=== PATIENT | male | born 1970 | race Two or more races ===

== ENCOUNTER 2022-10-16 09:09 | Outpatient (RCR) | payer OTHER, SELFPAY | END 2022-10-17 15:03 | disposition home or self-care (01) | LOC: PT 09:09 | PROVIDERS: PCP Family Medicine; Visit Provider Family Medicine | DX: M54.50 Low back pain, unspecified (principal) ==

== ENCOUNTER 2022-10-22 10:19 | Outpatient (OUT) | payer OTHER, SELFPAY ==
--- NOTE | 2022-10-22 10:45 | MR_ITS ---
The [address] [address] Patient Name: DOMENICO MCKEON MRN: [id number] date: 1970 Sex: M Assigned Patient Location: MRI Current Patient Location: MRI Accession/Order Number: [id number] Exam Date: 10/22/2022 10:45 Report Date: 10/22/2022 15:41 At the request of: BRANDON LOVE Procedure: MR thoracic spine wo con EXAMINATION: MR thoracic spine wo con HISTORY: Chronic bilateral thoracic back pain M54.6 ; chronic pain radiating into left shoulder COMPARISON: CT chest 07/03/2022 TECHNIQUE: Axial T2; Sagittal T1, T2, and Stir sequences. Images were performed without contrast. FINDINGS: CORD: Normal caliber, contour, and signal intensity. BONES: No fracture, pars defect, or osseous lesion. DISCS: No significant disc/facet abnormality, spinal stenosis, or foraminal stenosis. PARASPINAL AREA: No visible mass. OTHER: Negative. IMPRESSION: 1. No appreciable central canal or foraminal stenosis, or significant degenerative changes to account for patient's symptoms. Electronically authenticated by: MADDI BENTLEY Date: 10/22/2022 15:41
== END 2022-10-22 10:20 ==
PROVIDERS: PCP Family Medicine; Visit Provider Family Medicine
DX: M54.6 Pain in thoracic spine (principal); E11.65 Type 2 diabetes mellitus with hyperglycemia; I10 Essential (primary) hypertension
CPT/HCPCS: 72146

== ENCOUNTER 2023-04-20 11:33 | Outpatient (OUT) | payer OTHER, SELFPAY ==
[2023-04-20 12:11] LABS: Estimated Average Glucose 128 mg/dL; Glycohemoglobin A1C 6.1 % (4.5-6.2)
== END 2023-04-20 11:34 | disposition home or self-care (01) ==
LOC: LAB 11:34
PROVIDERS: PCP Family Medicine; Visit Provider Family Medicine
DX: E11.65 Type 2 diabetes mellitus with hyperglycemia (principal)
CPT/HCPCS: 36415; 83036

== ENCOUNTER 2023-11-13 16:01 | Outpatient (OUT) | payer OTHER, SELFPAY ==
--- OUTSIDE RECORDS SUMMARY | 2023-11-13 16:05 | XMS_ITS ---
Patient Summarization (C-CDA 2.1 CCD) Created on: November 13, 2023 DOMENICO MCKEON : 1970 Sex: Male Author Organization Sample organization Care Team Providers Care Software Developer Manager Name Role Phone PHYSICIAN, DEFAULT Unavailable Unavailable PHYSICIAN, DEFAULT Unavailable Unavailable PHYSICIAN, DEFAULT Unavailable Unavailable PHYSICIAN, DEFAULT Unavailable Unavailable NADERER, DR BLAYNE Dominguez Attending Unavailable NADERER, DR BLAYNE Dominguez Primary Care Unavailable NADERER, DR BLAYNE Dominguez Admitting Unavailable NADERER, DR BLAYNE Dominguez Attending Unavailable NADERER, DR BLAYNE Dominguez Primary Care Unavailable NADERER, DR BLAYNE Dominguez Admitting Unavailable REINECK, DR BARRERA Bautista Consulting Unavailabl e INEZEBLEONEL, DR MADDI Dao Consulting Unavailable NADERER, DR BLAYNE Dominguez Consulting Unavailable GRECHNY ., OCTAVIANO STONE Consulting Unavailabl e TROTTI, GIRJEROME Consulting Unavailable SISTER, MAC Consulting Unavailable DIAB ., PHYLLIS Consulting Unavailable NADERER, DR BLAYNE Dominguez Primary Care Unavailable WEST, DR MERT Rawls Consulting Unavailable HIGHLANDER, DARRELL Diego Attending Unavailable HIGHLANDER, DARRELL Diego Admitting Unavailable HIGHLANDER, DARRELL Diego Consulting Unavailable NADERER, DR BLAYNE Dominguez Consulting Unavailable NADERER, DR BLAYNE Dominguez Attending Unavailable NADERER, DR BLAYNE Dominguez Admitting Unavailable NADERER, DR BLAYNE Dominguez Primary Care Unavailable NADERER, DR BLAYNE Dominguez Attending Unavailable NADERER, DR BLAYNE Dominguez Admitting Unavailable NADERER, DR BLAYNE Dominguez Primary Care Unavailable WEST, DR MERT Rawls Consulting Unavailable NADERER, DR BLAYNE Dominguez Consulting Unavailable NADERER, DR BLAYNE Dominguez Consulting Unavailable NADERER, DR BLAYNE Dominguez Attending Unavailable NADERER, DR BLAYNE Dominguez Admitting Unavailable NADERER, DR BLAYNE Dominguez Primary Care Unavailable NADERER, DR BLAYNE Dominguez Attending Unavailable NADERER, DR BLAYNE Dominguez Admitting Unavailable NADERER, DR BLAYNE Dominguez Primary Care Unavailable NADERER, DR BLAYNE Dominguez Attending Unavailable ZIEBER, DR MADDI Dao Consulting Unavailable NADERER, DR BLAYNE Dominguez Primary Care Unavailable NADERER, DR BLAYNE Dominguez Admitting Unavailable NADERER, DR BLAYNE Dominguez Consulting Unavailable NADERER, DR BLAYNE Dominguez Consulting Unavailable NADERER, DR BLAYNE Dominguez Attending Unavailable NADERER, DR BLAYNE Dominguez Primary Care Unavailable NADERESylwia, DR BLAYNE Dominguez Admitting Unavailable ROSEMARY ENG Consulting Unavailable NADERESylwia, DR BLAYNE Dominguez Attending Unavailable NADERER, DR BLAYNE Dominguez Admitting Unavailable NADERER, DR BLAYNE Dominguez Primary Care Unavailable NADERER, DR BLAYNE Dominguez Primary Care Unavailable HAY ., DR SIMON Attending Unavailable HAY ., DR SIMON Admitting Unavailable HAY ., DR SIMON Consulting Unavailable NADERESylwia, DR BLAYNE Dominguez Primary Care Unavailable DAVE, YOBANI Diego Admitting Unavailable KATLOREN, YOBANI Diego Attending Unavailable GRECHNY ., OCTAVIANO STONE Consulting Unavailsonia BENTON, JOHN Consulting Unavailable Blayne Love MD Primary Care Provider [phone] IVAN, BLAYNE Attending Unavailable NADERESylwia, BLAYNE Attending Unavailable IVAN, BLAYNE Attending Unavailable Encounters Encounter Date Encounter Type Care Provider Facility Start: 11-09-2023 End: 11-09-2023 ambulatory BLAYNE LOVE Not Available Start: 08-10-2023 End: 08-10-2023 ambulatory BLAYNE LOVE Not Available Start: 06-30-2023 Refill Blayne Diego Work Phone: [facility] Comment on above: Chronic migraine wit hout aura, not intractable, without status migrainosus (CMS/HCC); Chronic migraine without aura (CMS/HCC) Start: 06-26-2023 Refill Blayne Diego Work Phone: [facility] Comment on above: Other specified abno rmal findings of blood chemistry Start: 06-23-2023 Refill Blayne Diego Work Phone: [facility] Comment on above: 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, bilateral Start: 04-20-2023 End: 04-20-2023 ambulatory BLAYNE LOVE Not Available Start: 08-01-[address] BLAYNE LOVE Facil ity:[facility] Start: 07-03-2022 End: 07-03-[address] BLAYNE LOVE Facility:[facility] Start: 06-24-2022 End: 06-25-[address] BLAYNE LOVE Facility:[facility] Start: 05-05-2022 End: 05-05-[address] BLAYNE LOVE Facility:[facility] Start: 04-30-2022 End: 04-30-[address] BLAYNE LOVE Facility:[facility] Start: 02-06-[address] BLAYNE LOVE [facility] ity:[facility] Start: 02-05-2022 End: 02-06-[address] BLAYNE LOVE Facility:[facility] Start: 01-29-2022 End: 01-30-[address] BLAYNE LOVE Facility:[facility] Start: 08-30-2021 End: 12-13-[address] BLAYNE LOVE Facility:[facility] Start: 08-29-2021 End: 08-30-[address] BLAYNE LOVE Facility:[facility] Start: 08-16-2021 End: 08-17-[address] BLAYNE LOVE Facility:[facility] Start: 08-08-2021 End: 08-09-[address] BLAYNE LOVE Facility:[facility] Start: 04-20-2017 End: 04-21-2017 Ambulatory DEFAULT PHYSICIAN Facility:[facility] Start: 04-15-2017 End: 04-16-2017 Ambulatory DEFAULT PHYSICIAN Facility:[facility] Medical Equipment Procedure Code Equipment Code Equipment Origin al Text Equipment Identifier Dates USE DIRECTED WITH LANCETS [id number] Start: 12-30-2022 USE 1 A DAY [id number] Start: 03-07-2023 TEST ONCE A DAY [id number] Start: 04-12-2023 Immunizations Immunization Date Immunization Notes Care Provider [facility] 07-02-2022 influenza virus vacc ine, unspecified formulation Blayne Love MD Work Phone: [facility] Medications Current Medications Medication Drug Class(es) Dates Sig (Normalized) Sig (Original) acetaminophen 325 mg / butalbital 50 mg / caffeine 40 mg oral tablet (4 sources) Barbiturate, Central Nervous System Stimulant, Methylxanthine Start: 06-30-2023 take 1 tablet by mouth every four hours as needed butalbital-acetam inophen-caffeine 50-325-40 MG tablet Indications: Chronic migraine without aura, not intractable, without status migrainosus (CMS/HCC) , Chronic migraine without aura (CMS/HCC) TAKE 1 TABLET BY MOUTH EVERY 4 HOURS NEEDED 60 tablet 4 06/30/2023 Active Start: 05-01-2023 End: 06-30-2023 take 1 tablet by mouth every four hours as needed ccagqkyjmw-imnpasqltvtvx-ftcknpyn 50-325 -40 MG tablet Indications: Chronic migraine without aura, not intractable, without status migrainosus (CMS/HCC) , Chronic migraine without aura (CMS/HCC) TAKE 1 TABLET BY MOUTH EVERY 4 HOURS NEEDED 60 tablet 4 05/01/2023 06/30/2023 Discontinued acetaminophen 325 mg / oxyCODONE hydrochloride 10 mg oral tablet (4 sources) Opioid Agonist Start: 05-22-2023 End: 06-23-2023 take 1 tablet by mouth four times daily as needed for pain oxyCODONE-acetaminophen (Percocet) 10-325 MG tablet Indications: Primary osteoarthritis of ankles, bilateral Take 1 tablet by mouth 4 (four) times a day as needed for severe pain 120 tablet 0 06/23/2023 Active amitriptyline hydrochloride 25 mg oral tablet (3 sources) Tricyclic Antidepressant take 1 tablet by mouth at bedtime amitriptyline (Elavil) 25 MG tablet Take 1 tablet by mouth at bedtime. 0 Active amLODIPine 5 mg oral tablet (3 sources) Dihydropyridine Calcium Channel Santiago take 1 tablet by mouth in the morning amLODIPine (Norvasc) 5 MG tablet Take 1 tablet by mouth in the morning. 0 Active atorvastatin 20 mg oral tablet (3 sources) HMG-CoA Reductase Inhibitor take 1 tablet by mouth in the morning atorvastatin (Lipitor) 20 MG tablet Take 1 tablet by mouth in the morning. 0 Active BD Disp Francisco 21G X 1-1/2 misc (3 sources) Start: 06-24-2022 BD Disp Francisco 21G X 1-1/2 misc USE DIRECTED TWICE A MONTH 0 06/24/2022 Active glipiZIDE 10 mg oral tablet (3 sources) Sulfonylurea Start: 06-01-2023 take 1 tablet by mouth twice daily glipiZIDE (Glucotrol) 10 MG tablet Indications: Type 2 diabetes mellitus with hyperglycemia (CMS/HCC) TAKE 1 TABLET BY MOUTH TWICE A DAY 180 tablet 3 06/01/2023 Active hydroCHLOROthiazide 25 mg / lisinopril 20 mg oral tablet (3 sources) Thiazide Diuretic, Angiotensin Converting Enzyme Inhibitor Start: 04-28-2023 take 2 tablets by mouth once daily lisinopril-hydroCHLOROthi azide 20-25 MG tablet Indications: Essential (primary) hypertension (CMS/HCC) , Benign essential hypertension (CMS/HCC) TAKE 2 TABLETS BY MOUTH EVERY DAY 180 tablet 3 04/28/2023 Active 24 hr metFORMIN hydrochloride 500 mg extended release oral tablet (6 sources) Biguanide Start: 06-23-2023 take 2 tablets by mouth twice daily metFORMIN XR (Glucophage-XR) 500 MG 24 hr tablet Indications: Type 2 diabetes mellitus with hyperglycemia, without long-term current use of insulin (CMS/HCC) TAKE 2 TABLETS BY MOUTH TWICE A DAY 360 tablet 3 06/23/2023 Active take 2 tablets by mouth in the m orning metFORMIN (Glucophage) 500 MG tablet Take 2 tablets by mouth in the morning and 2 tablets in the evening. Take with meals. 0 Active polyethylene glycol 3350 01354 mg powder for oral solution (3 sources) Osmotic Laxative take 1 dose by mouth in the morning polyethylene glycol, PEG, 3350 (Miralax) 17 g packet Take 1 packet by mouth in the morning. 0 Active tadalafil 5 mg oral tablet (3 sources) Phosphodiesterase 5 Inhibitor take 1 tablet by mouth in the morning tadalafil (Cialis) 5 MG tablet Take 1 tablet by mouth in the morning. 0 Active 1 ml testosterone cypionate 200 mg/ml injection (4 sources) Androgen Start: 024 testosterone cypionate (Depo-Testosterone) 200 MG/ML injection Indications: Other specified abnormal findings of blood chemistry INJECT 1 ML INTRAMUSCULLARLY EVERY 2 WEEKS 10 mL 0 06/29/2023 Active End: 06-29-2023 testosterone cypionate (Depo -Testosterone) 200 MG/ML injection Inject 1 mL into the shoulder, thigh, or buttocks every 14 (fourteen) days. 0 06/29/2023 Discontinued Tirzepatide (Mounjaro) 5 MG/0.5ML solution pen-injector (3 sources) Start: 04-28-2023 inject 0.5 mL by subcutaneous injection every week Tirzepatide (Mounjaro) 5 MG/0.5ML solution pen-injector Indications: Type 2 diabetes mellitus with hyperglycemia, without long-term current use of insulin (CMS/HCC) Inject 0.5 mL under the skin 1 (one) time per week 2 mL 5 04/28/2023 Active tiZANidine 4 mg oral tablet (3 sources) Central alpha-2 Adrenergic Agonist take 1 tablet by mouth every eight hours as needed tiZANidine (Zanaflex) 4 MG tablet Take 1 tablet by mouth every 8 (eight) hours if needed for muscle spasms. 0 Active topiramate 50 mg oral tablet (3 sources) Start: 06-23-2023 take 1 tablet by mouth twice daily topiramate 50 MG tablet Indications: Chronic migraine without aura with status migrainosus, not intractable (CMS/HCC) TAKE 1 TABLET BY MOUTH TWICE A DAY 180 tablet 3 06/23/2023 Active traZODone hydrochloride 100 mg oral tablet (3 sources) Serotonin Reuptake Inhibitor Start: 06-23-2023 take 1 tablet by mouth once daily at bedtime traZODone (Desyrel) 100 MG tablet Indications: Primary insomnia TAKE 1 TABLET BY MOUTH EVERYDAY AT BEDTIME 90 tablet 3 06/23/2023 Active Payers Date Payer Category Payer Unknown 1970 Unknown [id number] 2.16.84 [id number] 1970 Unknown [id number] 2.16.84 [id number] 1970 Unknown [id number] 2.16.84 [id number] 1970 Unknown [id number] 2.16.84 [id number] 1970 Unknown [id number] 2.16.84 [id number] 1970 Unknown [id number] 2.16.84 [id number] 1970 Unknown [id number] 2.16.84 [id number] 1970 Unknown [id number] 2.16.84 [id number] 1970 Unknown [id number] 2.16.84 [id number] 1970 Unknown [id number] 2.16.84 [id number] 1970 Unknown [id number] 2.16.84 [id number] 1970 Unknown [id number] 2.16.84 [id number] 1970 Unknown [id number] 2.16.84 [id number] 1970 Unknown [id number] 2.16.84 [id number] 1970 Unknown [id number] 2.16.840 .[id number] 1958 Unknown [id number] 1958 Unknown [id number] 1958 Unknown [id number] Plan of Treatment Date Care Activity Detail Author Start: 08-10-2023 End: 08-10-2023 Patient encounter procedure 08/10/2023 11:45 AM EDT Office Visit [facility] [address] [place] [address] Blayne Love MD [address] [place] [phone] [facility] Start: 06-24-2023 Urine screening for protein Diabetes: Urine Protein Screening [facility] Start: 01-16-2023 Influenza vaccination Influenza Vacc ine (#1) [facility] Start: 1981 Glaucoma screening Diabetes: R etinopathy Screening [facility] Start: 1970 Hemoglobin A1c measurement Diabetes: Hemoglobin A1C [facility] Start: 1970 Screening for malign ant neoplasm of colon [facility] Problems Active Problems Problem Classification Problem Date Documented Da te Episodic/Chronic Acute and unspecified renal failure (1 source) Acute kidney failure, unspecified; Translations: [ACUTE KIDNEY FAILURE UNSPECIFIED] Onset: 07-07-2022 Episodic Diabetes mellitus with complications (7 sources) Type 2 diabetes mellitus with hyperglycemia; Translations: [Type 2 diabetes mellitus] Onset: 07-03-2022 Chronic Diabetes mellitus without complication (1 source) Type 2 diabetes mellitus without complications; Translations: [TYPE 2 DM WITHOUT COMPLICATIONS] Onset: 05-07-2022 Chronic Disorders of lipid metabolism (4 sources) Hyperlipidemia, unspecified; Translations: [Dyslipidemia] Onset: 07-07-2022 04-20-2023 Chronic Essential hypertension (8 sources) Essential (primary) hypertension; Translations: [Benign hypertension] Onset: 05-05-2022 Chronic Fluid and electrolyte disorders (1 source) Dehydration; Translations: [DEHYDRATION] Onset: 07-07-2022 Episodic Headache; including migraine (5 sources) Migraine without aura, not refractory ; Translations: [Chronic migraine without aura, not intractable, with status migrainosus] Onset: 04-20-2023 04-20-2023 Chronic Miscellaneous mental health disorders (3 sources) Primary insomnia; Translations: [Primary insomnia] Onset: 04-20-2023 04-20-2023 Chronic Osteoarthritis (5 sources) Primary osteoarthritis, right ankle and foot; Translations: [Primary osteoarthritis of ankle] Onset: 07-07-2022 06-23-2023 Chronic Other aftercare (1 source) residential (current) use of oral hypoglycemic drugs; Translations: [[facility] USE ORAL HYPOGLYCEMIC DX] Onset: 07-07-2022 Episodic Other aftercare (1 source) Other lobsterman (current) drug therapy; Translations: [OTH [facility] CURRENT DRUG THERAPY] Onset: 07-07-2022 Episodic Other connective tissue disease (3 sources) Muscle pain; Translations: [Myalgia, unspecified site] Onset: 04-20-2023 04-20-2023 Episodic Other gastrointestinal disorders (3 sources) Chronic constipation; Translations: [Other constipation] Onset: 04-20-2023 04-20-2023 Episodic Other inflammatory condition of skin (3 sources) Seborrheic dermatitis; Translations: [Seborrheic dermatitis, unspecified] Onset: 04-20-2023 04-20-2023 Episodic Other male genital disorders (3 sources) Secondary erectile dysfunction; Translations: [Male erectile dysfunction, unspecified] Onset: 04-20-2023 04-20-2023 Chronic Other non-traumatic joint disorders (3 sources) Joint pain; Translations: [Pain in unspecified joint] Onset: 04-20-2023 04-20-2023 Episodic Other nutritional; endocrine; and metabolic disorders (1 source) Morbid (severe) obesity due to excess calories; Translations: [MORBID SEVERE OBES D/T EXCESS ANDI] Onset: 06-25-2022 Chronic Other nutritional; endocrine; and metabolic disorders (1 source) Body mass index (BMI) 40.0-44.9, adult; Translations: [BODY MASS INDEX BMI 40.0-44.9 ADULT] Onset: 06-25-2022 Chronic Other nutritional; endocrine; and metabolic disorders (3 sources) Morbid obesity; Translations: [Morbid (severe) obesity due to excess calories] Onset: 04-20-2023 04-20-2023 Chronic Other screening for suspected conditions (not mental disorders or infectious disease) (3 sources) Other specified abnormal findings of blood chemistry; Translations: [Encounter for screening for malignant neoplasm of prostate] Onset: 06-25-2022 06-26-2023 Episodic Other upper respiratory disease (3 sources) Deviated nasal septum; Translations: [Deviated nasal septum] Onset: 04-20-2023 04-20-2023 Episodic Other upper respiratory infections (3 sources) Chronic pansinusitis; Translations: [Chronic pansinusitis] Onset: 04-20-2023 04-20-2023 Chronic Residual codes; unclassified (1 source) Obstructive sleep apnea (adult) (pediatric); Translations: [OBSTRUCTIVE SLEEP APNEA] Onset: 07-07-2022 Chronic Residual codes; unclassified (3 sources) Obstructive sleep apnea syndrome; Translations: [Obstructive sleep apnea (adult) (pediatric)] Onset: 04-20-2023 04-20-2023 Chronic Spondylosis; intervertebral disc disorders; other back problems (5 sources) Dorsalgia, unspecified; Translations: [Lumbago with sciatica, unspecified side] Onset: 08-14-2021 04-20-2023 Episodic Unclassified (3 sources) LOW BACK PAIN, UNSPECIFIED; Translations: [LOW BACK PAIN, UNSPECIFIED] Onset: 08-01-2022 Unclassified (1 source) [facility] INJECT NONINSULN ANTIDIAB; Translations: [[facility] INJECT NONINSULN ANTIDIAB] Onset: 07-07-2022 Unclassified (1 source) CONTACT W/AND (SUSP) EXPOS COVID-19; Translations: [CONTACT W/AND (SUSP) EXPOS COVID-19] Onset: 05-02-2022 Viral infection (1 source) COVID-19; Translations: [COVID-19] Onset: 07-07-2022 Past or Other Problems Problem Classification Problem Date Documented Da te Episodic/Chronic Nonspecific chest pain (4 sources) Chest pain, unspecified; Translations: [CHEST PAIN UNSPECIFIED] Onset: 02-05-2022 Episodic Other connective tissue disease (1 source) Pain in right foot; Translations: [PAIN IN RIGHT FOOT] Onset: 09-04-2021 Episodic Other connective tissue disease (1 source) Pain in left foot; Translations: [PAIN IN LEFT FOOT] Onset: 09-04-2021 Episodic Other connective tissue disease (1 source) Achilles tendinitis, left leg; Translations: [ACHILLES TENDINITIS LEFT LEG] Onset: 08-21-2021 Episodic Other connective tissue disease (1 source) Peroneal tendinitis, left leg; Translations: [PERONEAL TENDINITIS LEFT LEG] Onset: 08-21-2021 Episodic Other non-traumatic joint disorders (4 sources) Pain in right ankle and joints of right foot; Translations: [PAIN IN RIGHT ANKLE] Onset: 08-29-2021 Episodic Other non-traumatic joint disorders (1 source) Pain in left ankle and joints of left foot; Translations: [PAIN IN LEFT ANKLE] Onset: 09-04-2021 Episodic Other non-traumatic joint disorders (1 source) Pain in right knee; Translations: [PAIN IN RIGHT KNEE] Onset: 08-14-2021 Episodic Other upper respiratory infections (1 source) Acute upper respiratory infection, unspecified; Translations: [ACUTE UP RESPIRATORY INFECTION UNS] Onset: 05-02-2022 Episodic Sprains and strains (9 sources) Sprain of unspecified ligament of right ankle, subsequent encounter; Translations: [Sprain of tibiofibular ligament of unspecified ankle, subsequent encounter] Onset: 08-14-2021 Episodic Superficial injury; contusion (1 source) Contusion of left ankle, initial encounter; Translations: [CONTUSION LEFT ANKLE INITIAL ENC] Onset: 08-21-2021 Episodic Unclassified (1 source) LOW BACK PAIN, UNSPECIFIED; Translations: [LOW BACK PAIN, UNSPECIFIED] Onset: 08-01-2022 Procedures Date Procedure Procedure Detail Performing Clinician Start: 06-24-[address] BLAYNE RAMACHANDRAN Comment on above: Performed By: #### P SAS #### [facility] [address] [place] [address] Dr. Sheela Zhang Results Test Name Value Interpretation Reference Range Facility CBC AUTO DIFFon 07-03-2022 BASO # 0.0 103/ul Normal 0.0-0.1 [facility] Comment on above: Performed By: #### C VDTBH #### [facility] [address] [address] [address] Sheela Zhang Basophils/100 WBC (Bld) 0.2 % Normal 0.2-2.0 [facility] Comment on above: Performed By: #### C VDTBH #### [facility] [address] [place] [address] Dr. Sheela Zhang EO # 0.0 103/ul Normal 0.0-0.7 [facility] Comment on above: Performed By: #### C VDTBH #### [facility] [address] [address] [address] Sheela Zhang Eosinophils/100 WBC (Bld) 0.0 % Critically low 0.9-7.0 [facility] Comment on above: Performed By: #### C VDTBH #### [facility] [address] [place] [address] Dr. Sheela Zhang Erythrocyte distribution width (RBC) [Ratio] 13.3 % Normal 11.0-15.0 [facility] Comment on above: Performed By: #### C VDTBH #### [facility] [address] [place] [address] Dr. Sheela Zhang Hematocrit (Bld) [Volume fraction] 45.2 % Normal 42.0-54.0 [facility] Comment on above: Performed By: #### C VDTBH #### [facility] [address] [place] [address] Dr. Sheela Zhang Hemoglobin (Bld) [Mass/Vol] 15.4 g/dL Normal 14.0-18.0 [facility] Comment on above: Performed By: #### C VDTBH #### [facility] [address] [place] [address] Dr. Sheela Zhang IG # 0.04 10e3/ul Critically high 0.00-0.03 [facility] Comment on above: Performed By: #### C VDTBH #### [facility] [address] [place] [address] Dr. Sheela Zhang IG % 0.3 % Normal 0.0-0.5 [facility] Comment on above: Performed By: #### C VDTBH #### [facility] [address] [place] [address] Dr. Sheela Zhang LYMPH # 2.2 103/ul Normal 1.2-3.8 [facility] Comment on above: Performed By: #### C VDTBH #### [facility] [address] [place] [address] Dr. Sheela Zhang Lymphocytes/100 WBC (Bld) 17.4 % Critically low 20.5-60.0 [facility] Comment on above: Performed By: #### C VDTBH #### [facility] [address] [place] [address] Dr. Sheela Zhang MANUAL DIFF REQ NO Normal [facility] Comment on above: Performed By: #### C VDTBH #### [facility] [address] [place] [address] Dr. Sheela Zhang MCH (RBC) [Entitic mass] 29.2 pg Normal 25.9-34.0 [facility] Comment on above: Performed By: #### C VDTBH #### [facility] [address] [place] [address] Dr. Sheela Zhang MCHC (RBC) [Mass/Vol] 34.1 g/dL Normal 29.9-35.2 [facility] Comment on above: Performed By: #### C VDTBH #### [facility] [address] [place] [address] Dr. Sheela Zhang MCV (RBC) [Entitic vol] 85.6 fL Normal 80.0-94.0 [facility] Comment on above: Performed By: #### C VDTBH #### [facility] [address] [place] [address] Dr. Sheela Zhang MONO # 0.8 103/ul Normal 0.3-0.8 [facility] Comment on above: Performed By: #### C VDTBH #### [facility] [address] [place] [address] Dr. Sheela Zhang Monocytes/100 WBC (Bld) 6.1 % Normal 1.7-12.0 [facility] Comment on above: Performed By: #### C VDTBH #### [facility] [address] [place] [address] Dr. Sheela Zhang NEUT # 9.5 103/ul Critically high 1.4-6.5 [facility] Comment on above: Performed By: #### C VDTBH #### [facility] [address] [place] [address] Dr. Sheela Zhang Neutrophils/100 WBC (Bld) 76.0 % Critically high 43.0-75.0 [facility] Comment on above: Performed By: #### C VDTBH #### [facility] [address] [place] [address] Dr. Sheela Zhang Platelet mean volume (Bld) [Entitic vol] 9.7 fL Normal 9.5-13.5 [facility] Comment on above: Performed By: #### C VDTBH #### [facility] [facility] [address] [place] [address] Dr. Sheela Zhang PLT 273 103/ul Normal 150-450 [facility] Comment on above: Performed By: #### C VDTBH #### [facility] [address] [place] [address] Dr. Sheela Zhang RBC 5.28 106/ul Normal 4.70-6.10 [facility] Comment on above: Performed By: #### C VDTBH #### [facility] [address] [place] [address] Dr. Sheela Zhang WBC 12.4 103/ul Critically high 4.0-11.0 [facility] Comment on above: Performed By: #### C [facility] #### [facility] [address] [address] [address] CHEST WO CONon 07-03-2022 CT CHEST WO CON EXAMINATION: CT CHES T WO CON HISTORY: SHORTNESS OF BREATH COMPARISON: No relevant comparison available. TECHNIQUE: Axial, Coronal, and Sagittal images were created without the administration of IV contrast material. Dose reduction techniques were achieved by using automated exposure control and/or adjustment of mA and/or kV according to patient size and/or use of iterative reconstruction technique. FINDINGS: LUNGS: Mild stranding within lung bases. Lungs are otherwise clear. PLEURA: No mass, effusion, or pneumothorax. VASCULATURE: No abnormality. DIVYA: No mass or adenopathy. MEDIASTINUM: No mass or adenopathy. CARDIAC: No enlargement or pericardial thickening. AORTA: No aneurysm or dissection. CHEST WALL: No mass or axillary adenopathy. BONES: No bone lesion or fracture. LIMITED ABDOMEN: No suspicious findings. Limited images of the upper abdomen. OTHER: Negative. IMPRESSION: 1. Trace amount of bibasilar stranding; atelectasis versus scarring versus infectious infiltrates. Electronically authenticated by: MADDI BENTLEY Date: 2022-07-03 08:23 Normal [facility]18 SARS-CoV-2 (COVID-19) RNA KOREY+probe Ql (Unsp spec) Detected Abnormal NOT DETECTED [facility] Comment on above: Result Comment: This test is not yet approved or cleared by the [place] FDA. When there are no FDA-approved or cleared tests available, and other criteria are met, FDA can make tests available under an emergency access mechanism called an Emergency Use Authorization (EUA). The EUA for this test is supported by the [place] of Health and Human Service's declaration that circumstances exist to justify the emergency use of in vitro diagnostics for the detection and/or diagnosis of the virus that causes COVID-19. This EUA will remain in effect for the duration of the COVID-19 declaration justifying emergency of IVDs, unless it is terminated or revoked by the FDA (after which the test may no longer be used). Performed By: #### C VDTBH #### [facility] [address] [address] [address] Sheela Zhang POINT OF CARE GLUCOSEon 06-18 Glucose [Mass/Vol] 458 mg/dL Critically high [address] [place] [address] Comment on above: Performed By: #### P OCGLUC ####[facility] [address] [id number]. Sheela Zhang Glucose [Mass/Vol] 403 mg/dL Critically high [address] [place] [address] Comment on above: Performed By: #### C VDTBH #### [facility] [address] [address] [address] Sheela Zhang Glucose [Mass/Vol] 336 mg/dL Critically high [address] [place] [address] Comment on above: Performed By: #### P OCGLUC #### [facility] [address] [address] [address] Sheela Zhang Glucose [Mass/Vol] 258 mg/dL Critically high [address] [place] [address] Comment on above: Performed By: #### P OCGLUC ####[facility] [address] [address]Dr. Sheela Zhang Glucose [Mass/Vol] 268 mg/dL Critically high [address] [place] [address] Comment on above: Performed By: #### C VDTBH #### [facility] [address] [address] [address] Sheela Zhang PROF 14(COMP METB)on 023 Albumin [Mass/Vol] 4.0 g/dL Normal 3.4-5.0 [facility] Comment on above: Performed By: #### C VDTBH #### [facility] [address] [address] [address] Sheela Zhang Albumin/Globulin [Mass ratio] 1.1 {ratio} Normal [facility] Comment on above: Performed By: #### C VDTBH #### [facility] [address] [address] [address] Sheela Zhang ALP [Catalytic activity/Vol] 105 U/L Normal 46-116 [facility] Comment on above: Performed By: #### C VDTBH #### [facility] [address] [place] [address] Dr. Sheela Zhang ALT [Catalytic activity/Vol] 34 U/L Normal 16-63 [facility] Comment on above: Performed By: #### C VDTBH #### [facility] [address] [address] [address] Sheela Zhang Anion gap [Moles/Vol] 13.4 mmol/L Normal [facility] Comment on above: Performed By: #### C VDTBH #### [facility] [address] [place] [address] Dr. Sheela Zhang AST [Catalytic activity/Vol] 20 U/L Normal 15-37 [facility] Comment on above: Performed By: #### C VDTBH #### [facility] [address] [place] [address] Dr. Sheela Zhang Bilirubin [Mass/Vol] 0.3 mg/dL Normal 0.2-1.0 [facility] Comment on above: Performed By: #### C VDTBH #### [facility] [address] [place] [address] Dr. Sheela Zhang Calcium [Mass/Vol] 9.0 mg/dL Normal 8.5-10.1 [facility] Comment on above: Performed By: #### C VDTBH #### [facility] [address] [address] [address] Sheela Zhang Chloride [Moles/Vol] 97 mmol/L Critically low 98-107 [facility] Comment on above: Performed By: #### C VDTBH #### [facility] [address] [address] [address] Sheela Zhang CO2 [Moles/Vol] 28.2 mmol/L Normal 21.0-32.0 [facility] Comment on above: Performed By: #### C VDTBH #### [facility] [address] [place] [address] Dr. Sheela Zhang Creatinine [Mass/Vol] 1.15 mg/dL Normal 0.70-1.30 [facility] Comment on above: Performed By: #### C VDTBH #### [facility] [address] [place] [address] Dr. Sheela Zhang EGFR-AF ANGUILLAN >60 Normal >=60 [facility] Comment on above: Performed By: #### C VDTBH #### [facility] [address] [address] [address] Sheela Zhang EGFR-NON AF ANGUILLAN >60 Normal >=60 [facility] Comment on above: Performed By: #### C VDTBH #### [facility] [address] [address] [address] Sheela Zhang Globulin (S) [Mass/Vol] 3.5 g/dL Normal [facility] Comment on above: Performed By: #### C VDTBH #### [facility] [address] [place] [address] Dr. Sheela Zhang Glucose [Mass/Vol] 311 mg/dL Critically high 74-106 [facility] Comment on above: Performed By: #### C VDTBH #### [facility] [address] [address] [address] Sheela Zhang Potassium [Moles/Vol] 3.6 mmol/L Normal 3.5-5.1 [facility] Comment on above: Performed By: #### C VDTBH #### [facility] [address] [address] [address] Sheela Zhang Protein [Mass/Vol] 7.5 g/dL Normal 6.4-8.2 [facility] Comment on above: Performed By: #### C VDTBH #### [facility] [address] [address] [address] Sheela Zhang Sodium [Moles/Vol] 135 mmol/L Critically low 136-145 [facility] Comment on above: Performed By: #### C VDTBH #### [facility] [address] [address] [address] Sheela Zhang Urea nitrogen [Mass/Vol] 18.0 mg/dL Normal 7.0-18.0 [facility] Comment on above: Performed By: #### C VDTBH #### [facility] [address] [place] [address] Dr. Sheela Zhang Urea nitrogen/Creatinine [Mass ratio] 15.7 mg/mg Normal [facility] Comment on above: Performed By: #### C VDTBH #### [facility] [address] [place] [address] Dr. Sheela Zhang SED RATE WESTERGRENon 2022 SED RATE 32 mm/hr Critically high <=20 [facility] Comment on above: Performed By: #### P SASC #### [facility] [address] [place] [address] Dr. Sheela Zhang ACETONE SERUMon 07-02-2022 ACETONE Negative Normal NEGATIVE [facility] Comment on above: Performed By: #### C VDTBH #### [facility] [address] [place] [address] Dr. Sheela Zhang CBC AUTO DIFFon 07-02-2022 BASO # 0.0 103/ul Normal 0.0-0.1 [facility] Comment on above: Performed By: #### C BC #### [facility] [address] [place] [address] Dr. Sheela Zhang Basophils/100 WBC (Bld) 0.1 % Critically low 0.2-2.0 [facility] Comment on above: Performed By: #### C BC #### [facility] [address] [place] [address] Dr. Sheela Zhang EO # 0.0 103/ul Normal 0.0-0.7 [facility] Comment on above: Performed By: #### C BC #### [facility] [address] [place] [address] Dr. Sheela Zhang Eosinophils/100 WBC (Bld) 0.2 % Critically low 0.9-7.0 [facility] Comment on above: Performed By: #### C BC #### [facility] [address] [place] [address] Dr. Sheela Zhang Erythrocyte distribution width (RBC) [Ratio] 13.2 % Normal 11.0-15.0 [facility] Comment on above: Performed By: #### C BC #### [facility] [address] [place] [address] Dr. Sheela Zhang Hematocrit (Bld) [Volume fraction] 46.6 % Normal 42.0-54.0 [facility] Comment on above: Performed By: #### C BC #### [facility] [address] [place] [address] Dr. Sheela Zhang Hemoglobin (Bld) [Mass/Vol] 16.0 g/dL Normal 14.0-18.0 [facility] Comment on above: Performed By: #### C BC #### [facility] [address] [place] [address] Dr. Sheela Zhang IG # 0.04 10e3/ul Critically high 0.00-0.03 [facility] Comment on above: Performed By: #### C BC #### [facility] [address] [place] [address] Dr. Sheela Zhang IG % 0.4 % Normal 0.0-0.5 [facility] Comment on above: Performed By: #### C BC #### [facility] [address] [place] [address] Dr. Sheela Zhang LYMPH # 1.4 103/ul Normal 1.2-3.8 [facility] Comment on above: Performed By: #### C BC #### [facility] [address] [place] [address] Dr. Sheela Zhang Lymphocytes/100 WBC (Bld) 15.8 % Critically low 20.5-60.0 [facility] Comment on above: Performed By: #### C BC #### [facility] [address] [place] [address] Dr. Sheela Zhang MANUAL DIFF REQ NO Normal [facility] Comment on above: Performed By: #### C BC #### [facility] [address] [place] [address] Dr. Sheela Zhang MCH (RBC) [Entitic mass] 29.5 pg Normal 25.9-34.0 [facility] Comment on above: Performed By: #### C BC #### [facility] [address] [address] [address] Sheela Zhang MCHC (RBC) [Mass/Vol] 34.3 g/dL Normal 29.9-35.2 [facility] Comment on above: Performed By: #### C BC #### [facility] [address] [address] [address] Sheela Zhang MCV (RBC) [Entitic vol] 86.0 fL Normal 80.0-94.0 [facility] Comment on above: Performed By: #### C BC #### [facility] [address] [address] [address] Sheela Zhang MONO # 0.4 103/ul Normal 0.3-0.8 [facility] Comment on above: Performed By: #### C BC #### [facility] [address] [address] [address] Sheela Zhang Monocytes/100 WBC (Bld) 4.6 % Normal 1.7-12.0 [facility] Comment on above: Performed By: #### C BC #### [facility] [address] [address] [address] Sheela Zhang NEUT # 7.1 103/ul Critically high 1.4-6.5 [facility] Comment on above: Performed By: #### C BC #### [facility] [address] [address] [address] Sheela Zhang Neutrophils/100 WBC (Bld) 78.9 % Critically high 43.0-75.0 [facility] Comment on above: Performed By: #### C BC #### [facility] [address] [address] [address] Sheela Zhang Platelet mean volume (Bld) [Entitic vol] 10.1 fL Normal 9.5-13.5 [facility] Comment on above: Performed By: #### C BC #### [facility] [address] [address] [address] Sheela Zhang PLT 269 103/ul Normal 150-450 [facility] Comment on above: Performed By: #### C BC #### [facility] [address] [address] [address] Sheela Zhang RBC 5.42 106/ul Normal 4.70-6.10 [facility] Comment on above: Performed By: #### C BC #### [facility] [address] [address] [address] Sheela Zhang WBC 8.9 103/ul Normal 4.0-11.0 [facility] Comment on above: Performed By: #### C BC #### [facility] [address] [address] [address] Sheela Zhang ER URINE PROFILEon 3 Bilirubin Ql (U) Negative Normal NEGATIVE [facility] Comment on above: Performed By: #### E RUR ####[facility] [address] [place], [place] [address]Dr. Sheela Zhang Clarity (U) CLEAR Normal CLEAR [facility] Comment on above: Performed By: #### E RUR ####[facility] [address] [place], [place] [address]Dr. Sheela Zhang Color (U) LT. YELLOW Normal YELLOW [facility] Comment on above: Performed By: #### E RUR ####[facility] [address] [place], [place] [address]Dr. Sheela Zhang ERUAHD A micrscopic examination will be performed if indicated. Normal [facility] Comment on above: Performed By: #### E RUR ####[facility] [address] [place], [place] [address]Dr. Sheela Zhang Glucose Ql (U) >1000 Abnormal NEGATIVE [facility] Comment on above: Performed By: #### E RUR ####[facility] [address] [place], [place] [address]Dr. Sheela Zhang Hemoglobin Ql (U) Negative Normal NEGATIVE [facility] Comment on above: Performed By: #### E RUR ####[facility] [address] [place], [place] [address]Dr. Sheela Zhang Ketones Ql (U) Negative Normal NEGATIVE [facility] Comment on above: Performed By: #### E RUR ####[facility] [address] [address]Dr. Sheela Zhang LEUKOCYTES Negative Normal NEGATIVE [facility] Comment on above: Performed By: #### E RUR ####[facility] [address] [address]Dr. Sheela Zhang Nitrite Ql (U) Negative Normal NEGATIVE [facility] Comment on above: Performed By: #### E RUR ####[facility] [address] [place], [place] [address]Dr. Sheela Zhang pH (U) 5.5 [pH] Normal 5-9 [facility] Comment on above: Performed By: #### E RUR ####[facility] [address] [place], [place] [address]Dr. Sheela Zhang SPEC GRAVITY <=1.005 Abnormal 1.005-<=1.025 [facility] Comment on above: Performed By: #### E RUR ####[facility] [address] [place], [place] [address]Dr. Sheela Zhang UA PROTEIN Negative Normal NEGATIVE/ TRACE [facility] Comment on above: Performed By: #### E RUR ####[facility] [address] [place], [place] [address]Dr. Sheela Zhang UR MICRO IND NOT INDICATED Normal [facility] Comment on above: Performed By: #### E RUR ####[facility] [address] [place], [place] [address]Dr. Sheela Zhang Urobilinogen Qn (U) 0.2 {Emanuel'U}/dL Normal 0.2 - 1. 0 [facility] Comment on above: Performed By: #### E RUR ####[facility] [address] [place], [place] [address]Dr. Sheela Zhang LACTATE/LACTIC ACIDon 2022 Lactate [Moles/Vol] 4.5 mmol/L Critically high 0.4-1.9 [facility] Comment on above: Performed By: #### L ACT #### [facility] [address] [address] [address] Sheela Zhang Lactate [Moles/Vol] 3.7 mmol/L Critically high 0.4-1.9 [facility] Comment on above: Performed By: #### L ACT ####[facility] [address] [address]DrDayanara Zhang LIPASEon 07-02-2022 Lipase [Catalytic activity/Vol] 95.0 U/L Normal 73.0-393.0 [facility] Comment on above: Performed By: #### C MP, HSTROPN, LIPA ####[facility] [address] [address]DrDayanara Zhang PH VENOUS BLOODon 07-02-2022 PCO2 VENOUS 34.4 mmHg Critically low 40.0-52.0 [facility] Comment on above: Performed By: #### P HVEN ####[facility] [address] [place], [place] [address]DrDayanara Zhang pH VENOUS 7.387 Normal 7.330-7.430 [facility] Comment on above: Performed By: #### P HVEN ####[facility] [address] [place], [place] [address]Dr. Sheela Zhang POINT OF CARE GLUCOSEon 06-18 Glucose [Mass/Vol] 518 mg/dL Critically high 74-106 [facility] Comment on above: Result Comment: Prev iously Confirmed Performed By: #### P OCGLUC ####[facility] [address] [address]Dr. Sheela Zhang POCGLUC >600 Critically high 74-106 [facility] Comment on above: Result Comment: Prev iously Confirmed Performed By: #### P OCGLUC ####[facility] [address] [place], [place] [address]Dr. Sheela Zhang POCGLUC >600 Critically high 74-106 [facility] Comment on above: Result Comment: Prev iously Confirmed Performed By: #### C VDTBH #### [facility] [address] [address] [address] Sheela Zhang PROF 14(COMP METB)on 023 Albumin [Mass/Vol] 4.0 g/dL Normal 3.4-5.0 [facility] Comment on above: Performed By: #### C MP, HSTROPN, LIPA ####[facility] [address] [address]Dr. Sheela Zhang Albumin/Globulin [Mass ratio] 1.1 {ratio} Normal [facility] Comment on above: Performed By: #### C MP, HSTROPN, LIPA ####[facility] [address] [address]Dr. Sheela Zhang ALP [Catalytic activity/Vol] 114 U/L Normal 46-116 [facility] Comment on above: Performed By: #### C MP, HSTROPN, LIPA ####[facility] [address] [place], [place] [address]Dr. Sheela Zhang ALT [Catalytic activity/Vol] 36 U/L Normal 16-63 [facility] Comment on above: Performed By: #### C MP, HSTROPN, LIPA ####[facility] [address] [place], [place] [address]Dr. Sheela Zhang Anion gap [Moles/Vol] 18.1 mmol/L Normal [facility] Comment on above: Performed By: #### C MP, HSTROPN, LIPA ####[facility] [address] [place], [place] [address]Dr. Sheela Zhang AST [Catalytic activity/Vol] 15 U/L Normal 15-37 [facility] Comment on above: Performed By: #### C MP, HSTROPN, LIPA ####[facility] [address] [place], [place] [address]Dr. Sheela Zhang Bilirubin [Mass/Vol] 0.4 mg/dL Normal 0.2-1.0 [facility] Comment on above: Performed By: #### C MP, HSTROPN, LIPA ####[facility] [address] [place], [place] [address]Dr. Sheela Zhang Calcium [Mass/Vol] 9.1 mg/dL Normal 8.5-10.1 [facility] Comment on above: Performed By: #### C MP, HSTROPN, LIPA ####[facility] [address] [address]Dr. Sheela Zhang Chloride [Moles/Vol] 92 mmol/L Critically low 98-107 [facility] Comment on above: Performed By: #### C MP, HSTROPN, LIPA ####[facility] [address] [address]Dr. Sheela Zhang CO2 [Moles/Vol] 23.7 mmol/L Normal 21.0-32.0 [facility] Comment on above: Performed By: #### C MP, HSTROPN, LIPA ####[facility] [address] [address]Dr. Sheela Zhang Creatinine [Mass/Vol] 1.53 mg/dL Critically high 0.70-1.30 [facility] Comment on above: Performed By: #### C MP, HSTROPN, LIPA ####[facility] [address] [place], [place] [address]Dr. Sheela Zhang EGFR-AF ANGUILLAN 58 mL/min/1.73m2 Critically low >=60 [facility] Comment on above: Performed By: #### C MP, HSTROPN, LIPA ####[facility] [address] [address]Dr. Sheela Zhang EGFR-NON AF ANGUILLAN 48 mL/min/1.73m2 Critically low >=60 [facility] Comment on above: Performed By: #### C MP, HSTROPN, LIPA ####[facility] [address] [address]Dr. Sheela Zhang Globulin (S) [Mass/Vol] 3.7 g/dL Normal [facility] Comment on above: Performed By: #### C MP, HSTROPN, LIPA ####[facility] [address] [address]Dr. Sheela Zhang Glucose [Mass/Vol] 669 mg/dL Critically high 74-106 [facility] Comment on above: Performed By: #### C MP, HSTROPN, LIPA ####[facility] [address] [address]Dr. Sheela Zhang Potassium [Moles/Vol] 3.8 mmol/L Normal 3.5-5.1 [facility] Comment on above: Performed By: #### C MP, HSTROPN, LIPA ####[facility] [address] [address]Dr. Sheela Zhang Protein [Mass/Vol] 7.7 g/dL Normal 6.4-8.2 [facility] Comment on above: Performed By: #### C MP, HSTROPN, LIPA ####[facility] [address] [address]Dr. Sheela Zhang Sodium [Moles/Vol] 130 mmol/L Critically low 136-145 [facility] Comment on above: Performed By: #### C MP, HSTROPN, LIPA ####[facility] [address] [address]Dr. Sheela Zhang Urea nitrogen [Mass/Vol] 24.0 mg/dL Critically high 7.0-18.0 [facility] Comment on above: Performed By: #### C MP, HSTROPN, LIPA ####[facility] [address] [address]Dr. Sheela Zhang Urea nitrogen/Creatinine [Mass ratio] 15.7 mg/mg Normal [facility] Comment on above: Performed By: #### C MP, HSTROPN, LIPA ####[facility] [address] [address]Dr. Sheela Zhang TROPONIN, HIGH SENSITIVITYon 07-02-2022 HSTROP 15.7 pg/mL Normal 4.0-76.1 [facility] Comment on above: Result Comment: CUT- OFF POINTS HAVE BEEN ESTABLISHED BASED ON THE FOURTH UNIVERSAL DEFINITIONS OF MYOCARDIAL INFARCTION. THE UPPER REFERENCE LIMIT (URL) OF TROPONIN, DEFINED THE 99TH PERCENTILE OF cTnI DISTRIBUTION IN A REFERENCE POPULATION, HAS BEEN CONFIRMED THE DECISION THRESHOLD FOR [place] DIAGNOSIS. Performed By: #### C MP, HSTROPN, LIPA ####[facility] [address] [place], [place] [address]ObDr. Sheela Zhang XR CHEST 1 Von 07-02-2022 XR CHEST 1 V ONE-VIEW CHEST RADIOGRAPH, 07/02/2022 6:37 PM EST COMPARISON: Chest, 05/05/2022. CLINICAL HISTORY: Shortness of breath. Findings and impression: 1. Lung volumes are diminished with some crowding of bronchopulmonary vasculature and accentuation of cardiomediastinal silhouette. 2. Some blunting of left costophrenic angle may be due to small left pleural effusion with minimal atelectasis. Some subtle underlying pneumonitis would be difficult to exclude. 3. Questionable pulmonary venous hypertension/pulmonary vascular congestion may be artifactual due to diminished lung volumes. 4. Mild cardiomegaly. 5. No acute osseous abnormality. Electronically authenticated by: Amauri LOPEZ Date: 2022-07-02 19:37 Normal [facility] TESTOSTERONE, TOTALon 2022 Testosterone [Mass/Vol] 259 ng/dL Critically low 264-916 [facility] Comment on above: Result Comment: Adul t male reference interval is based on a population of healthy nonobese males (BMI <30) between 19 and 39 years old. [place] et.al. JCEM 2017,102;4887-3737. PMID: [id number]. Performed By: #### C VDTBH #### [facility] [id number] Sheela Zhang CBC AUTO DIFFon 06-24-2022 BASO # 0.1 103/ul Normal 0.0-0.1 [facility] Comment on above: Performed By: #### P SASC #### [facility] [id number] Sheela Zhang Basophils/100 WBC (Bld) 0.9 % Normal 0.2-2.0 [facility] Comment on above: Performed By: #### P SASC #### [facility] [address] [address] [address] Sheela Zhang EO # 0.3 103/ul Normal 0.0-0.7 [facility] Comment on above: Performed By: #### P SASC #### [facility] [address] [place] [address] Dr. Sheela Zhang Eosinophils/100 WBC (Bld) 2.4 % Normal 0.9-7.0 [facility] Comment on above: Performed By: #### P SASC #### [facility] [address] [place] [address] Dr. Sheela Zhang Erythrocyte distribution width (RBC) [Ratio] 13.7 % Normal 11.0-15.0 [facility] Comment on above: Performed By: #### P SASC #### [facility] [address] [place] [address] Dr. Sheela Zhang Hematocrit (Bld) [Volume fraction] 51.2 % Normal 42.0-54.0 [facility] Comment on above: Performed By: #### P SASC #### [facility] [address] [place] [address] Dr. Sheela Zhang Hemoglobin (Bld) [Mass/Vol] 16.6 g/dL Normal 14.0-18.0 [facility] Comment on above: Performed By: #### P SASC #### [facility] [address] [place] [address] Dr. Sheela Zhang IG # 0.06 10e3/ul Critically high 0.00-0.03 [facility] Comment on above: Performed By: #### P SASC #### [facility] [address] [place] [address] Dr. Sheela Zhang IG % 0.5 % Normal 0.0-0.5 [facility] Comment on above: Performed By: #### P SASC #### [facility] [address] [place] [address] Dr. Sheela Zhang LYMPH # 3.2 103/ul Normal 1.2-3.8 [facility] Comment on above: Performed By: #### P SASC #### [facility] [address] [place] [address] Dr. Sheela Zhang Lymphocytes/100 WBC (Bld) 28.8 % Normal 20.5-60.0 [facility] Comment on above: Performed By: #### P SASC #### [facility] [address] [place] [address] Dr. Sheela Zhang MANUAL DIFF REQ NO Normal [facility] Comment on above: Performed By: #### P SASC #### [facility] [address] [place] [address] Dr. Sheela Zhang MCH (RBC) [Entitic mass] 29.1 pg Normal 25.9-34.0 [facility] Comment on above: Performed By: #### P SASC #### [facility] [address] [place] [address] Dr. Sheela Zhang MCHC (RBC) [Mass/Vol] 32.4 g/dL Normal 29.9-35.2 [facility] Comment on above: Performed By: #### P SASC #### [facility] [address] [place] [address] Dr. Sheela Zhang MCV (RBC) [Entitic vol] 89.7 fL Normal 80.0-94.0 [facility] Comment on above: Performed By: #### P SASC #### [facility] [address] [place] [address] Dr. Sheela Zhang MONO # 0.9 103/ul Critically high 0.3-0.8 [facility] Comment on above: Performed By: #### P SASC #### [facility] [address] [place] [address] Dr. Sheela Zhang Monocytes/100 WBC (Bld) 8.3 % Normal 1.7-12.0 [facility] Comment on above: Performed By: #### P SASC #### [facility] [address] [place] [address] Dr. Sheela Zhang NEUT # 6.7 103/ul Critically high 1.4-6.5 [facility] Comment on above: Performed By: #### P SASC #### [facility] [address] [place] [address] Dr. Sheela Zhang Neutrophils/100 WBC (Bld) 59.1 % Normal 43.0-75.0 [facility] Comment on above: Performed By: #### P SASC #### [facility] [address] [address] [address] Sheela Zhang Platelet mean volume (Bld) [Entitic vol] 10.2 fL Normal 9.5-13.5 [facility] Comment on above: Performed By: #### P SASC #### [facility] [address] [address] [address] Sheela Zhang PLT 269 103/ul Normal 150-450 [facility] Comment on above: Performed By: #### P SASC #### [facility] [address] [address] [address] Sheela Zhang RBC 5.71 106/ul Normal 4.70-6.10 [facility] Comment on above: Performed By: #### P SASC #### [facility] [address] [address] [address] Sheela Zhang WBC 11.3 103/ul Critically high 4.0-11.0 [facility] Comment on above: Performed By: #### P SASC #### [facility] [address] [place] [address] Dr. Sheela Zhang GLYCOHEMOGLOBIN A1Con 2022 ADA RECOMMENDATION SEE BELOW Normal [facility] Comment on above: Result Comment: ADA RECOMMENDED LIMIT 4.0 - 6.0 ADA THERAPEUTIC TARGET < 7.0 ACTION SUGGESTED > 7.0 Performed By: #### A 1C #### [facility] [address] [place] [address] Dr. Sheela Zhang Glucose [Mass/Vol] 229 mg/dL Normal [facility] Comment on above: Performed By: #### A 1C #### [facility] [address] [place] [address] Dr. Sheela Zhang HbA1c (Bld) [Mass fraction] 9.6 % Critically high 4.5-6.2 [facility] Comment on above: Performed By: #### A 1C #### [facility] [address] [address] [address] Sheela Zhang LIPID PROFILEon 06-24-2022 CHOL-HDL RATIO NORM SEE BELOW Normal [facility] Comment on above: Result Comment: 3.3 - 4.4 LOW RISK 4.4 - 7.1 AVERAGE RISK 7.1 - 11.0 MODERATE RISK >11.0 HIGH RISK Performed By: #### P SASC #### [facility] [address] [address] [address] Sheela Zhang Cholesterol [Mass/Vol] 154 mg/dL Normal <=200 [facility] Comment on above: Performed By: #### P SASC #### [facility] [address] [address] [address] Sheela Zhang Cholesterol in HDL [Mass/Vol] 34 mg/dL Critically low 40-60 [facility] Comment on above: Performed By: #### P SASC #### [facility] [address] [address] [address] Sheela Zhang Cholesterol in LDL [Mass/Vol] 64.6 mg/dL Normal [facility] Comment on above: Performed By: #### P SASC #### [facility] [address] [address] [address] Sheela Zhang Cholesterol.total/Ch olesterol in HDL [Mass ratio] 4.5 {ratio} Normal [facility] Comment on above: Performed By: #### P SASC #### [facility] [address] [address] [address] Sheela Zhang HDL NORMAL > or = 60 mg/dl - LO W CARDIOVASCULAR RISK <40 mg/dl - HIGH CARDIOVASCULAR RISK Normal [facility] Comment on above: Performed By: #### P SASC #### [facility] [address] [address] [address] Sheela Zhang LDL CALC NORMAL SEE BELOW Normal [facility] Comment on above: Result Comment: <100 mg/dl OPTIMAL 100 - 129 mg/dl NEAR OR ABOVE OPTIMAL 130 - 159 mg/dl BORDERLINE HIGH 160 - 189 mg/dl HIGH >190 mg/dl VERY HIGH Performed By: #### P SASC #### [facility] [address] [place] [address] Dr. Sheela Zhang Triglyceride [Mass/Vol] 277 mg/dL Critically high <=150 [facility] Comment on above: Performed By: #### P SASC #### [facility] [address] [place] [address] Dr. Sheela Zhang VLDL CALC 55.4 mg/dL Normal [facility] Comment on above: Performed By: #### P SASC #### [facility] [address] [address] [address] Sheela Zhang LIVER PROFILEon 06-24-2022 Albumin [Mass/Vol] 4.4 g/dL Normal 3.4-5.0 [facility] Comment on above: Performed By: #### P SASC #### [facility] [address] [place] [address] Dr. Sheela Zhang Albumin/Globulin [Mass ratio] 1.1 {ratio} Normal [facility] Comment on above: Performed By: #### P SASC #### [facility] [address] [place] [address] Dr. Sheela Zhang ALP [Catalytic activity/Vol] 103 U/L Normal 46-116 [facility] Comment on above: Performed By: #### P SASC #### [facility] [address] [place] [address] Dr. Sheela Zhang ALT [Catalytic activity/Vol] 43 U/L Normal 16-63 [facility] Comment on above: Performed By: #### P SASC #### [facility] [address] [place] [address] Dr. Sheela Zhang AST [Catalytic activity/Vol] 24 U/L Normal 15-37 [facility] Comment on above: Performed By: #### P SASC #### [facility] [address] [place] [address] Dr. Sheela Zhang BILI, CONJUGATED 0.1 mg/dL Normal 0.0-0.2 [facility] Comment on above: Performed By: #### P SASC #### [facility] [address] [place] [address] Dr. Sheela Zhang Bilirubin [Mass/Vol] 0.4 mg/dL Normal 0.2-1.0 [facility] Comment on above: Performed By: #### P SASC #### [facility] [address] [place] [address] Dr. Sheela Zhang Globulin (S) [Mass/Vol] 4.0 g/dL Normal [facility] Comment on above: Performed By: #### P SASC #### [facility] [address] [place] [address] Dr. Sheela Zhang Protein [Mass/Vol] 8.4 g/dL Critically high 6.4-8.2 [facility] Comment on above: Performed By: #### P SASC #### [facility] [address] [place] [address] Dr. Sheela Zhang MICROALBUMIN, RAND URon 02-0 mALB 3.0 mg/L Normal <=30.0 [facility] Comment on above: Performed By: #### P SASC #### [facility] [address] [place] [address] Dr. Sheela Zhang PROF CHEM 8 (BAS METB)on Anion gap [Moles/Vol] 14.2 mmol/L Normal [facility] Comment on above: Performed By: #### P SASC #### [facility] [address] [place] [address] Dr. Sheela Zhang Calcium [Mass/Vol] 10.1 mg/dL Normal 8.5-10.1 [facility] Comment on above: Performed By: #### P SASC #### [facility] [address] [place] [address] Dr. Sheela Zhang Chloride [Moles/Vol] 99 mmol/L Normal 98-107 [facility] Comment on above: Performed By: #### P SASC #### [facility] [address] [place] [address] Dr. Sheela Zhang CO2 [Moles/Vol] 29.4 mmol/L Normal 21.0-32.0 [facility] Comment on above: Performed By: #### P SASC #### [facility] [address] [address] [address] Sheela Zhang Creatinine [Mass/Vol] 1.04 mg/dL Normal 0.70-1.30 [facility] Comment on above: Performed By: #### P SASC #### [facility] [address] [address] [address] Sheela Zhang EGFR-AF ANGUILLAN >60 Normal >=60 [facility] Comment on above: Performed By: #### P SASC #### [facility] [address] [address] [address] Sheela Zhang EGFR-NON AF ANGUILLAN >60 Normal >=60 [facility] Comment on above: Performed By: #### P SASC #### [facility] [address] [address] [address] Sheela Zhang Glucose [Mass/Vol] 233 mg/dL Critically high 74-106 [facility] Comment on above: Performed By: #### P SASC #### [facility] [address] [address] [address] Sheela Zhang Potassium [Moles/Vol] 3.6 mmol/L Normal 3.5-5.1 [facility] Comment on above: Performed By: #### P SASC #### [facility] [address] [address] [address] Sheela Zhang Sodium [Moles/Vol] 139 mmol/L Normal 136-145 [facility] Comment on above: Performed By: #### P SASC #### [facility] [address] [address] [address] Shelea Zhang Urea nitrogen [Mass/Vol] 12.0 mg/dL Normal 7.0-18.0 [facility] Comment on above: Performed By: #### P SASC #### [facility] [address] [address] [address] Sheela Zhang Urea nitrogen/Creatinine [Mass ratio] 11.5 mg/mg Normal [facility] Comment on above: Performed By: #### P SASC #### [facility] [address] [address] [address] Sheela Zhang TSHon 06-24-2022 TSH 1.570 uIU/mL Normal 0.358-3.740 [facility] Comment on above: Performed By: #### P SASC #### [facility] [address] [address] [address] Sheela Zhang CBC AUTO DIFFon 05-05-2022 BASO # 0.1 103/ul Normal 0.0-0.1 [facility] Comment on above: Performed By: #### C BC ####[facility] [address] [address]DrDayanara Zhang Basophils/100 WBC (Bld) 0.8 % Normal 0.2-2.0 [facility] Comment on above: Performed By: #### C BC ####[facility] [address] [address]DrDayanara Zhang EO # 0.4 103/ul Normal 0.0-0.7 [facility] Comment on above: Performed By: #### C BC ####[facility] [address] [address]DrDayanara Zhang Eosinophils/100 WBC (Bld) 2.7 % Normal 0.9-7.0 [facility] Comment on above: Performed By: #### C BC ####[facility] [address] [address]DrDayanara Zhang Erythrocyte distribution width (RBC) [Ratio] 12.8 % Normal 11.0-15.0 [facility] Comment on above: Performed By: #### C BC ####[facility] [address] [address]DrDayanara Zhang Hematocrit (Bld) [Volume fraction] 50.3 % Normal 42.0-54.0 [facility] Comment on above: Performed By: #### C BC ####[facility] [address] [place], [place] [address]DrDayanara Zhang Hemoglobin (Bld) [Mass/Vol] 17.0 g/dL Normal 14.0-18.0 [facility] Comment on above: Performed By: #### C BC ####[facility] [address] [address]Dr. Sheela Zhang IG # 0.05 10e3/ul Critically high 0.00-0.03 [facility] Comment on above: Performed By: #### C BC ####[facility] [address] [address]Dr. Sheela Zhang IG % 0.4 % Normal 0.0-0.5 [facility] Comment on above: Performed By: #### C BC ####[facility] [address] [address]Dr. Sheela Zhang LYMPH # 3.6 103/ul Normal 1.2-3.8 [facility] Comment on above: Performed By: #### C BC ####[facility] [address] [address]Dr. Sheela Zhang Lymphocytes/100 WBC (Bld) 26.0 % Normal 20.5-60.0 [facility] Comment on above: Performed By: #### C BC ####[facility] [address] [address]Dr. Sheela Zhang MANUAL DIFF REQ NO Normal [facility] Comment on above: Performed By: #### C BC ####[facility] [address] [address]Dr. Sheela Zhang MCH (RBC) [Entitic mass] 30.0 pg Normal 25.9-34.0 [facility] Comment on above: Performed By: #### C BC ####[facility] [address] [place], [place] [address]Dr. Sheela Zhang MCHC (RBC) [Mass/Vol] 33.8 g/dL Normal 29.9-35.2 [facility] Comment on above: Performed By: #### C BC ####[facility] [address] [place], [place] [address]Dr. Sheela Zhang MCV (RBC) [Entitic vol] 88.7 fL Normal 80.0-94.0 [facility] Comment on above: Performed By: #### C BC ####[facility] [address] [address]Dr. Sheela Zhang MONO # 1.2 103/ul Critically high 0.3-0.8 [facility] Comment on above: Performed By: #### C BC ####[facility] [address] [address]Dr. Sheela Zhang Monocytes/100 WBC (Bld) 8.4 % Normal 1.7-12.0 [facility] Comment on above: Performed By: #### C BC ####[facility] [address] [address]Dr. Sheela Zhang NEUT # 8.6 103/ul Critically high 1.4-6.5 [facility] Comment on above: Performed By: #### C BC ####[facility] [address] [address]Dr. Sheela Zhang Neutrophils/100 WBC (Bld) 61.7 % Normal 43.0-75.0 [facility] Comment on above: Performed By: #### C BC ####[facility] [address] [address]Dr. Sheela Zhang Platelet mean volume (Bld) [Entitic vol] 9.6 fL Normal 9.5-13.5 [facility] Comment on above: Performed By: #### C BC ####[facility] [address] [address]Dr. Sheela Zhang PLT 275 103/ul Normal 150-450 [facility] Comment on above: Performed By: #### C BC ####[facility] [address] [address]Dr. Sheela Zhang RBC 5.67 106/ul Normal 4.70-6.10 [facility] Comment on above: Performed By: #### C BC ####[facility] [address] [address]Dr. Sheela Zhang WBC 13.9 103/ul Critically high 4.0-11.0 [facility] Comment on above: Performed By: #### C BC ####[facility] [address] [address]Dr. Sheela Zhang PROF 14(COMP METB)on 022 Albumin [Mass/Vol] 4.3 g/dL Normal 3.4-5.0 [facility] Comment on above: Performed By: #### T CASTILLO CARRENOTROPN, CMP ####[facility] [address] [address]Dr. Sheela Zhang Albumin/Globulin [Mass ratio] 1.1 {ratio} Normal [facility] Comment on above: Performed By: #### T WAI HSTROPN, CMP ####[facility] [address] [address]Dr. Sheela Zhang ALP [Catalytic activity/Vol] 118 U/L Critically high 46-116 [facility] Comment on above: Performed By: #### T CASTILLO CARRENOTROPN, CMP ####[facility] [address] [place], [place] [address]Dr. Sheela Zhang ALT [Catalytic activity/Vol] 30 U/L Normal 16-63 [facility] Comment on above: Performed By: #### T CASTILLO CARRENOTRANDRY, CMP ####[facility] [address] [place], [place] [address]Dr. Sheela Zhang Anion gap [Moles/Vol] 11.6 mmol/L Normal [facility] Comment on above: Performed By: #### T WAI, HSTRELBERTN, CMP ####[facility] [address] [place], [place] [address]Dr. Sheela Zhang AST [Catalytic activity/Vol] 19 U/L Normal 15-37 [facility] Comment on above: Performed By: #### T CASTILLO CARRENOTROPN, CMP ####[facility] [address] [place], [place] [address]Dr. Sheela Zhang Bilirubin [Mass/Vol] 0.3 mg/dL Normal 0.2-1.0 [facility] Comment on above: Performed By: #### T WAI, HSTROPN, CMP ####[facility] [address] [place], [place] [address]Dr. Sheela Zhang Calcium [Mass/Vol] 9.6 mg/dL Normal 8.5-10.1 [facility] Comment on above: Performed By: #### T CASTILLO CARRENOTRANDRY, CMP ####[facility] [address] [address]Dr. Sheela Zhang Chloride [Moles/Vol] 102 mmol/L Normal 98-107 [facility] Comment on above: Performed By: #### T WAI HSTROPN, CMP ####[facility] [address] [address]Dr. Sheela Zhang CO2 [Moles/Vol] 28.5 mmol/L Normal 21.0-32.0 [facility] Comment on above: Performed By: #### T WAI, HSTROPN, CMP ####[facility] [address] [place], [place] [address]Dr. Sheela Zhang Creatinine [Mass/Vol] 0.92 mg/dL Normal 0.70-1.30 [facility] Comment on above: Performed By: #### T WAI HSTROPN, CMP ####[facility] [address] [place], [place] [address]Dr. Sheela Zhang EGFR-AF ANGUILLAN >60 Normal >=60 [facility] Comment on above: Performed By: #### T WAI, HSTROPN, CMP ####[facility] [address] [place], [place] [address]Dr. Sheela Zhang EGFR-NON AF ANGUILLAN >60 Normal >=60 [facility] Comment on above: Performed By: #### T WAI, HSTROPN, CMP ####[facility] [address] [address]Dr. Sheela Zhang Globulin (S) [Mass/Vol] 3.8 g/dL Normal [facility] Comment on above: Performed By: #### T WAI, HSTROPN, CMP ####[facility] [address] [address]Dr. Sheela Zhang Glucose [Mass/Vol] 130 mg/dL Critically high 74-106 [facility] Comment on above: Performed By: #### T VICENTE CARRENO, CMP ####[facility] [address] [address]Dr. Aissatouisidro Zhang Potassium [Moles/Vol] 4.1 mmol/L Normal 3.5-5.1 [facility] Comment on above: Performed By: #### T VICENTE CARRENO, CMP ####[facility] [address] [address]Dr. Aissatouisidro Zhang Protein [Mass/Vol] 8.1 g/dL Normal 6.4-8.2 [facility] Comment on above: Performed By: #### T VICENTE CARRENO, CMP ####[facility] [address] [place], [place] [address]Dr. Sheela Zhang Sodium [Moles/Vol] 138 mmol/L Normal 136-145 [facility] Comment on above: Performed By: #### T VICENTE CARRENO, CMP ####[facility] [address] [place], [place] [address]Dr. Aissatouisidro Zhang Urea nitrogen [Mass/Vol] 11.0 mg/dL Normal 7.0-18.0 [facility] Comment on above: Performed By: #### T VICENTE CARRENO, CMP ####[facility] [address] [place], [place] [address]Dr. Aissatouisidro Zhang Urea nitrogen/Creatinine [Mass ratio] 12.0 mg/mg Normal [facility] Comment on above: Performed By: #### T VICENTE CARRENO, CMP ####[facility] [address] [place], [place] [address]Dr. Aissatouisidro Zhang PROTIMEon 05-05-2022 INR Coag (PPP) [Relative time] 0.97 {INR} Normal [facility] Comment on above: Performed By: #### P T, PTT ####[facility] [address] [place], [place] [address]Dr. Aissatouisidro Vicente INR GUIDELINES SEE BELOW Normal [facility] Comment on above: Result Comment: FRANCISCO JAVIER RED INR: 2.0 - 3.0 CONDITIONS NOT LISTED BELOW 2.5 - 3.5 FOR PROSTHETIC HEART VALVE REPLACEMENT 2.5 - 3.5 RECURRENT THROMBOSIS Performed By: #### P T, PTT ####[facility] [address] [address]Dr. Sheela Zhang PT Coag (PPP) [Time] 10.5 s Normal 9.0-11.6 [facility] Comment on above: Performed By: #### P T, PTT ####[facility] [address] [id number]. Sheela Zhang PTTon 05-05-2022 aPTT Coag (Bld) [Time] 27.2 s Normal 22.3-36.2 [facility] Comment on above: Performed By: #### P T, PTT ####[facility] [address] [address]Dr. Sheela Zhang TROPONIN, HIGH SENSITIVITYon 05-05-2022 HSTROP 21.3 pg/mL Normal 4.0-76.1 [facility] Comment on above: Result Comment: CUT- OFF POINTS HAVE BEEN ESTABLISHED BASED ON THE FOURTH UNIVERSAL DEFINITIONS OF MYOCARDIAL INFARCTION. THE UPPER REFERENCE LIMIT (URL) OF TROPONIN, DEFINED THE 99TH PERCENTILE OF cTnI DISTRIBUTION IN A REFERENCE POPULATION, HAS BEEN CONFIRMED THE DECISION THRESHOLD FOR [place] DIAGNOSIS. Performed By: #### T SH, HSTROPN, CMP ####[facility] [address] [address]Dr. Sheela Zhang TSHon 05-05-2022 TSH 2.155 uIU/mL Normal 0.358-3.740 [facility] Comment on above: Performed By: #### T SH, HSTROPN, CMP ####[facility] [address] [address]Dr. Sheela Zhang XR CHEST 1 Von 05-05-2022 XR CHEST 1 V EXAM: XR CHEST 1 V HISTORY: Hypertensive disorder COMPARISON: None. FINDINGS: 1 view(s) of the chest. The lungs are underpenetrated due to body habitus. Given these limitations, the lungs are clear without focal consolidation or pleural effusion. There is no pneumothorax. The cardiomediastinal silhouette is normal given the AP technique. IMPRESSION: No acute cardiopulmonary abnormality. Electronically authenticated by: JOHN BENTON Date: 2022-05-05 19:25 Normal [facility] CBC AUTO DIFFon 04-30-2022 BASO # 0.1 103/ul Normal 0.0-0.1 [facility] Comment on above: Performed By: #### C VDTBH #### [facility] [address] [place] [address] Dr. Sheela Zhang Basophils/100 WBC (Bld) 0.9 % Normal 0.2-2.0 [facility] Comment on above: Performed By: #### C VDTBH #### [facility] [address] [place] [address] Dr. Sheela Zhang EO # 0.2 103/ul Normal 0.0-0.7 [facility] Comment on above: Performed By: #### C VDTBH #### [facility] [address] [place] [address] Dr. Sheela Zhang Eosinophils/100 WBC (Bld) 1.7 % Normal 0.9-7.0 [facility] Comment on above: Performed By: #### C VDTBH #### [facility] [address] [place] [address] Dr. Sheela Zhang Erythrocyte distribution width (RBC) [Ratio] 13.0 % Normal 11.0-15.0 [facility] Comment on above: Performed By: #### C VDTBH #### [facility] [address] [place] [address] Dr. Sheela Zhang Hematocrit (Bld) [Volume fraction] 51.3 % Normal 42.0-54.0 [facility] Comment on above: Performed By: #### C VDTBH #### [facility] [address] [place] [address] Dr. Sheela Zhang Hemoglobin (Bld) [Mass/Vol] 17.2 g/dL Normal 14.0-18.0 [facility] Comment on above: Performed By: #### C VDTBH #### [facility] [address] [place] [address] Dr. Sheela Zhang IG # 0.08 10e3/ul Critically high 0.00-0.03 [facility] Comment on above: Performed By: #### C VDTBH #### [facility] [address] [place] [address] Dr. Sheela Zhang IG % 0.6 % Critically high 0.0-0.5 [facility] Comment on above: Performed By: #### C VDTBH #### [facility] [address] [place] [address] Dr. Sheela Zhang LYMPH # 3.2 103/ul Normal 1.2-3.8 [facility] Comment on above: Performed By: #### C VDTBH #### [facility] [address] [place] [address] Dr. Sheela Zhang Lymphocytes/100 WBC (Bld) 24.5 % Normal 20.5-60.0 [facility] Comment on above: Performed By: #### C VDTBH #### [facility] [address] [place] [address] Dr. Sheela Zhang MANUAL DIFF REQ NO Normal [facility] Comment on above: Performed By: #### C VDTBH #### [facility] [address] [place] [address] Dr. Sheela Zhang MCH (RBC) [Entitic mass] 29.5 pg Normal 25.9-34.0 [facility] Comment on above: Performed By: #### C VDTBH #### [facility] [address] [place] [address] Dr. Sheela Zhang MCHC (RBC) [Mass/Vol] 33.5 g/dL Normal 29.9-35.2 [facility] Comment on above: Performed By: #### C VDTBH #### [facility] [address] [place] [address] Dr. Sheela Zhang MCV (RBC) [Entitic vol] 88.0 fL Normal 80.0-94.0 [facility] Comment on above: Performed By: #### C VDTBH #### [facility] [address] [place] [address] Dr. Sheela Zhang MONO # 0.9 103/ul Critically high 0.3-0.8 [facility] Comment on above: Performed By: #### C VDTBH #### [facility] [address] [place] [address] Dr. Sheela Zhang Monocytes/100 WBC (Bld) 6.9 % Normal 1.7-12.0 [facility] Comment on above: Performed By: #### C VDTBH #### [facility] [address] [place] [address] Dr. Sheela Zhang NEUT # 8.7 103/ul Critically high 1.4-6.5 [facility] Comment on above: Performed By: #### C VDTBH #### [facility] [address] [place] [address] Dr. Sheela Zhang Neutrophils/100 WBC (Bld) 65.4 % Normal 43.0-75.0 [facility] Comment on above: Performed By: #### C VDTBH #### [facility] [address] [place] [address] Dr. Sheela Zhang Platelet mean volume (Bld) [Entitic vol] 10.0 fL Normal 9.5-13.5 [facility] Comment on above: Performed By: #### C VDTBH #### [facility] [address] [place] [address] Dr. Sheela Zhang PLT 285 103/ul Normal 150-450 [facility] Comment on above: Performed By: #### C VDTBH #### [facility] [address] [place] [address] Dr. Sheela Zhang RBC 5.83 106/ul Normal 4.70-6.10 [facility] Comment on above: Performed By: #### C VDTBH #### [facility] [address] [place] [address] Dr. Sheela Zhang WBC 13.2 103/ul Critically high 4.0-11.0 [facility] Comment on above: Performed By: #### C VDTBH #### [facility] [address] [place] [address] Dr. Sheela Zhang Covid-19 PCR (CVDTB)on 04-17 SARS-CoV-2 (COVID-19) RNA KOREY+probe Ql (Unsp spec) Not detected Normal NOT DETECTED [facility] Comment on above: Result Comment: This test is not yet approved or cleared by the [place] FDA. When there are no FDA-approved or cleared tests available, and other criteria are met, FDA can make tests available under an emergency access mechanism called an Emergency Use Authorization (EUA). The EUA for this test is supported by the Public Area Supervisor of Health and Human Service's (HHS's) declaration that circumstances exist to justify the emergency use of in vitro diagnostics for the detection and/or diagnosis of the virus that causes COVID-19. This EUA will remain in effect (meaning this test can be used) for the duration of the COVID-19 declaration justifying emergency of IVDs, unless it is terminated or revoked by FDA (after which the test may no longer be used). When diagnostic testing is negative, the possibility of a false negative should be considered in the context of a patient's recent exposures and the presence of clinical signs and symptoms consistent with SARS-CoV-2. Performed By: #### C VDTBH #### [facility] [address] [place] [address] Dr. Sheela Zhang INFLUENZA A AND B AGon 04-30 [facility] SEE BELOW Normal [facility] Comment on above: Result Comment: Nega tive for Flu A protein angiten. Infection due to Flu A cannot be ruled out. Flu A angiten in the sample may be below the detection limit of the test. Performed By: #### I NFLUAB #### [facility] [address] [place] [address] Dr. Sheela Zhang [facility] SEE BELOW Normal [facility] Comment on above: Result Comment: Nega tive for Flu B protein antigen. Infection due to Flu B cannot be ruled out. Flu B antigen in the sample may be below the detection limit of the test. Performed By: #### I NFLUAB #### [facility] [address] [address] [address] Sheela Zhang INFLUENZA A AG Negative Normal NEGATIVE SEE COMMENT [facility] Comment on above: Performed By: #### I NFLUAB #### [facility] [address] [address] [address] Sheela Zhang INFLUENZA B AG Negative Normal NEGATIVE SEE COMMENT [facility] Comment on above: Performed By: #### I NFLUAB #### [facility] [address] [address] [address] Sheela Zhang INTERNAL CONTROLS Within Normal Limits Normal Wi thin Normal Limits [facility] Comment on above: Performed By: #### I NFLUAB #### [facility] [address] [address] [address] Sheela Zhang PROF CHEM 8 (BAS METB)on Anion gap [Moles/Vol] 14.1 mmol/L Normal [facility] Comment on above: Performed By: #### P SASC #### [facility] [address] [place] [address] Dr. Sheela Zhang Calcium [Mass/Vol] 9.7 mg/dL Normal 8.5-10.1 [facility] Comment on above: Performed By: #### P SASC #### [facility] [address] [place] [address] Dr. Sheela Zhang Chloride [Moles/Vol] 102 mmol/L Normal 98-107 [facility] Comment on above: Performed By: #### P SASC #### [facility] [address] [place] [address] Dr. Sheela Zhang CO2 [Moles/Vol] 26.5 mmol/L Normal 21.0-32.0 [facility] Comment on above: Performed By: #### P SASC #### [facility] [address] [place] [address] Dr. Sheela Zhang Creatinine [Mass/Vol] 0.90 mg/dL Normal 0.70-1.30 [facility] Comment on above: Performed By: #### P SASC #### [facility] [address] [place] [address] Dr. Sheela Zhang EGFR-AF ANGUILLAN >60 Normal >=60 [facility] Comment on above: Performed By: #### P SASC #### [facility] [address] [address] [address] Sheela Zhang EGFR-NON AF ANGUILLAN >60 Normal >=60 [facility] Comment on above: Performed By: #### P SASC #### [facility] [address] [address] [address] Sheela Zhang Glucose [Mass/Vol] 125 mg/dL Critically high 74-106 [facility] Comment on above: Performed By: #### P SASC #### [facility] [address] [address] [address] Sheela Zhang Potassium [Moles/Vol] 3.6 mmol/L Normal 3.5-5.1 [facility] Comment on above: Performed By: #### P SASC #### [facility] [address] [address] [address] Sheela Zhang Sodium [Moles/Vol] 139 mmol/L Normal 136-145 [facility] Comment on above: Performed By: #### P SASC #### [facility] [address] [address] [address] Sheela Zhang Urea nitrogen [Mass/Vol] 11.0 mg/dL Normal 7.0-18.0 [facility] Comment on above: Performed By: #### P SASC #### [facility] [address] [address] [address] Sheela Zhang Urea nitrogen/Creatinine [Mass ratio] 12.2 mg/mg Normal [facility] Comment on above: Performed By: #### P SASC #### [facility] [address] [address] [address] Sheela Zhang NM STRESS/REST MULTIon 02-05 NM STRESS/REST MULTI Patient: Toshia MCKEON. Exam Date: 02/05/2022 : 1970 Gender:M Ordering : DR BLAYNE LOVE . Admission #: [id number] Family : Order #: [id number] CLICK HERE TO VIEW EXAM RADIOLOGY REPORT PROCEDURE: RADIONUCLIDE IMAGING STRESS/REST MULTI COMPARISON: None. INDICATIONS: Chest pain TECHNIQUE: Exam Description: Stress/Rest two day protocol gated SPECT Rest Imagin.7 mCi Tc-99m Cardiolite IV on 02/06/2022 Stress Imaging 25.7 mCi Tc-99m Cardiolite IV on 02/05/2022 Exercise Protocol: 0.4 mg Lexiscan given IV Heart Rate (bpm): Rest: 78 Max: 100 PMHR: 58 Blood Pressure: Rest: 164/104 Max: 180/110 Symptoms: Rest and peak stress ECG findings were normal and the exercise portion of the study was normal per attending physician Dr. Swann . For more details please see separate cardiac stress test report. FINDINGS: QUALITY OF STUDY: Good. PERFUSION DEFECT: None. LOCATION: N/A SIZE: N/A. SEVERITY: N/A. TYPE: N/A. WALL MOTION: Normal. LV SIZE: Enlarged; EDV 139 mL. TID / TCD: None; 1.0 LVEF: Abnormal. Calculated EF 54%. SUMMARY: Myocardial perfusion imaging study has ABNORMAL findings. CONCLUSION: 1. No reversible ischemia 2. Dilated left ventricle, EDV 139 milliliters 3. Borderline low left ventricular ejection fraction of 54% 4. Normal exercise test Dictated by: Mert Bah MD on 02/06/2022 at 10:39 Approved by: Mert Bah MD on 02/06/2022 at 10:51 Normal [facility] GLYCOHEMOGLOBIN A1Con 2021 ADA RECOMMENDATION SEE BELOW Normal [facility] Comment on above: Result Comment: ADA RECOMMENDED LIMIT 4.0 - 6.0 ADA THERAPEUTIC TARGET < 7.0 ACTION SUGGESTED > 7.0 Performed By: #### A 1C ####[facility] [address] [address]DrDayanara Zhang Glucose [Mass/Vol] 258 mg/dL Normal [facility] Comment on above: Performed By: #### A 1C ####[facility] [address] [address]DrDayanara Zhang HbA1c (Bld) [Mass fraction] 10.6 % Critically high 4.5-6.2 [facility] Comment on above: Performed By: #### A 1C ####[facility] [address] [address]Dr. Sheela Zhang XR FOOT SANIA MIN 3 VIEWSon 04 -14-2022 XR FOOT SANIA MIN 3 VIEWS EXAMINATION: XR FOOT SANIA MIN 3 VIEWS, XR ANKLE SANIA MIN 3 VIEWS HISTORY: Pain in both feet COMPARISON: 08/08/2021 FINDINGS: RIGHT FINDINGS: BONES: No acute fracture or dislocation. No focal lytic or sclerotic changes. Mild enthesopathic spurring of the calcaneus. Degenerative changes most significant on the anterior tibiotalar joint. Mild sclerosis along the lateral talar dome could represent projection of degenerative anterior osteophytes. SOFT TISSUES: Negative. No visible soft tissue swelling. OTHER: Negative. LEFT FINDINGS: BONES: No acute fracture or dislocation. No focal lytic or sclerotic changes. Mild enthesopathic spurring of the calcaneus. Degenerative changes most significant on the anterior tibiotalar joint SOFT TISSUES: Negative. No visible soft tissue swelling. OTHER: Negative. IMPRESSION: RIGHT CONCLUSION: Mild degenerative changes LEFT CONCLUSION: Mild degenerative changes Electronically authenticated by: MERT BAH Date: 2021-08-29 13:51 Normal [facility] MRI ANKLE LT WO CONon 2021 MRI ANKLE LT WO CON EXAM: MRI ANKLE LT W O CON REASON FOR EXAM: Sprain of distal tibiofibular ligament. TECHNIQUE: Multiplanar, multisequence imaging of the left ankle was performed without contrast COMPARISON: Plain radiograph 08/03/2021. FINDINGS: Study mildly degraded by motion. The Achilles tendon demonstrates fusiform thickening and intermediate signal with distal Achilles enthesophytes consistent with tendinosis. No discrete tear identified. The plantar fascia is normal thickness and signal without evidence of tear. Laterally, the peroneal tendons demonstrate thickening and intermediate signal consistent with tendinosis. There may be short segment longitudinal split tearing involving the peroneus brevis tendon at the inframalleolar level (series 9, images 19 height and 21). The superficial peroneal retinaculum is intact. No discernible intact fibers of the anterior talofibular ligament are identified suggesting high-grade anterior talofibular ligament sprain. There is poor visualization of the calcaneal attachment of the calcaneal fibular ligament suggesting high-grade sprain of the calcaneofibular ligament. The syndesmotic and posterior talofibular ligaments appear intact. Medially, the medial flexor tendons demonstrate normal thickness and signal without tendinosis or tear. The deep deltoid ligament appears intact. The spring ligament is intact. The Lisfranc ligament is partially imaged and intact. Anteriorly, the anterior extensor tendons demonstrate normal thickness and signal without tendinosis or tear. The bone marrow signal is without acute fracture or osteonecrosis. There may be bone contusion involving the medial malleolus without discrete fracture. There may also be bone contusion involving the posterior talus. The talar dome is congruent. No high-grade chondrosis identified. The subtalar joints congruent. There is a moderate tibiotalar effusion, likely reactive. The sinus tarsi is mildly edematous. Midfoot appears congruent. The plantar musculature demonstrates normal bulk and signal. There is likely reactive extensive subcutaneous edema about the ankle, most notably laterally. IMPRESSION: 1. Study degraded by motion. 2. High-grade sprain/tear involving the anterior talofibular and calcaneofibular ligaments. 3. Peroneal tendinosis with short segment longitudinal split tearing of the inframalleolar peroneus brevis tendon. 4. Achilles tendinosis without tear. 5. Bone contusion involving the medial malleolus. No discrete fracture identified. 6. Likely posttraumatic subcutaneous edema about the lower extremity. Electronically authenticated by: ROSEMARY ENG Date: 2021-08-17 12:14 Normal [facility] GLYCOHEMOGLOBIN A1Con 2021 ADA RECOMMENDATION ADA THERAPEUTIC TARG ET 6.0 - 7.0 ACTION SUGGESTED > 7.0 Normal [facility] Comment on above: Performed By: #### C VDTBH #### [facility] [address] [address] [address] Sheela Zhang Glucose [Mass/Vol] 186 mg/dL Normal [facility] Comment on above: Performed By: #### C VDTBH #### [facility] [address] [place], [place] [address] Dr. Sheela Zhang HbA1c (Bld) [Mass fraction] 8.1 % Critically high <=6.0 [facility] Comment on above: Performed By: #### C VDTBH #### [facility] [address] [place], [place] [address] Dr. Sheela Zhang XR LSPINE 2_3 VIEWSon 2021 XR LSPINE 2_3 VIEWS EXAMINATION: XR LSPI NE 2_3 VIEWS HISTORY: Low back pain , acute COMPARISON: No relevant comparison available. FINDINGS: BONES: No significant spondylosis, scoliosis, fracture, or visible bony lesion. DISC SPACES: No significant disc height narrowing, subluxation, or endplate abnormality. PARASPINOUS: Negative. No paraspinous abnormality is seen. OTHER: Negative. IMPRESSION: 1. No acute bone abnormality or significant degenerative changes. Electronically authenticated by: MADDI BENTLEY Date: 2021-08-08 17:25 Normal [facility] Social History Date Type Detail Facility Start: 04-20-2023 Tobacco smoking status NHIS Never sm oked tobacco [facility] Start: 04-20-2023 Tobacco use and exposure Smoke less tobacco non-user [facility] Start: 04-20-2023 Alcohol intake Lifetime non-d aretha (finding) [facility] Start: 04-16-2023 End: 04-20-2023 [facility] Start: 04-16-2023 End: 04-20-2023 Humiliation, Afraid, Rape, and Kick questionnaire [HARK] [facility] Start: 1970 Sex Assigned At Not on file [facility] Within the last year , have you been afraid of your partner or ex-partner? Patient refused [facility] Are you now , , , , never or living with a partner? Refused [facility] (I/We) worried wheth er (my/our) food would run out before (I/we) got money to buy more. DK or Refused [facility] Clinical Note 08-08-2021 Note Date & Type Note Facility 08-08-2021 Note PROCEDURE: XR KNEE R T 3V HISTORY: Pain of right knee joint COMPARISON: None. FINDINGS: BONES:No fracture, acute abnormality, or significant arthropathy. SOFT TISSUES:No visible soft tissue swelling. EFFUSION:None visible. OTHER: Negative. IMPRESSION: 1. No acute bone abnormality or significant degenerative changes. Electronically authenticated by: MADDI BENTLEY Date: 2021-08-08 17:55 [facility] Clinical Note 08-08-2021 Note Date & Type Note Facility 08-08-2021 Note PROCEDURE: XR ANKLE RT MIN 3 VIEWS, XR TIB_FIB RT 2V HISTORY: Sprain of distal tibiofibular ligament COMPARISON: XR knee right 06/07/2021 FINDINGS: BONES:Small degenerative osteophytes along the anterior articular margin of the tibial plafond and talar dome. No fracture, dislocation, bone lesion. SOFT TISSUES:No visible soft tissue swelling. EFFUSION:None visible. OTHER: Negative. IMPRESSION: 1. No acute bone abnormality. 2. Mild degenerative changes of the ankle joint. Electronically authenticated by: MADDI BENTLEY Date: 2021-08-08 17:26 [facility] Clinical Note 08-08-2021 Note Date & Type Note Facility 08-08-2021 Note PROCEDURE: XR ANKLE RT MIN 3 VIEWS, XR TIB_FIB RT 2V HISTORY: Sprain of distal tibiofibular ligament COMPARISON: XR knee right 06/07/2021 FINDINGS: BONES:Small degenerative osteophytes along the anterior articular margin of the tibial plafond and talar dome. No fracture, dislocation, bone lesion. SOFT TISSUES:No visible soft tissue swelling. EFFUSION:None visible. OTHER: Negative. IMPRESSION: 1. No acute bone abnormality. 2. Mild degenerative changes of the ankle joint. Electronically authenticated by: MADDI BENTLEY Date: 2021-08-08 17:26 [facility] Evaluation note Note Date & Type Note Facility Evaluation note Diagnosis Primary osteoarthritis of ankles, bilateral documented in this encounter [facility] [facility] Evaluation note Note Date & Type Note Facility Evaluation note Diagnosis Other specified abnormal findings of blood chemistry documented in this encounter [facility] Evaluation note Note Date & Type Note Facility Evaluation note Diagnosis Chronic migraine without aura, not intractable, without status migrainosus (CMS/HCC) Chronic migraine without aura (CMS/HCC) Chronic migraine without aura, without mention of intractable migraine without mention of status migrainosus documented in this encounter [facility] Summary Purpose Family History No Family History Records FoundNo Family History Records FoundNo Family History Records Found Advance Directives No Advanced Directives Records FoundNo Advanced Directives Records FoundNo Advanced Directives Records Found Additional Source Comments (unrecognized sect ion and content) No Status Records FoundNo Status Records FoundNo Status Records Found INFORMATION SOURCE (unrecogn ized section and content) DATE CREATED AUTHOR 11/10/2017 [facility] DATE CREATED AUTHOR AUTHOR'S ORGANIZ ATION 08/08/2022 [facility] DATE CREATED AUTHOR AUTHOR'S ORGANIZ ATION 11/09/2023 [facility] EPIC Reason for Visit (unrecogniz ed section and content) Reason Onset Date Comments Med Refill 06/23/2023 Reason Comments Med Refill Care Teams (unrecognized sec tion and content) Software Developer Manager Relationship Specialty Start Date End Date Blayne Love MD PCP - General Family Medicine 05/18/22 Software Developer Manager Relationship Specialty Start Date End Date Blayne Love MD PCP - General Family Medicine 05/18/22 FOR RECORDS PERTAINING TO PATIENTS WHO ARE OR HAVE BEEN ENROLLED IN A CHEMICAL DEPENDENCY/SUBSTANCEABUSE PROGRAM, SOME INFORMATION MAY BE OMITTED. This clinical summary was aggregated from multiple sources. Caution should be exercised in using it in the provision of clinical care. This summary normalizes information from multiple sources, and as a consequence, information in this document may materially change the coding, format and clinical context of patient data. In addition, data may be omitted in some cases. CLINICAL DECISIONS SHOULD BE BASED ON THE PRIMARY CLINICAL RECORDS. [employer] provides no warranty or guarantee of the accuracy or completeness of information in this document.
[2023-11-13 16:19] LABS: Basophils Absolute Auto 0.1 10^3/uL (0.0-0.1); Basophils Percent Auto 0.8 % (0.2-2.0); Eosinophils Absolute Auto 0.2 10^3/uL (0.0-0.7); Eosinophils Percent Auto 1.3 % (0.9-7.0); Hematocrit 52.6 % (42.0-54.0); Immature Granulocytes Abs Auto 0.08 10^3/uL (0.00-0.03); Immature Granulocytes Pct Auto 0.6 % (0.0-0.5); Lymphocytes Absolute Auto 3.7 10^3/uL (1.2-3.8); Lymphocytes Percent Auto 29.2 % (20.5-60.0); Mean Corpuscular HGB Conc 34.2 g/dL (29.9-35.2); Mean Corpuscular Hemoglobin 30.9 pg (25.9-34.0); Mean Corpuscular Volume 90.2 fL (80.0-94.0); Mean Platelet Volume 9.4 fL (9.5-13.5); Monocytes Absolute Auto 1.2 10^3/uL (0.3-0.8); Monocytes Percent Auto 9.4 % (1.7-12.0); Neutrophils Absolute Auto 7.5 10^3/uL (1.4-6.5); Neutrophils Percent Auto 58.7 % (43.0-75.0); Platelet Count 287 10^3/uL (150-450); Red Blood Count 5.83 10^6/uL (4.70-6.10); Red Cell Distribution Width 13.2 % (11.0-15.0); White Blood Count 12.8 10^3/uL (4.0-11.0)
[2023-11-13 16:27] LABS: Estimated Average Glucose 100 mg/dL; Glycohemoglobin A1C 5.1 % (4.5-6.2)
[2023-11-13 16:28] LABS: Microalbumin Urine Random 8.8 mg/dL (<=30.0)
[2023-11-13 17:16] LABS: Alanine Aminotransferase 56 U/L (16-63); Albumin Globulin Ratio 1.3; Albumin Level 4.9 g/dL (3.4-5.0); Alkaline Phosphatase 101 U/L (46-116); Anion Gap 15.3; Aspartate Amino Transferase 26 U/L (15-37); BUN Creatinine Ratio 16.8; Bilirubin Direct 0.1 mg/dL (0.0-0.2); Bilirubin Total 0.4 mg/dL (0.2-1.0); Carbon Dioxide 28.9 mmol/L (21.0-32.0); Chloride 101 mmol/L (98-107); Chol HDL Ratio 3.7; Cholesterol 170 mg/dL (<=200); Estimated GFR (African America >60 (>=60); Estimated GFR (Non-African Ame 57 (>=60); Globulin 3.8 g/dL; Glucose 93 mg/dL (74-106); HDL Cholesterol 46 mg/dL (40-60); Potassium 3.2 mmol/L (3.5-5.1); Sodium 142 mmol/L (136-145); Thyroid Stimulating Hormone 1.909 uIU/mL (0.358-3.740); Total Protein 8.7 g/dL (6.4-8.2); Triglycerides 247 mg/dL (<=150); VLDL CHOLESTEROL 49.4 mg/dL
[2023-11-15 07:12] LABS: Testosterone 1460 ng/dL (264-916)
== END 2023-11-13 16:02 | disposition home or self-care (01) ==
LOC: LAB 16:02
PROVIDERS: PCP Family Medicine; Visit Provider Family Medicine
DX: E78.5 Hyperlipidemia, unspecified (principal); E11.65 Type 2 diabetes mellitus with hyperglycemia; Z79.899 Other long term (current) drug therapy; E66.01 Morbid (severe) obesity due to excess calories; Z12.5 Encounter for screening for malignant neoplasm of prostate
CPT/HCPCS: 36415; 80048; 80061; 80076; 82043; 83036; 84153; 84403; 84443; 85025

== ENCOUNTER 2024-02-15 10:35 | Outpatient (OUT) | payer OTHER, SELFPAY ==
--- OUTSIDE RECORDS SUMMARY | 2024-02-15 10:40 | XMS_ITS | CCD ---
Author Organization [facility]ini[facility] Care Team Providers Care Teletypesetter Name Role Phone PHYSICIAN, DEFAULT Unavailable Unavailable PHYSICIAN, DEFAULT Unavailable Unavailable PHYSICIAN, DEFAULT Unavailable Unavailable PHYSICIAN, DEFAULT Unavailable Unavailable NADERESylwia, DR BLAYNE Dominguez Attending Unavailable NADERER, DR BLAYNE Dominguez Primary Care Unavailable NADERER, DR BLAYNE Dominguez Admitting Unavailable NADERER, DR BLAYNE Dominguez Attending Unavailable NADERER, DR BLAYNE Dominguez Primary Care Unavailable NADERER, DR BLAYNE Dominguez Admitting Unavailable REINECK, DR BARRERA Bautista Consulting Unavailabl e MC, DR MADDI Dao Consulting Unavailable NADERER, DR BLAYNE Dominguez Consulting Unavailable GRECHNY ., OCTAVIANO STONE Consulting Unavailabl e TROTTI, GIROLAMO Consulting Unavailable SISTER, MAC Consulting Unavailable DIAB [...] Unavailable NADERER, DR BLAYNE Dominguez Consulting Unavailable IVAN, DR BLAYNE Dominguez Attending Unavailable IVAN, DR BLAYNE Dominguez Primary Care Unavailable IVAN, DR BLAYNE Dominguez Admitting Unavailable ROSEMARY ENG Consulting Unavailable IVAN, DR BLAYNE Dominguez Attending Unavailable NADZAN, DR BLAYNE Dominguez Admitting Unavailable IVAN, DR BLAYNE Dominguez Primary Care Unavailable IVAN, DR BLAYNE Dominguez Primary Care Unavailable HAY ., DR SIMON Attending Unavailable HAY ., DR SIMON Admitting Unavailable HAY ., DR SIMON Consulting Unavailable IVAN, DR BLAYNE Dominguez Primary Care Unavailable YOBANI ACOSTA Admitting Unavailable DAVE, YOBANI Diego Attending Unavailable GRECHCLEMENTE ., OCTAVIANO STONE Consulting Unavailsonia BENTON, JOHN Consulting Unavailable Blayne Love MD Primary Care Provider IVAN, BLAYNE Attending Unavailable IVAN, BLAYNE Attending Unavailable IVAN, BLAYNE Attending Unavailable IVAN, BLAYNE Attending Unavailable Medications Current Medications Medication Drug Class(es) Dates [...] by mouth every four hours as needed hlwsokfecm-nutudxexblcjx-iwifylhz 50-325 -40 MG tablet Indications: Chronic migraine [...] in the morning. 0 Active BD Disp [place] 21G X 1-1/2 misc (3 sources) Start: 06-24-2022 BD Disp [place] 21G X 1-1/2 misc USE DIRECTED TWICE [...] with meals. 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; Translations: [SHELTER USE ORAL HYPOGLYCEMIC DX] Onset: 07-07-2022 Episodic Other aftercare (1 source) Other exterminator helper (current) drug therapy; Translations: [OTH SHELTER CURRENT DRUG THERAPY] Onset: 07-07-2022 Episodic Other [...] PAIN, UNSPECIFIED] Onset: 08-01-2022 Unclassified (1 source) SHELTER INJECT NONINSULN ANTIDIAB; Translations: [SHELTER INJECT NONINSULN ANTIDIAB] Onset: 07-07-2022 Unclassified (1 [...] Translations: [LOW BACK PAIN, UNSPECIFIED] Onset: 08-01-2022 Results Test Name Value Interpretation Reference Range Facility CBC AUTO DIFFon 07-03-2022 BASO # 0.0 103/ul Normal 0.0-0.1 [facility] Comment on above: Performed By: #### C VDTBH #### [facility] [address] [place] [address] Dr. Sheela Zhang Basophils/100 WBC (Bld) 0.2 % Normal 0.2-2.0 [facility] Comment on above: Performed By: #### C VDTBH #### [facility] [address] [place] [address] Dr. Sheela Zhang EO # 0.0 103/ul Normal 0.0-0.7 [facility] Comment on above: Performed By: #### C VDTBH #### [facility] [address] [place] [address] Dr. Sheela Zhang Eosinophils/100 WBC (Bld) 0.0 % Critically low 0.9-7.0 [facility] Comment on above: Performed By: #### C VDTBH #### [facility] [address] [place] [address] Dr. Sheela Zhang Erythrocyte distribution width (RBC) [Ratio] 13.3 % Normal 11.0-15.0 [facility] Comment on above: Performed By: #### C VDTBH #### [facility] [address] [place] [address] Dr. Sheela Zhang Hematocrit (Bld) [Volume fraction] 45.2 % Normal 42.0-54.0 [facility] Comment on above: Performed By: #### C VDTBH #### [facility] [address] [place] [address] Dr. Sheela Zhang Hemoglobin (Bld) [Mass/Vol] 15.4 g/dL Normal 14.0-18.0 [facility] Comment on above: Performed By: #### C VDTBH #### [facility] [address] [address] [address] Sheela Zhang IG # 0.04 10e3/ul Critically high 0.00-0.03 [facility] Comment on above: Performed By: #### C VDTBH #### [facility] [address] [address] [address] Sheela Zhang IG % 0.3 % Normal 0.0-0.5 [facility] Comment on above: Performed By: #### C VDTBH #### [facility] [address] [place] [address] Dr. Sheela Zhang LYMPH # 2.2 103/ul Normal 1.2-3.8 [facility] Comment on above: Performed By: #### C VDTBH #### [facility] [address] [place] [address] Dr. Sheela Zhang Lymphocytes/100 WBC (Bld) 17.4 % Critically low 20.5-60.0 [facility] Comment on above: Performed By: #### C VDTBH #### [facility] [address] [place] [address] Dr. Sheela Zhang MANUAL DIFF REQ NO Normal [facility] Comment on above: Performed By: #### C VDTBH #### [facility] [address] [address] [address] Sheela Zhang MCH (RBC) [Entitic mass] 29.2 pg Normal 25.9-34.0 [facility] Comment on above: Performed By: #### C VDTBH #### [facility] [address] [place] [address] Dr. Sheela Zhang MCHC (RBC) [Mass/Vol] 34.1 g/dL Normal 29.9-35.2 [facility] Comment on above: Performed By: #### C VDTBH #### [facility] [address] [address] [address] Sheela Zhang MCV (RBC) [Entitic vol] 85.6 fL Normal 80.0-94.0 [facility] Comment on above: Performed By: #### C VDTBH #### [facility] [address] [place] [address] Dr. Sheela Zhang MONO # 0.8 103/ul Normal 0.3-0.8 [facility] Comment on above: Performed By: #### C VDTBH #### [facility] [address] [place] [address] Dr. Sheela Zhang Monocytes/100 WBC (Bld) 6.1 % Normal 1.7-12.0 [facility] Comment on above: Performed By: #### C VDTBH #### [facility] [address] [place] [address] Dr. Sheela Zhang NEUT # 9.5 103/ul Critically high 1.4-6.5 [facility] Comment on above: Performed By: #### C VDTBH #### [facility] [address] [place] [address] Dr. Sheela Zhang Neutrophils/100 WBC (Bld) 76.0 % Critically high 43.0-75.0 [facility] Comment on above: Performed By: #### C VDTBH #### [facility] [address] [place] [address] Dr. Sheela Zhang Platelet mean volume (Bld) [Entitic vol] 9.7 fL Normal 9.5-13.5 [facility] Comment on above: Performed By: #### C VDTBH #### [facility] [address] [place] [address] Dr. Sheela Zhang PLT 273 103/ul Normal 150-450 [facility] Comment on above: Performed By: #### C VDTBH #### [facility] [address] [place] [address] Dr. Sheela Zhang RBC 5.28 106/ul Normal 4.70-6.10 [facility] Comment on above: Performed By: #### C VDTBH #### [facility] [address] [place], [place] [address] Dr. Sheela Zhang WBC 12.4 103/ul Critically high 4.0-11.0 [facility] Comment on above: Performed By: #### [facility] #### [facility] [address] [place], [place] [address] CHEST WO CONon [...] MADDI BENTLEY Date: 2022-07-03 08:23 Normal [facility] Covid-19 PCR ([facility])on 06-18 SARS-CoV-2 (COVID-19) RNA KOREY+probe Ql (Unsp spec) Detected Abnormal NOT DETECTED [facility] Comment on above: Result Comment: This test is not yet approved or cleared by the [place] FDA. When there are no FDA-approved or cleared tests available, and other criteria are met, FDA can make tests available under an emergency access mechanism called an Emergency Use Authorization (EUA). The EUA for this test is supported by the [employer] Supervisor of Health and Human Service's declaration that [...] used). Performed By: #### C VDTBH #### [facility] [address] [address] [address] Sheela Zhang POINT OF CARE GLUCOSEon 06-18 Glucose [Mass/Vol] 268 mg/dL Critically high -106 [facility] Comment on above: Performed By: #### C VDTBH #### [facility] [address] [address] [address] Sheela Zhang Glucose [Mass/Vol] 258 mg/dL Critically high -106 [facility] Comment on above: Performed By: #### P OCGLUC ####[facility] [address] [address]. Sheela Zhang Glucose [Mass/Vol] 336 mg/dL Critically high [facility]106 [facility] Comment on above: Performed By: #### P OCGLUC #### [facility] [address] [address] [address] Sheela Zhang Glucose [Mass/Vol] 403 mg/dL Critically high [address] [place] [address] Comment on above: Performed By: #### C VDTBH #### [facility] [address] [address] [address] Sheela Zhang Glucose [Mass/Vol] 458 mg/dL Critically high [address] [place] [address] Comment on above: Performed By: #### P OCGLUC ####[facility] [address] [address]Dr. Sheela Zhang PROF 14(COMP METB)on 023 Albumin [Mass/Vol] 4.0 g/dL Normal 3.4-5.0 [facility] Comment on above: Performed By: #### C VDTBH #### [facility] [address] [address] [address] Sheela Zhang Albumin/Globulin [Mass ratio] 1.1 {ratio} Normal [facility] Comment on above: Performed By: #### C VDTBH #### [facility] [address] [address] [address] Sheela Zhang ALP [Catalytic activity/Vol] 105 U/L Normal 46-116 [facility] Comment on above: Performed By: #### C VDTBH #### [facility] [address] [place] [address] Dr. Sheela Zhang ALT [Catalytic activity/Vol] 34 U/L Normal 16-63 [facility] Comment on above: Performed By: #### C VDTBH #### [facility] [address] [place] [address] Dr. Sheela Zhang Anion gap [Moles/Vol] 13.4 mmol/L Normal [facility] Comment on above: Performed By: #### C VDTBH #### [facility] [address] [place] [address] Dr. Sheela Zhang AST [Catalytic activity/Vol] 20 U/L Normal 15-37 [facility] Comment on above: Performed By: #### C VDTBH #### [facility] [address] [place] [address] Dr. Sheela Zhang Bilirubin [Mass/Vol] 0.3 mg/dL Normal 0.2-1.0 [facility] Comment on above: Performed By: #### C VDTBH #### [facility] [address] [place] [address] Dr. Sheela Zhang Calcium [Mass/Vol] 9.0 mg/dL Normal 8.5-10.1 [facility] Comment on above: Performed By: #### C VDTBH #### [facility] [address] [place] [address] Dr. Sheela Zhang Chloride [Moles/Vol] 97 mmol/L Critically low 98-107 [facility] Comment on above: Performed By: #### C VDTBH #### [facility] [address] [place] [address] Dr. Sheela Zhang CO2 [Moles/Vol] 28.2 mmol/L Normal 21.0-32.0 [facility] Comment on above: Performed By: #### C VDTBH #### [facility] [address] [place] [address] Dr. Sheela Zhang Creatinine [Mass/Vol] 1.15 mg/dL Normal 0.70-1.30 [facility] Comment on above: Performed By: #### C VDTBH #### [facility] [address] [address] [address] Sheela Zhang EGFR-AF SCOTTISH >60 Normal >=60 [facility] Comment on above: Performed By: #### C VDTBH #### [facility] [address] [place] [address] Dr. Sheela Zhang EGFR-NON AF SCOTTISH >60 Normal >=60 [facility] Comment on above: Performed By: #### C VDTBH #### [facility] [address] [place] [address] Dr. Sheela Zhang Globulin (S) [Mass/Vol] 3.5 g/dL Normal [facility] Comment on above: Performed By: #### C VDTBH #### [facility] [address] [place] [address] Dr. Sheela Zhang Glucose [Mass/Vol] 311 mg/dL Critically high 74-106 [facility] Comment on above: Performed By: #### C VDTBH #### [facility] [address] [place] [address] Dr. Sheela Zhang Potassium [Moles/Vol] 3.6 mmol/L Normal 3.5-5.1 [facility] Comment on above: Performed By: #### C VDTBH #### [facility] [address] [place] [address] Dr. Sheela Zhang Protein [Mass/Vol] 7.5 g/dL Normal 6.4-8.2 [facility] Comment on above: Performed By: #### C VDTBH #### [facility] [address] [place] [address] Dr. Sheela Zhang Sodium [Moles/Vol] 135 mmol/L Critically low 136-145 [facility] Comment on above: Performed By: #### C VDTBH #### [facility] [address] [place] [address] Dr. Sheela Zhang Urea nitrogen [Mass/Vol] 18.0 mg/dL Normal 7.0-18.0 [facility] Comment on above: Performed By: #### C VDTBH #### [facility] [address] [place] [address] Dr. Sheela Zhang Urea nitrogen/Creatinine [Mass ratio] 15.7 mg/mg Normal [facility] Comment on above: Performed By: #### C VDTBH #### [facility] [address] [place] [address] Dr. Sheela Zhang SED RATE WESTERGRENon 2022 SED RATE 32 mm/hr Critically high <=20 [facility] Comment on above: Performed By: #### P SASC #### [facility] [address] [place] [address] Dr. Sheela Zhang ACETONE SERUMon 07-02-2022 ACETONE Negative Normal NEGATIVE [facility] Comment on above: Performed By: #### C VDTBH #### [facility] [address] [place] [address] Dr. Sheela Zhang CBC AUTO DIFFon 07-02-2022 BASO # 0.0 103/ul Normal 0.0-0.1 [facility] Comment on above: Performed By: #### C BC #### [facility] [address] [place] [address] Dr. Sheela Zhang Basophils/100 WBC (Bld) 0.1 % Critically low 0.2-2.0 [facility] Comment on above: Performed By: #### C BC #### [facility] [address] [place] [address] Dr. Sheela Zhang EO # 0.0 103/ul Normal 0.0-0.7 [facility] Comment on above: Performed By: #### C BC #### [facility] [address] [place] [address] Dr. Sheela Zhang Eosinophils/100 WBC (Bld) 0.2 % Critically low 0.9-7.0 [facility] Comment on above: Performed By: #### C BC #### [facility] [address] [place] [address] Dr. Sheela Zhang Erythrocyte distribution width (RBC) [Ratio] 13.2 % Normal 11.0-15.0 [facility] Comment on above: Performed By: #### C BC #### [facility] [address] [place] [address] Dr. Sheela Zhang Hematocrit (Bld) [Volume fraction] 46.6 % Normal 42.0-54.0 [facility] Comment on above: Performed By: #### C BC #### [facility] [address] [place] [address] Dr. Sheela Zhang Hemoglobin (Bld) [Mass/Vol] 16.0 g/dL Normal 14.0-18.0 [facility] Comment on above: Performed By: #### C BC #### [facility] [address] [place] [address] Dr. Sheela Zhang IG # 0.04 10e3/ul Critically high 0.00-0.03 [facility] Comment on above: Performed By: #### C BC #### [facility] [address] [place] [address] Dr. Sheela Zhang IG % 0.4 % Normal 0.0-0.5 [facility] Comment on above: Performed By: #### C BC #### [facility] [address] [place] [address] Dr. Sheela Zhang LYMPH # 1.4 103/ul Normal 1.2-3.8 [facility] Comment on above: Performed By: #### C BC #### [facility] [address] [place] [address] Dr. Sheela Zhang Lymphocytes/100 WBC (Bld) 15.8 % Critically low 20.5-60.0 [facility] Comment on above: Performed By: #### C BC #### [facility] [address] [place] [address] Dr. Sheela Zhang MANUAL DIFF REQ NO Normal [facility] Comment on above: Performed By: #### C BC #### [facility] [address] [place] [address] Dr. Sheela Zhang MCH (RBC) [Entitic mass] 29.5 pg Normal 25.9-34.0 [facility] Comment on above: Performed By: #### C BC #### [facility] [address] [address] [address] Sheela Zhang MCHC (RBC) [Mass/Vol] 34.3 g/dL Normal 29.9-35.2 [facility] Comment on above: Performed By: #### C BC #### [facility] [address] [address] [address] Sheela Zhang MCV (RBC) [Entitic vol] 86.0 fL Normal 80.0-94.0 [facility] Comment on above: Performed By: #### C BC #### [facility] [address] [place] [address] Dr. Sheela Zhang MONO # 0.4 103/ul Normal 0.3-0.8 [facility] Comment on above: Performed By: #### C BC #### [facility] [address] [place] [address] Dr. Sheela Zhang Monocytes/100 WBC (Bld) 4.6 % Normal 1.7-12.0 [facility] Comment on above: Performed By: #### C BC #### [facility] [address] [place] [address] Dr. Sheela Zhang NEUT # 7.1 103/ul Critically high 1.4-6.5 [facility] Comment on above: Performed By: #### C BC #### [facility] [address] [place] [address] Dr. Sheela Zhang Neutrophils/100 WBC (Bld) 78.9 % Critically high 43.0-75.0 [facility] Comment on above: Performed By: #### C BC #### [facility] [address] [place] [address] Dr. Sheela Zhang Platelet mean volume (Bld) [Entitic vol] 10.1 fL Normal 9.5-13.5 [facility] Comment on above: Performed By: #### C BC #### [facility] [address] [address] [address] Sheela Zhang PLT 269 103/ul Normal 150-450 [facility] Comment on above: Performed By: #### C BC #### [facility] [address] [place] [address] Dr. Sheela Zhang RBC 5.42 106/ul Normal 4.70-6.10 [facility] Comment on above: Performed By: #### C BC #### [facility] [address] [address] [address] Sheela Zhang WBC 8.9 103/ul Normal 4.0-11.0 [facility] Comment on above: Performed By: #### C BC #### [facility] [address] [place] [address] Dr. Sheela Zhang ER URINE PROFILEon 3 Bilirubin Ql (U) Negative Normal NEGATIVE [facility] Comment on above: Performed By: #### E RUR ####[facility] [address] [place], [place] [address]Dr. Sheela Zhang Clarity (U) CLEAR Normal CLEAR [facility] Comment on above: Performed By: #### E RUR ####[facility] [address] [place], [place] [address]Dr. Sheela Zhang Color (U) LT. YELLOW Normal YELLOW [facility] Comment on above: Performed By: #### E RUR ####[facility] [address] [place], [place] [address]DrDayanara Zhang ERUAHD A micrscopic examination will be performed if indicated. Normal [facility] Comment on above: Performed By: #### E RUR ####[facility] [address] [address]Dr. Sheela Zhang Glucose Ql (U) >1000 Abnormal NEGATIVE [facility] Comment on above: Performed By: #### E RUR ####[facility] [address] [address]Dr. Sheela Zhang Hemoglobin Ql (U) Negative Normal NEGATIVE [facility] Comment on above: Performed By: #### E RUR ####[facility] [address] [address]Dr. Sheela Zhang Ketones Ql (U) Negative Normal NEGATIVE [facility] Comment on above: Performed By: #### E RUR ####[facility] [address] [place], [place] [address]Dr. Sheela Zhang LEUKOCYTES Negative Normal NEGATIVE [facility] Comment on above: Performed By: #### E RUR ####[facility] [address] [place], [place] [address]Dr. Sheela Zhang Nitrite Ql (U) Negative Normal NEGATIVE [facility] Comment on above: Performed By: #### E RUR ####[facility] [address] [place], [place] [address]Dr. Sheela Zhang pH (U) 5.5 [pH] Normal 5-9 [facility] Comment on above: Performed By: #### E RUR ####[facility] [address] [place], [place] [address]Dr. Sheela Zhang SPEC GRAVITY <=1.005 Abnormal 1.005-<=1.025 [facility] Comment on above: Performed By: #### E RUR ####[facility] [address] [place], [place] [address]Dr. Sheela Zhang UA PROTEIN Negative Normal NEGATIVE/ TRACE [facility] Comment on above: Performed By: #### E RUR ####[facility] [address] [place], [place] [address]Dr. Sheela Zhang UR MICRO IND NOT INDICATED Normal [facility] Comment on above: Performed By: #### E RUR ####[facility] [address] [place], [place] [address]Dr. Sheela Zhang Urobilinogen Qn (U) 0.2 {Emanuel'U}/dL Normal 0.2 - 1. 0 [facility] Comment on above: Performed By: #### E RUR ####[facility] [address]ws[address] [place], [place] [address]Dr. Sheela Zhang LACTATE/LACTIC ACIDon 2022 Lactate [Moles/Vol] 3.7 mmol/L Critically high 0.4-1.9 [facility] Comment on above: Performed By: #### L ACT ####[facility] [address] [place] [address]DrDayanara Zhang Lactate [Moles/Vol] 4.5 mmol/L Critically high 0.4-1.9 [facility] Comment on above: Performed By: #### L ACT #### [facility] [address] [address] [address] Sheela Zhang LIPASEon 07-02-2022 Lipase [Catalytic activity/Vol] 95.0 U/L Normal 73.0-393.0 [facility] Comment on above: Performed By: #### C MP, HSTROPN, LIPA ####[facility] Aim[address]elb[address] [place], [place] [address]DrDayanara Zhang PH VENOUS BLOODon 07-02-2022 PCO2 VENOUS 34.4 mmHg Critically low 40.0-52.0 [facility] Comment on above: Performed By: #### P HVEN ####[facility] [address] [place], [place] [address]DrDayanara Zhang pH VENOUS 7.387 Normal 7.330-7.430 [facility] Comment on above: Performed By: #### P HVEN ####[facility] [address] [place], [place] [address]Dr. Sheela Zhang POINT OF CARE GLUCOSEon 06-18 Glucose [Mass/Vol] 518 mg/dL Critically high 74-106 [facility] Comment on above: Result Comment: Prev iously Confirmed Performed By: #### P OCGLUC ####[facility] [address] [address]DrDayanara Zhang POCGLUC >600 Critically high 74-106 [facility] Comment on above: Result Comment: Prev iously Confirmed Performed By: #### C VDTBH #### [facility] [address] [place] [address] Dr. Sheela Zhang POCGLUC >600 Critically high 74-106 [facility] Comment on above: Result Comment: Prev iously Confirmed Performed By: #### P OCGLUC ####[facility] [address] [address]Dr. Sheela Zhang PROF 14(COMP METB)on 023 Albumin [Mass/Vol] 4.0 g/dL Normal 3.4-5.0 [facility] Comment on above: Performed By: #### C MP, HSTROPN, LIPA ####[facility] [address] [address]Dr. Sheela Zhang Albumin/Globulin [Mass ratio] 1.1 {ratio} Normal [facility] Comment on above: Performed By: #### C MP, HSTROPN, LIPA ####[facility] [address] [place], [place] [address]Dr. Sheela Zhang ALP [Catalytic activity/Vol] 114 U/L Normal 46-116 [facility] Comment on above: Performed By: #### C MP, HSTROPN, LIPA ####[facility] Srkbcmay[address] [place], [place] [address]Dr. Sheela Zhang ALT [Catalytic activity/Vol] 36 U/L Normal 16-63 [facility] Comment on above: Performed By: #### C MP, HSTROPN, LIPA ####[facility] [address] [place], [place] [address]Dr. Sheela Zhang Anion gap [Moles/Vol] 18.1 mmol/L Normal [facility] Comment on above: Performed By: #### C MP, HSTROPN, LIPA ####[facility] [address] [place], [place] [address]Dr. Sheela Zhang AST [Catalytic activity/Vol] 15 U/L Normal 15-37 [facility] Comment on above: Performed By: #### C MP, HSTROPN, LIPA ####[facility] [address] [place], [place] [address]Dr. Sheela Zhang Bilirubin [Mass/Vol] 0.4 mg/dL Normal 0.2-1.0 [facility] Comment on above: Performed By: #### C MP, HSTROPN, LIPA ####[facility] [address] [address]Dr. Sheela Zhang Calcium [Mass/Vol] 9.1 mg/dL Normal 8.5-10.1 [facility] Comment on above: Performed By: #### C MP, HSTROPN, LIPA ####[facility] [address] [address]Dr. Sheela Zhang Chloride [Moles/Vol] 92 mmol/L Critically low 98-107 [facility] Comment on above: Performed By: #### C MP, HSTROPN, LIPA ####[facility] [address] [place] [address]Dr. Sheela Zhang CO2 [Moles/Vol] 23.7 mmol/L Normal 21.0-32.0 [facility] Comment on above: Performed By: #### C MP, HSTROPN, LIPA ####[facility] [address] [place], [place] [address]Dr. Sheela Zhang Creatinine [Mass/Vol] 1.53 mg/dL Critically high 0.70-1.30 [facility] Comment on above: Performed By: #### C MP, HSTROPN, LIPA ####[facility] Awftyrx[address] [place], [place] [address]Dr. Sheela Zhang EGFR-AF SCOTTISH 58 mL/min/1.73m2 Critically low >=60 [facility] Comment on above: Performed By: #### C MP, HSTROPN, LIPA ####[facility] [address] [place] [address]Dr. Sheela Zhang EGFR-NON AF SCOTTISH 48 mL/min/1.73m2 Critically low >=60 [facility] Comment on above: Performed By: #### C MP, HSTROPN, LIPA ####[facility] [address] [place], [place] [address]Dr. Sheela Zhang Globulin (S) [Mass/Vol] 3.7 g/dL Normal [facility] Comment on above: Performed By: #### C MP, HSTROPN, LIPA ####[facility] [address] [place] [address]Dr. Sheela Zhang Glucose [Mass/Vol] 669 mg/dL Critically high 74-106 [facility] Comment on above: Performed By: #### C MP, HSTROPN, LIPA ####[facility] [address] [place] [address]Dr. Sheela Zhang Potassium [Moles/Vol] 3.8 mmol/L Normal 3.5-5.1 [facility] Comment on above: Performed By: #### C MP, HSTROPN, LIPA ####[facility] [address] [place] [address]Dr. Sheela Zhang Protein [Mass/Vol] 7.7 g/dL Normal 6.4-8.2 [facility] Comment on above: Performed By: #### C MP, HSTROPN, LIPA ####[facility] [address] [place] [address]Dr. Sheela Zhang Sodium [Moles/Vol] 130 mmol/L Critically low 136-145 [facility] Comment on above: Performed By: #### C MP, HSTROPN, LIPA ####[facility] [address] [place] [address]Dr. Sheela Zhang Urea nitrogen [Mass/Vol] 24.0 mg/dL Critically high 7.0-18.0 [facility] Comment on above: Performed By: #### C MP, HSTROPN, LIPA ####[facility] [address] [place] [address]Dr. Sheela Zhang Urea nitrogen/Creatinine [Mass ratio] 15.7 mg/mg Normal [facility] Comment on above: Performed By: #### C MP, HSTROPN, LIPA ####[facility] [address] [place] [address]Dr. Sheela Zhang TROPONIN, HIGH SENSITIVITYon 07-02-2022 HSTROP 15.7 pg/mL Normal 4.0-76.1 [facility] Comment on above: Result Comment: CUT- OFF POINTS HAVE BEEN ESTABLISHED BASED ON THE FOURTH UNIVERSAL DEFINITIONS OF MYOCARDIAL INFARCTION. THE UPPER REFERENCE LIMIT (URL) OF TROPONIN, DEFINED THE 99TH PERCENTILE OF cTnI DISTRIBUTION IN A REFERENCE POPULATION, HAS BEEN CONFIRMED THE DECISION THRESHOLD FOR [place] DIAGNOSIS. Performed By: #### C VICENTE BURRIS LIPA ####[facility] [address] [place], [place] [address]QfDr. Sheela Zhang XR CHEST 1 Von 07-02-2022 [...] Amauri LOPEZ Date: 2022-07-02 19:37 Normal [facility] TESTOSTERONE, TOTALon 2022 Testosterone [Mass/Vol] 259 ng/dL Critically low 264-916 [facility] Comment on above: Result Comment: Adul t male reference interval is based on a population of healthy nonobese males (BMI <30) between 19 and 39 years old. [place], et.al. JCEM 2017,102;8078-2635. PMID: [id number]. Performed By: #### C VDTBH #### [facility] [address] [place], [place] [address] Dr. Sheela Zhang CBC AUTO DIFFon 06-24-2022 BASO # 0.1 103/ul Normal 0.0-0.1 [facility] Comment on above: Performed By: #### P SASC #### [facility] [address] [place], [place] [address] Dr. Sheela Zhang Basophils/100 WBC (Bld) 0.9 % Normal 0.2-2.0 [facility] Comment on above: Performed By: #### P SASC #### [facility] [address] [address] [address] Sheela Zhang EO # 0.3 103/ul Normal 0.0-0.7 [facility] Comment on above: Performed By: #### P SASC #### [facility] [address] [address] [address] Sheela Zhang Eosinophils/100 WBC (Bld) 2.4 % Normal 0.9-7.0 [facility] Comment on above: Performed By: #### P SASC #### [facility] [address] [place] [address] Dr. Sheela Zhang Erythrocyte distribution width (RBC) [Ratio] 13.7 % Normal 11.0-15.0 [facility] Comment on above: Performed By: #### P SASC #### [facility] [address] [place] [address] Dr. Sheela Zhang Hematocrit (Bld) [Volume fraction] 51.2 % Normal 42.0-54.0 [facility] Comment on above: Performed By: #### P SASC #### [facility] [address] [place] [address] Dr. Sheela Zhang Hemoglobin (Bld) [Mass/Vol] 16.6 g/dL Normal 14.0-18.0 [facility] Comment on above: Performed By: #### P SASC #### [facility] [address] [place] [address] Dr. Sheela Zhang IG # 0.06 10e3/ul Critically high 0.00-0.03 [facility] Comment on above: Performed By: #### P SASC #### [facility] [address] [place] [address] Dr. Sheela Zhang IG % 0.5 % Normal 0.0-0.5 [facility] Comment on above: Performed By: #### P SASC #### [facility] [address] [place] [address] Dr. Sheela Zhang LYMPH # 3.2 103/ul Normal 1.2-3.8 [facility] Comment on above: Performed By: #### P SASC #### [facility] [address] [place] [address] Dr. Sheela Zhang Lymphocytes/100 WBC (Bld) 28.8 % Normal 20.5-60.0 [facility] Comment on above: Performed By: #### P SASC #### [facility] [address] [place] [address] Dr. Sheela Zhang MANUAL DIFF REQ NO Normal [facility] Comment on above: Performed By: #### P SASC #### [facility] [address] [place] [address] Dr. Sheela Zhang MCH (RBC) [Entitic mass] 29.1 pg Normal 25.9-34.0 [facility] Comment on above: Performed By: #### P SASC #### [facility] [address] [place] [address] Dr. Sheela Zhang MCHC (RBC) [Mass/Vol] 32.4 g/dL Normal 29.9-35.2 [facility] Comment on above: Performed By: #### P SASC #### [facility] [address] [place] [address] Dr. Sheela Zhang MCV (RBC) [Entitic vol] 89.7 fL Normal 80.0-94.0 [facility] Comment on above: Performed By: #### P SASC #### [facility] [address] [place] [address] Dr. Sheela Zhang MONO # 0.9 103/ul Critically high 0.3-0.8 [facility] Comment on above: Performed By: #### P SASC #### [facility] [address] [place] [address] Dr. Sheela Zhang Monocytes/100 WBC (Bld) 8.3 % Normal 1.7-12.0 [facility] Comment on above: Performed By: #### P SASC #### [facility] [address] [place] [address] Dr. Sheela Zhang NEUT # 6.7 103/ul Critically high 1.4-6.5 [facility] Comment on above: Performed By: #### P SASC #### [facility] [address] [address] [address] Sheela Zhang Neutrophils/100 WBC (Bld) 59.1 % Normal 43.0-75.0 [facility] Comment on above: Performed By: #### P SASC #### [facility] [address] [address] [address] Sheela Zhang Platelet mean volume (Bld) [Entitic vol] 10.2 fL Normal 9.5-13.5 [facility] Comment on above: Performed By: #### P SASC #### [facility] [address] [address] [address] Sheela Zhang PLT 269 103/ul Normal 150-450 [facility] Comment on above: Performed By: #### P SASC #### [facility] [address] [place] [address] Dr. Sheela Zhang RBC 5.71 106/ul Normal 4.70-6.10 [facility] Comment on above: Performed By: #### P SASC #### [facility] [address] [address] [address] Sheela Zhang WBC 11.3 103/ul Critically high 4.0-11.0 [facility] Comment on above: Performed By: #### P SASC #### [facility] [address] [address] [address] Sheela Zhang GLYCOHEMOGLOBIN A1Con 2022 ADA RECOMMENDATION SEE BELOW Normal [facility] Comment on above: Result Comment: ADA RECOMMENDED LIMIT 4.0 - 6.0 ADA THERAPEUTIC TARGET < 7.0 ACTION SUGGESTED > 7.0 Performed By: #### A 1C #### [facility] [address] [address] [address] Sheela Zhang Glucose [Mass/Vol] 229 mg/dL Normal [facility] Comment on above: Performed By: #### A 1C #### [facility] [address] [place] [address] Dr. Sheela Zhang HbA1c (Bld) [Mass fraction] 9.6 % Critically high 4.5-6.2 [facility] Comment on above: Performed By: #### A 1C #### [facility] [address] [address] [address] Sheela Zhang LIPID PROFILEon 06-24-2022 CHOL-HDL RATIO NORM SEE BELOW Normal [facility] Comment on above: Result Comment: 3.3 - 4.4 LOW RISK 4.4 - 7.1 AVERAGE RISK 7.1 - 11.0 MODERATE RISK >11.0 HIGH RISK Performed By: #### P SASC #### [facility] [address] [address] [address] Sheela Zhang Cholesterol [Mass/Vol] 154 mg/dL Normal <=200 [facility] Comment on above: Performed By: #### P SASC #### [facility] [address] [address] [address] Sheela Zhang Cholesterol in HDL [Mass/Vol] 34 mg/dL Critically low 40-60 [facility] Comment on above: Performed By: #### P SASC #### [facility] [address] [address] [address] Sheela Zhang Cholesterol in LDL [Mass/Vol] 64.6 mg/dL Normal [facility] Comment on above: Performed By: #### P SASC #### [facility] [address] [address] [address] Sheela Zhang Cholesterol.total/Ch olesterol in HDL [Mass ratio] 4.5 {ratio} Normal [facility] Comment on above: Performed By: #### P SASC #### [facility] [address] [address] [address] Sheela Zhang HDL NORMAL > or = 60 mg/dl - LO W CARDIOVASCULAR RISK <40 mg/dl - HIGH CARDIOVASCULAR RISK Normal [facility] Comment on above: Performed By: #### P SASC #### [facility] [address] [address] [address] Sheela Zhang LDL CALC NORMAL SEE BELOW Normal [facility] Comment on above: Result Comment: <100 mg/dl OPTIMAL 100 - 129 mg/dl NEAR OR ABOVE OPTIMAL 130 - 159 mg/dl BORDERLINE HIGH 160 - 189 mg/dl HIGH >190 mg/dl VERY HIGH Performed By: #### P SASC #### [facility] [address] [address] [address] Sheela Zhang Triglyceride [Mass/Vol] 277 mg/dL Critically high <=150 [facility] Comment on above: Performed By: #### P SASC #### [facility] [address] [address] [address] Sheela Zhang VLDL CALC 55.4 mg/dL Normal [facility] Comment on above: Performed By: #### P SASC #### [facility] [address] [address] [address] Sheela Zhang LIVER PROFILEon 06-24-2022 Albumin [Mass/Vol] 4.4 g/dL Normal 3.4-5.0 [facility] Comment on above: Performed By: #### P SASC #### [facility] [address] [place] [address] Dr. Sheela Zhang Albumin/Globulin [Mass ratio] 1.1 {ratio} Normal [facility] Comment on above: Performed By: #### P SASC #### [facility] [address] [address] [address] Sheela Zhang ALP [Catalytic activity/Vol] 103 U/L Normal 46-116 [facility] Comment on above: Performed By: #### P SASC #### [facility] [address] [place] [address] Dr. Sheela Zhang ALT [Catalytic activity/Vol] 43 U/L Normal 16-63 [facility] Comment on above: Performed By: #### P SASC #### [facility] [address] [place] [address] Dr. Sheela Zhang AST [Catalytic activity/Vol] 24 U/L Normal 15-37 [facility] Comment on above: Performed By: #### P SASC #### [facility] [address] [address] [address] Sheela Zhang BILI, CONJUGATED 0.1 mg/dL Normal 0.0-0.2 [facility] Comment on above: Performed By: #### P SASC #### [facility] [address] [address] [address] Sheela Zhang Bilirubin [Mass/Vol] 0.4 mg/dL Normal 0.2-1.0 [facility] Comment on above: Performed By: #### P SASC #### [facility] [address] [place] [address] Dr. Sheela Zhang Globulin (S) [Mass/Vol] 4.0 g/dL Normal [facility] Comment on above: Performed By: #### P SASC #### [facility] [address] [place] [address] Dr. Sheela Zhang Protein [Mass/Vol] 8.4 g/dL Critically high 6.4-8.2 [facility] Comment on above: Performed By: #### P SASC #### [facility] [address] [place] [address] Dr. Sheela Zhang MICROALBUMIN, RAND URon 02- mALB 3.0 mg/L Normal <=30.0 [facility] Comment on above: Performed By: #### P SASC #### [facility] [address] [address] [address] Sheela Zhang PROF CHEM 8 (BAS METB)on Anion gap [Moles/Vol] 14.2 mmol/L Normal [facility] Comment on above: Performed By: #### P SASC #### [facility] [address] [place] [address] Dr. Sheela Zhang Calcium [Mass/Vol] 10.1 mg/dL Normal 8.5-10.1 [facility] Comment on above: Performed By: #### P SASC #### [facility] [address] [place] [address] Dr. Sheela Zhang Chloride [Moles/Vol] 99 mmol/L Normal 98-107 [facility] Comment on above: Performed By: #### P SASC #### [facility] [address] [address] [address] Sheela Zhang CO2 [Moles/Vol] 29.4 mmol/L Normal 21.0-32.0 [facility] Comment on above: Performed By: #### P SASC #### [facility] [address] [address] [address] Sheela Zhang Creatinine [Mass/Vol] 1.04 mg/dL Normal 0.70-1.30 [facility] Comment on above: Performed By: #### P SASC #### [facility] [address] [address] [address] Sheela Zhang EGFR-AF SCOTTISH >60 Normal >=60 [facility] Comment on above: Performed By: #### P SASC #### [facility] [address] [address] [address] Sheela Zhang EGFR-NON AF SCOTTISH >60 Normal >=60 [facility] Comment on above: Performed By: #### P SASC #### [facility] [address] [address] [address] Sheela Zhang Glucose [Mass/Vol] 233 mg/dL Critically high 74-106 [facility] Comment on above: Performed By: #### P SASC #### [facility] [address] [address] [address] Sheela Zhang Potassium [Moles/Vol] 3.6 mmol/L Normal 3.5-5.1 [facility] Comment on above: Performed By: #### P SASC #### [facility] [address] [address] [address] Sheela Zhang Sodium [Moles/Vol] 139 mmol/L Normal 136-145 [facility] Comment on above: Performed By: #### P SASC #### [facility] [address] [address] [address] Sheela Zhang Urea nitrogen [Mass/Vol] 12.0 mg/dL Normal 7.0-18.0 [facility] Comment on above: Performed By: #### P SASC #### [facility] [address] [address] [address] Sheela Zhang Urea nitrogen/Creatinine [Mass ratio] 11.5 mg/mg Normal [facility] Comment on above: Performed By: #### P SASC #### [facility] [address] [place], [place] [address] Dr. Sheela Zhang TSHon 06-24-2022 TSH 1.570 uIU/mL Normal 0.358-3.740 [facility] Comment on above: Performed By: #### P SASC #### [facility] [address] [address] [address] Sheela Zhang CBC AUTO DIFFon 05-05-2022 BASO # 0.1 103/ul Normal 0.0-0.1 [facility] Comment on above: Performed By: #### C BC ####[facility] [address] [place] [address]DrDayanara Zhang Basophils/100 WBC (Bld) 0.8 % Normal 0.2-2.0 [facility] Comment on above: Performed By: #### C BC ####[facility] [address] [place], [place] [address]Dr. Sheela Zhang EO # 0.4 103/ul Normal 0.0-0.7 [facility] Comment on above: Performed By: #### C BC ####[facility] [address] [place] [address]Dr. Sheela Zhang Eosinophils/100 WBC (Bld) 2.7 % Normal 0.9-7.0 [facility] Comment on above: Performed By: #### C BC ####[facility] [address] [place] [address]DrDayanara Zhang Erythrocyte distribution width (RBC) [Ratio] 12.8 % Normal 11.0-15.0 [facility] Comment on above: Performed By: #### C BC ####[facility] [address] [place] [address]DrDayanara Zhang Hematocrit (Bld) [Volume fraction] 50.3 % Normal 42.0-54.0 [facility] Comment on above: Performed By: #### C BC ####[facility] [address] [place], [place] [address]DrDayanara Zhang Hemoglobin (Bld) [Mass/Vol] 17.0 g/dL Normal 14.0-18.0 [facility] Comment on above: Performed By: #### C BC ####[facility] [address] [place] [address]DrDayanara Zhang IG # 0.05 10e3/ul Critically high 0.00-0.03 [facility] Comment on above: Performed By: #### C BC ####[facility] [facility] [address] [place] [address]DrDayanara Zhang IG % 0.4 % Normal 0.0-0.5 [facility] Comment on above: Performed By: #### C BC ####[facility] [address]ikycs[address] [place] [address]DrDayanara Zhang LYMPH # 3.6 103/ul Normal 1.2-3.8 [facility] Comment on above: Performed By: #### C BC ####[facility] [address]qjlplsg[address] [place] [address]DrDayanara Zhang Lymphocytes/100 WBC (Bld) 26.0 % Normal 20.5-60.0 [facility] Comment on above: Performed By: #### C BC ####[facility] [address]pssw[address] [place] [address]DrDayanara Zhang MANUAL DIFF REQ NO Normal [facility] Comment on above: Performed By: #### C BC ####[facility] Phwynkutev[address] [place] [address]DrDayanara Zhang MCH (RBC) [Entitic mass] 30.0 pg Normal 25.9-34.0 [facility] Comment on above: Performed By: #### C BC ####[facility] [address]ijq[address] [place] [address]DrDayanara Zhang MCHC (RBC) [Mass/Vol] 33.8 g/dL Normal 29.9-35.2 [facility] Comment on above: Performed By: #### C BC ####[facility] Riigbghhfo[address] [place] [address]DrDayanara Zhang MCV (RBC) [Entitic vol] 88.7 fL Normal 80.0-94.0 [facility] Comment on above: Performed By: #### C BC ####[facility] [address]ss[address] [place] [address]Dr. Sheela Zhang MONO # 1.2 103/ul Critically high 0.3-0.8 [facility] Comment on above: Performed By: #### C BC ####[facility] [address] [place] [address]Dr. Sheela Vicente Monocytes/100 WBC (Bld) 8.4 % Normal 1.7-12.0 [facility] Comment on above: Performed By: #### C BC ####[facility] [address]krklhih[address] [place] [address]Dr. Sheela Zhang NEUT # 8.6 103/ul Critically high 1.4-6.5 [facility] Comment on above: Performed By: #### C BC ####[facility] [address] [place], [place] [address]Dr. Aissatouisidro Zhang Neutrophils/100 WBC (Bld) 61.7 % Normal 43.0-75.0 [facility] Comment on above: Performed By: #### C BC ####[facility] [address] [place], [place] [address]Dr. Sheela Vicente Platelet mean volume (Bld) [Entitic vol] 9.6 fL Normal 9.5-13.5 [facility] Comment on above: Performed By: #### C BC ####[facility] [address] [place] [id number]. Sheela Vicente PLT 275 103/ul Normal 150-450 [facility] Comment on above: Performed By: #### C BC ####[facility] Urfv[address]qkjn[address] [place] [phone]. Sheela Zhang RBC 5.67 106/ul Normal 4.70-6.10 [facility] Comment on above: Performed By: #### C BC ####[facility] X[address]akkabjqo[address] [place] [phone]. Sheela Zhang WBC 13.9 103/ul Critically high 4.0-11.0 [facility] Comment on above: Performed By: #### C BC ####[facility] [address]umelwon[address] [place] [address]Dr. Sheela Zhang PROF 14(COMP METB)on 022 Albumin [Mass/Vol] 4.3 g/dL Normal 3.4-5.0 [facility] Comment on above: Performed By: #### T VICENTE CARRENO, CMP ####[facility] [address]bkdcvuoyl[address] [place] [address]Dr. Sheela Zhang Albumin/Globulin [Mass ratio] 1.1 {ratio} Normal [facility] Comment on above: Performed By: #### T VICENTE CARRENO, CMP ####[facility] [address] [place], [place] [address]Dr. Sheela Zhang ALP [Catalytic activity/Vol] 118 U/L Critically high 46-116 [facility] Comment on above: Performed By: #### T VICENTE CARRENO, CMP ####[facility] [address] [place], [place] [address]Dr. Sheela Zhang ALT [Catalytic activity/Vol] 30 U/L Normal 16-63 [facility] Comment on above: Performed By: #### T VICENTE CARRENO, CMP ####[facility] [address] [place] [address]Dr. Sheela Zhang Anion gap [Moles/Vol] 11.6 mmol/L Normal [facility] Comment on above: Performed By: #### T VICENTE CARRENO, CMP ####[facility] [address]ie[address]ek[address] [place], [place] [address]Dr. Sheela Zhang AST [Catalytic activity/Vol] 19 U/L Normal 15-37 [facility] Comment on above: Performed By: #### T VICENTE CARRENO, CMP ####[facility] [address]ke[address] [place] [address]Dr. Sheela Zhang Bilirubin [Mass/Vol] 0.3 mg/dL Normal 0.2-1.0 [facility] Comment on above: Performed By: #### T VICENTE CARRENO, CMP ####[facility] Listgcujic[address] [place] [address]Dr. Sheela Zhang Calcium [Mass/Vol] 9.6 mg/dL Normal 8.5-10.1 [facility] Comment on above: Performed By: #### T SH, HSTROPN, CMP ####[facility] [address]jt[address] [place] [address]Dr. Sheela Zhang Chloride [Moles/Vol] 102 mmol/L Normal 98-107 [facility] Comment on above: Performed By: #### T SH, HSTROPN, CMP ####[facility] [address]mi[address]pz[address] [place] [address]Dr. Sheela Zhang CO2 [Moles/Vol] 28.5 mmol/L Normal 21.0-32.0 [facility] Comment on above: Performed By: #### T SH, HSTROPN, CMP ####[facility] [address] [place] [address]Dr. Sheela Zhang Creatinine [Mass/Vol] 0.92 mg/dL Normal 0.70-1.30 [facility] Comment on above: Performed By: #### T SH, HSTROPN, CMP ####[facility] [address] [place] [address]Dr. Sheela Zhang EGFR-AF SCOTTISH >60 Normal >=60 [facility] Comment on above: Performed By: #### T SH, HSTROPN, CMP ####[facility] [address]lpjidix[address] [place] [address]Dr. Sheela Zhang EGFR-NON AF SCOTTISH >60 Normal >=60 [facility] Comment on above: Performed By: #### T SH, HSTROPN, CMP ####[facility] [address]tw[address] [place] [address]Dr. Sheela Zhang Globulin (S) [Mass/Vol] 3.8 g/dL Normal [facility] Comment on above: Performed By: #### T SH, HSTROPN, CMP ####[facility] [address] [place] [address]Dr. Sheela Zhang Glucose [Mass/Vol] 130 mg/dL Critically high 74-106 [facility] Comment on above: Performed By: #### T CASTILLO CARRENOTRANDRY, CMP ####[facility] [address]zb[address]azusav[address] [place] [address]Dr. Sheela Zhang Potassium [Moles/Vol] 4.1 mmol/L Normal 3.5-5.1 [facility] Comment on above: Performed By: #### T CASTILLO CARRENOTRANDRY, CMP ####[facility] [address] [place], [place] [address]Dr. Sheela Zhang Protein [Mass/Vol] 8.1 g/dL Normal 6.4-8.2 [facility] Comment on above: Performed By: #### T CASTILLO CARRENOTRANDRY, CMP ####[facility] [address] [place], [place] [address]Dr. Sheela Zhang Sodium [Moles/Vol] 138 mmol/L Normal 136-145 [facility] Comment on above: Performed By: #### T WAI HSTROPKuldeep, CMP ####[facility] [address]trzbmp[address] [place], [place] [address]Dr. Sheela Zhang Urea nitrogen [Mass/Vol] 11.0 mg/dL Normal 7.0-18.0 [facility] Comment on above: Performed By: #### T CASTILLO CARRENOTRANDRY, CMP ####[facility] [address] [place], [place] [address]Dr. Sheela Zhang Urea nitrogen/Creatinine [Mass ratio] 12.0 mg/mg Normal [facility] Comment on above: Performed By: #### T WAI HSTROPKuldeep, CMP ####[facility] [address] [place], [place] [address]Dr. Sheela Zhang PROTIMEon 05-05-2022 INR Coag (PPP) [Relative time] 0.97 {INR} Normal [facility] Comment on above: Performed By: #### P T, PTT ####[facility] [address]ek[address]sw[address] [place], [place] [address]Dr. Sheela Zhang INR GUIDELINES SEE BELOW Normal [facility] Comment on above: Result Comment: FRANCISCO JAVIER RED INR: 2.0 - 3.0 CONDITIONS NOT LISTED BELOW 2.5 - 3.5 FOR PROSTHETIC HEART VALVE REPLACEMENT 2.5 - 3.5 RECURRENT THROMBOSIS Performed By: #### P T, PTT ####[facility] [address]qgygp[address] [place] [phone]. Sheela Zhang PT Coag (PPP) [Time] 10.5 s Normal 9.0-11.6 [facility] Comment on above: Performed By: #### P T, PTT ####[facility] [address] [place] [phone]. Sheela Zhang PTTon 05-05-2022 aPTT Coag (Bld) [Time] 27.2 s Normal 22.3-36.2 [facility] Comment on above: Performed By: #### P T, PTT ####[facility] [address] [place] [address]Dr. Sheela Zhang TROPONIN, HIGH SENSITIVITYon 05-05-2022 HSTROP 21.3 pg/mL Normal 4.0-76.1 [facility] Comment on above: Result Comment: CUT- OFF POINTS HAVE BEEN ESTABLISHED BASED ON THE FOURTH UNIVERSAL DEFINITIONS OF MYOCARDIAL INFARCTION. THE UPPER REFERENCE LIMIT (URL) OF TROPONIN, DEFINED THE 99TH PERCENTILE OF cTnI DISTRIBUTION IN A REFERENCE POPULATION, HAS BEEN CONFIRMED THE DECISION THRESHOLD FOR [place] DIAGNOSIS. Performed By: #### T SH, HSTROPN, CMP ####[facility] [address] [place] [address]Dr. Sheela Zhang TSHon 05-05-2022 TSH 2.155 uIU/mL Normal 0.358-3.740 [facility] Comment on above: Performed By: #### T SH, HSTROPN, CMP ####[facility] [address] [place] [address]Dr. Sheela Zhang XR CHEST 1 Von 05-05-2022 [...] JOHN BENTON Date: 2022-05-05 19:25 Normal [facility] CBC AUTO DIFFon 04-30-2022 BASO # 0.1 103/ul Normal 0.0-0.1 [facility] Comment on above: Performed By: #### C VDTBH #### [facility] [address] [place] [address] Dr. Sheela Zhang Basophils/100 WBC (Bld) 0.9 % Normal 0.2-2.0 [facility] Comment on above: Performed By: #### C VDTBH #### [facility] [address] [place] [address] Dr. Sheela Zhang EO # 0.2 103/ul Normal 0.0-0.7 [facility] Comment on above: Performed By: #### C VDTBH #### [facility] [address] [place] [address] Dr. Sheela Zhang Eosinophils/100 WBC (Bld) 1.7 % Normal 0.9-7.0 [facility] Comment on above: Performed By: #### C VDTBH #### [facility] [address] [place] [address] Dr. Sheela Zhang Erythrocyte distribution width (RBC) [Ratio] 13.0 % Normal 11.0-15.0 [facility] Comment on above: Performed By: #### C VDTBH #### [facility] [address] [place] [address] Dr. Sheela Zhang Hematocrit (Bld) [Volume fraction] 51.3 % Normal 42.0-54.0 [facility] Comment on above: Performed By: #### C VDTBH #### [facility] [address] [place] [address] Dr. Sheela Zhang Hemoglobin (Bld) [Mass/Vol] 17.2 g/dL Normal 14.0-18.0 [facility] Comment on above: Performed By: #### C VDTBH #### [facility] [address] [place] [address] [address] Sheela Zhang IG # 0.08 10e3/ul Critically high 0.00-0.03 [facility] Comment on above: Performed By: #### C VDTBH #### [facility] [address] [place] [address] [address] Sheela Zhang IG % 0.6 % Critically high 0.0-0.5 [facility] Comment on above: Performed By: #### C VDTBH #### [facility] [address] [place] [address] [address] Sheela Zhang LYMPH # 3.2 103/ul Normal 1.2-3.8 [facility] Comment on above: Performed By: #### C VDTBH #### [facility] [address] [place] [address] Dr. Sheela Zhang Lymphocytes/100 WBC (Bld) 24.5 % Normal 20.5-60.0 [facility] Comment on above: Performed By: #### C VDTBH #### [facility] [address] [place] [address] Dr. Sheela Zhang MANUAL DIFF REQ NO Normal [facility] Comment on above: Performed By: #### C VDTBH #### [facility] [address] [place] [address] Dr. Sheela Zhang MCH (RBC) [Entitic mass] 29.5 pg Normal 25.9-34.0 [facility] Comment on above: Performed By: #### C VDTBH #### [facility] [address] [place] [address] Dr. Sheela Zhnag MCHC (RBC) [Mass/Vol] 33.5 g/dL Normal 29.9-35.2 [facility] Comment on above: Performed By: #### C VDTBH #### [facility] [address] [place] [address] Dr. Sheela Zhang MCV (RBC) [Entitic vol] 88.0 fL Normal 80.0-94.0 [facility] Comment on above: Performed By: #### C VDTBH #### [facility] [address] [place] [address] [address] Sheela Zhang MONO # 0.9 103/ul Critically high 0.3-0.8 [facility] Comment on above: Performed By: #### C VDTBH #### [facility] [address] [place] [address] [address] Sheela Zhang Monocytes/100 WBC (Bld) 6.9 % Normal 1.7-12.0 [facility] Comment on above: Performed By: #### C VDTBH #### [facility] [address] [place] [address] Dr. Sheela Zhang NEUT # 8.7 103/ul Critically high 1.4-6.5 [facility] Comment on above: Performed By: #### C VDTBH #### [facility] [address] [place] [address] Dr. Sheela Zhang Neutrophils/100 WBC (Bld) 65.4 % Normal 43.0-75.0 [facility] Comment on above: Performed By: #### C VDTBH #### [facility] [address] [place] [address] Dr. Sheela Zhang Platelet mean volume (Bld) [Entitic vol] 10.0 fL Normal 9.5-13.5 [facility] Comment on above: Performed By: #### C VDTBH #### [facility] [address] [place] [address] Dr. Sheela Zhang PLT 285 103/ul Normal 150-450 [facility] Comment on above: Performed By: #### C VDTBH #### [facility] [address] [place] [address] Dr. Sheela Zhang RBC 5.83 106/ul Normal 4.70-6.10 [facility] Comment on above: Performed By: #### C VDTBH #### [facility] [address] [place] [address] Dr. Sheela Zhang WBC 13.2 103/ul Critically high 4.0-11.0 [facility] Comment on above: Performed By: #### C VDTBH #### [facility] [address] [place] [address] Dr. Sheela Zhang Covid-19 PCR ([facility])on 04-17 SARS-CoV-2 (COVID-19) RNA KOREY+probe Ql (Unsp spec) Not detected Normal NOT DETECTED [facility] Comment on above: Result Comment: This test is not yet approved or cleared by the [place] FDA. When there are no FDA-approved or cleared tests available, and other criteria are met, FDA can make tests available under an emergency access mechanism called an Emergency Use Authorization (EUA). The EUA for this test is supported by the [place] of Health and Human Service's (HHS's) declaration [...] SARS-CoV-2. Performed By: #### C VDTBH #### [facility] [address] [place] [address] Dr. Sheela Zhang INFLUENZA A AND B AGon 04-30 [facility] SEE BELOW Normal [facility] Comment on above: Result Comment: Nega tive for Flu A protein angiten. Infection due to Flu A cannot be ruled out. Flu A angiten in the sample may be below the detection limit of the test. Performed By: #### I NFLUAB #### [facility] [address] [place] [address] Dr. Sheela [facility] BELOW Normal [facility] Comment on above: Result Comment: Nega tive for Flu B protein antigen. Infection due to Flu B cannot be ruled out. Flu B antigen in the sample may be below the detection limit of the test. Performed By: #### I NFLUAB #### [facility] [address] [place] [address] Dr. Sheela Zhang INFLUENZA A AG Negative Normal NEGATIVE SEE COMMENT [facility] Comment on above: Performed By: #### I NFLUAB #### [facility] [address] [place] [address] Dr. Sheela Zhang INFLUENZA B AG Negative Normal NEGATIVE SEE COMMENT [facility] Comment on above: Performed By: #### I NFLUAB #### [facility] [address] [place] [address] Dr. Sheela Zhang INTERNAL CONTROLS Within Normal Limits Normal Wi thin Normal Limits [facility] Comment on above: Performed By: #### I NFLUAB #### [facility] [address] [place] [address] Dr. Sheela Zhang PROF CHEM 8 (BAS METB)on Anion gap [Moles/Vol] 14.1 mmol/L Normal [facility] Comment on above: Performed By: #### P SASC #### [facility] [address] [place] [address] Dr. Sheela Zhang Calcium [Mass/Vol] 9.7 mg/dL Normal 8.5-10.1 [facility] Comment on above: Performed By: #### P SASC #### [facility] [address] [place] [address] Dr. Sheela Zhang Chloride [Moles/Vol] 102 mmol/L Normal 98-107 [facility] Comment on above: Performed By: #### P SASC #### [facility] [address] [place] [address] Dr. Sheela Zhang CO2 [Moles/Vol] 26.5 mmol/L Normal 21.0-32.0 [facility] Comment on above: Performed By: #### P SASC #### [facility] [address] [place] [address] Dr. Sheela Zhang Creatinine [Mass/Vol] 0.90 mg/dL Normal 0.70-1.30 [facility] Comment on above: Performed By: #### P SASC #### [facility] [address] [place] [address] Dr. Sheela Zhang EGFR-AF SCOTTISH >60 Normal >=60 [facility] Comment on above: Performed By: #### P SASC #### [facility] [address] [place] [address] [address] Sheela Zhang EGFR-NON AF SCOTTISH >60 Normal >=60 [facility] Comment on above: Performed By: #### P SASC #### [facility] [address] [address] [address] Sheela Zhang Glucose [Mass/Vol] 125 mg/dL Critically high 74-106 [facility] Comment on above: Performed By: #### P SASC #### [facility] [address] [address] [address] Sheela Zhang Potassium [Moles/Vol] 3.6 mmol/L Normal 3.5-5.1 [facility] Comment on above: Performed By: #### P SASC #### [facility] [address] [address] [address] Sheela Zhang Sodium [Moles/Vol] 139 mmol/L Normal 136-145 [facility] Comment on above: Performed By: #### P SASC #### [facility] [address] [address] [address] Sheela Zhang Urea nitrogen [Mass/Vol] 11.0 mg/dL Normal 7.0-18.0 [facility] Comment on above: Performed By: #### P SASC #### [facility] [address] [address] [address] Sheela Zhang Urea nitrogen/Creatinine [Mass ratio] 12.2 mg/mg Normal [facility] Comment on above: Performed By: #### P SASC #### [facility] [address] [address] [address] Sheela Zhang NM STRESS/REST MULTIon 02-05 NM STRESS/REST MULTI Patient: Toshia MCKEON. Exam Date: 02/05/2022 : 1970 Gender:M Ordering : DR BLAYNE LOVE . Admission #: [id number] Family : Order #: [id number] CLICK HERE TO VIEW EXAM RADIOLOGY REPORT [...] MD on 02/06/2022 at 10:51 Normal The [facility] GLYCOHEMOGLOBIN A1Con 2021 ADA RECOMMENDATION SEE BELOW Normal [facility] Comment on above: Result Comment: ADA RECOMMENDED LIMIT 4.0 - 6.0 ADA THERAPEUTIC TARGET < 7.0 ACTION SUGGESTED > 7.0 Performed By: #### A 1C ####[facility] [address] [place] [phone]. Sheela Zhang Glucose [Mass/Vol] 258 mg/dL Normal [facility] Comment on above: Performed By: #### A 1C ####[facility] [address] [place] [phone] Zhang HbA1c (Bld) [Mass fraction] 10.6 % Critically high 4.5-6.2 [facility] Comment on above: Performed By: #### A 1C ####[facility] [address] [place], [place] [address]Qb. Sheela Zhang XR FOOT SANIA MIN 3 VIEWSon XR FOOT SANIA MIN 3 VIEWS EXAMINATION: [...] by: MERT BAH Date: 2021-08-29 13:51 Normal [facility] MRI ANKLE LT WO CONon 2021 MRI [...] by: ROSEMARY ENG Date: 2021-08-17 12:14 Normal [facility] GLYCOHEMOGLOBIN A1Con 2021 ADA RECOMMENDATION ADA THERAPEUTIC TARG ET 6.0 - 7.0 ACTION SUGGESTED > 7.0 Normal [facility] Comment on above: Performed By: #### C VDTB #### [facility] [address] [place] [address] Dr. Sheela Zhang Glucose [Mass/Vol] 186 mg/dL Normal [facility] Comment on above: Performed By: #### C VDTBH #### [facility] [address] [address] [address] Sheela Zhang HbA1c (Bld) [Mass fraction] 8.1 % Critically high <=6.0 [facility] Comment on above: Performed By: #### C VDTBH #### [facility] [address] [address] [address] Sheela Zhang XR LSPINE 2_3 VIEWSon [...] by: MADDI BENTLEY Date: 2021-08-08 17:25 Normal [facility] Encounters Encounter Date Encounter Type Care Provider Facility Start: 02-08-2024 End: 02-08-2024 ambulatory BLAYNE LOVE Not Available Start: 11-09-2023 End: 11-09-2023 ambulatory BLAYNE LOVE Not Available Start: 08-10-2023 End: 08-10-2023 ambulatory BLAYNE LOVE Not Available Start: 06-30-2023 Refill Blayne Diego Work Phone: [facility] Comment on above: Chronic migraine wit hout aura, not intractable, without status migrainosus (CMS/HCC); Chronic migraine without aura (CMS/HCC) Start: 06-26-2023 Refill Blayne Diego Work Phone: [facility] Comment on above: Other specified abno rmal findings of blood chemistry Start: 06-23-2023 Refill Blayne Diego Work Phone: [facility] Comment on above: 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, bilateral Start: 04-20-2023 End: 04-20-2023 ambulatory BLAYNE LOVE Not Available Start: 08-01-[address] BLAYNE LOVE [facility] ity:H1 Start: 07-03-2022 End: 07-03-[address] BLAYNE LOVE Facility:H1 Start: 06-24-2022 End: 06-25-[address] BLAYNE LOVE Facility:H1 Start: 05-05-2022 End: 05-05-[address] BLAYNE LOVE Facility:H1 Start: 04-30-2022 End: 04-30-[address] BLAYNE LOVE Facility:H1 Start: 02-06-[address] BLAYNE LOVE Facil ity:H1 Start: 02-05-2022 End: 02-06-[address] BLAYNE LOVE Facility:H1 Start: 01-29-2022 End: 01-30-[address] BLAYNE LOVE Facility:H1 Start: 08-30-2021 End: 12-13-[address] BLAYNE LOVE Facility:H1 Start: 08-29-2021 End: 08-30-[address] BLAYNE LOVE Facility:H1 Start: 08-16-2021 End: 08-17-[address] BLAYNE LOVE Facility:H1 Start: 08-08-2021 End: 08-09-[address] BLAYNE LOVE Facility:H1 Start: 04-20-2017 End: 04-21-2017 Ambulatory DEFAULT PHYSICIAN Facility:[facility] Start: 04-15-2017 End: 04-16-2017 Ambulatory DEFAULT PHYSICIAN Facility:[facility] Procedures Date Procedure Procedure Detail Performing Clinician Start: 06-24-[address] BLAYNE RAMACHANDRAN Comment on above: Performed By: #### [facility] #### [facility] [address] [place] [address] Dr. Sheela Zhang Plan of Treatment Date Care Activity Detail Author Start: 08-10-2023 End: 08-10-2023 Patient encounter procedure 08/10/2023 11:45 AM EDT Office Visit [facility] [address] [place] [id number] Blayne Love MD [address] [place] [address] [facility] Start: 06-24-2023 Urine screening for protein Diabetes: Urine Protein Screening [facility] Start: 01-16-2023 Influenza vaccination Influenza Vacc ine (#1) [facility] Start: 1981 Glaucoma screening Diabetes: R etinopathy Screening [facility] Start: 1971 Hemoglobin A1c measurement Diabetes: Hemoglobin A1C [facility] Start: 1971 Screening for malign ant neoplasm of colon [facility] Immunizations Immunization Date Immunization Notes Care Provider Fa cility 07-02-2022 influenza virus vacc ine, unspecified formulation Blayne Love MD Work Phone: [facility] Payers Date Payer Category Payer Unknown 1971 Unknown [id number] 2.16.84 [id number] 1971 Unknown [id number] 2.16.84 0.1.873717.3.579.2.593 1971 Unknown [id number] 2.16.84 0.1.977657.3.579.2.593 1971 Unknown [id number] 2.16.84 0.1.979621.3.579.2.593 1971 Unknown [id number] 2.16.84 0.1.522116.3.579.2.593 1971 Unknown [id number] 2.16.84 0.1.833175.3.579.2.593 1971 Unknown [id number] 2.16.84 0.1.285644.3.579.2.593 1971 Unknown [id number] 2.16.84 0.1.227920.3.579.2.593 1971 Unknown [id number] 2.16.84 0.1.751655.3.579.2.593 1971 Unknown [id number] 2.16.84 0.1.341925.3.579.2.593 1971 Unknown [id number] 2.16.84 0.1.671332.3.579.2.593 1971 Unknown [id number] 2.16.84 0.1.638474.3.579.2.593 1971 Unknown [id number] 2.16.84 0.1.802586.3.579.2.1259 1971 Unknown [id number] 2.16.84 0.1.776948.3.579.2.1259 1971 Unknown [id number] 2.16.84 0.1.775303.3.579.2.1259 1971 Unknown [id number] 2.16.840 .1.275671.3.579.2.1259 1959 Unknown [id number] 1959 Unknown [id number] 1959 Unknown [id number] Social History Date Type Detail Facility Start: [...] Rape, and Kick questionnaire [HARK] [facility] Within the last year , have you been afraid of your partner or ex-partner? Patient refused [facility] Are you now , , , , never or living with a partner? Refused [facility] (I/We) worried wheth er (my/our) food would run out before (I/we) got money to buy more. DK or Refused [facility] Start: 1970 Sex Assigned At Not on file N [facility] Medical Equipment Procedure Code Equipment Code Equipment Origin al Text Equipment Identifier Dates USE DIRECTED WITH LANCETS [id number] Start: 12-30-2022 USE 1 A DAY [id number] Start: 03-07-2023 TEST ONCE A DAY [id number] Start: 04-12-2023 Clinical Note 08-08-2021 Note Date & Type Note Facility 08-08-2021 Note PROCEDURE: XR KNEE R T 3V HISTORY: Pain of right knee joint COMPARISON: None. FINDINGS: BONES:No fracture, acute abnormality, or significant arthropathy. SOFT TISSUES:No visible soft tissue swelling. EFFUSION:None visible. OTHER: Negative. IMPRESSION: 1. No acute bone abnormality or significant degenerative changes. Electronically authenticated by: MADDI BENTLEY Date: 2021-08-08 17:55 [facility] Clinical Note 08-08-2021 Note Date & [...] by: MADDI BENTLEY Date: 2021-08-08 17:26 [facility] Clinical Note 08-08-2021 Note Date & [...] by: MADDI BENTLEY Date: 2021-08-08 17:26 [facility] Evaluation note Note Date & Type Note Facility Evaluation note Diagnosis Primary osteoarthritis of ankles, bilateral documented in this encounter [facility] Evaluation note Note Date & Type Note Facility Evaluation note Diagnosis Other specified abnormal findings of blood chemistry documented in this encounter [facility] Evaluation note Note Date & Type [...] section and content) DATE CREATED AUTHOR 11/10/2017 [facility] DATE CREATED AUTHOR AUTHOR'S ORGANIZ ATION 08/08/2022 [facility] DATE CREATED AUTHOR AUTHOR'S ORGANIZ ATION 02/09/2024 [facility] EPIC Reason for Visit (unrecogniz ed section and content) Reason Onset Date Comments Med Refill 06/23/2023 Reason Comments Med Refill Care Teams (unrecognized sec tion and content) Teletypesetter Relationship Specialty Start Date End Date Blayne Love MD PCP - General Family Medicine 05/18/22 Teletypesetter Relationship Specialty Start Date End Date Blayne [...] BE BASED ON THE PRIMARY CLINICAL RECORDS. [facility] [address] [facility]. provides no warranty or guarantee of the accuracy or completeness of information in this document.
[2024-02-16 04:09] LABS: Testosterone 114 ng/dL (264-916)
== END 2024-02-15 10:36 | disposition home or self-care (01) ==
LOC: LAB 10:38
PROVIDERS: PCP Family Medicine; Visit Provider Family Medicine
DX: E29.1 Testicular hypofunction (principal)
CPT/HCPCS: 36415; 84403

== ENCOUNTER 2024-06-03 13:14 | Outpatient (OUT) | payer OTHER, SELFPAY ==
--- OUTSIDE RECORDS SUMMARY | 2024-06-03 13:29 | XMS_ITS | CCD ---
Author Organization [facility] Care Team Providers Care Customer Service Voice Name Role Phone PHYSICIAN, DEFAULT Unavailable Unavailable [...] REINECK, DR BARRERA Bautista Consulting Unavailabl e INEZEBER, DR MADDI Dao Consulting Unavailable NADERER, DR BLAYNE Dominguez Consulting Unavailable GRECHNY ., OCTAVIANO STONE Consulting Unavailabl e TROTTI, GIROLAMO Consulting Unavailable SISTER, MAC Consulting Unavailable DIAB ., PHYLLIS Consulting Unavailable NADERER, DR BLAYNE Dominguez Primary Care Unavailable WEST, DR MERT Rawls Consulting Unavailable HIGHLANDER, DARRELL Diego Attending Unavailable HIGHLANDER, DARRELL Diego Admitting Unavailable HIGHLANDER, DRARELL Diego Consulting Unavailable NADERER, DR BLAYNE Dominguez [...] Unavailable NADERER, DR BLAYNE Dominguez Attending Unavailable IVAN, DR BLAYNE Dominguez Primary Care Unavailable NADERESylwia, DR BLAYNE Dominguez Admitting Unavailable ROSEMARY ENG Consulting Unavailable NADZAN, DR BLAYNE Dominguez Attending Unavailable NADERER, DR BLAYNE Dominguez Admitting Unavailable NADERESylwia, DR BLAYNE Dominguez Primary Care Unavailable NADERESylwia, DR BLAYNE Dominguez Primary Care Unavailable HAY ., DR SIMON Attending Unavailable HAY ., DR SIMON Admitting Unavailable HAY ., DR SIMON Consulting Unavailable NADERESylwia, DR BLAYNE Dominguez Primary Care Unavailable DAVE, YOBANI Diego Admitting Unavailable KATLOREN, YOBANI Diego Attending Unavailable GRECHNY ., OCTAVIANO STONE Consulting Unavailsonia BENTON, JOHN Consulting Unavailable Blayne Love MD Primary Care Provider Blayne Love MD Primary Care Provider [phone] BLAYNE LOVE Attending Unavailable IVAN, BLAYNE Attending Unavailable ABRILERESylwia, BLAYNE Attending Unavailable NADERESylwia, BLAYNE Attending Unavailable Medications Current Medications Medication Drug Class(es) Dates Sig (Normalized) Sig (Original) acetaminophen 325 mg / butalbital 50 mg / caffeine 40 mg oral tablet (20 sources) Barbiturate, Central Nervous System Stimulant, Methylxanthine Start: 02-22-2024 End: 04-11-2024 take 1 tablet by mouth four times daily as needed butalbital-acetam inophen-caffeine 50-325-40 MG tablet Indications: Chronic migraine without aura, not intractable, without status migrainosus (CMS/HCC) , Chronic migraine without aura (CMS/HCC) Take 1 tablet by mouth 4 (four) times a day as needed for migraine 60 tablet 2 04/11/2024 Active Start: 02-22-2024 End: 02-22-2024 take 1 tablet by mouth every four hours as needed estygtvjbo-jgfblsinvivkw-jjgwgtlp 50-325 -40 MG tablet Indications: Chronic migraine without aura, not intractable, without status migrainosus (CMS/HCC) , Chronic migraine without aura (CMS/HCC) TAKE 1 TABLET BY MOUTH EVERY 4 HOURS NEEDED 60 tablet 4 02/22/2024 02/22/2024 Discontinued (Reorder) Start: 11-17-2023 take 1 tablet by mouth every four hours as needed hopsyhioji-apmblpaurzatu-fpfpmdsn 50-325 -40 MG tablet Indications: Chronic migraine without aura, not intractable, without status migrainosus (CMS/HCC) , Chronic migraine without aura (CMS/HCC) TAKE 1 TABLET BY MOUTH EVERY 4 HOURS NEEDED 60 tablet 4 11/17/2023 Active Start: 06-30-2023 take 1 tablet by mouth every four hours as needed pktunkowmk-fbkchjjuzhmpg-fojofccy 50-325 -40 MG tablet Indications: Chronic migraine without aura, not intractable, without status migrainosus (CMS/HCC) , Chronic migraine without aura (CMS/HCC) TAKE 1 TABLET BY MOUTH EVERY 4 HOURS NEEDED 60 tablet 4 06/30/2023 Active Start: 05-01-2023 End: 06-30-2023 take 1 tablet by mouth every four hours as needed ibzixuchoi-ygvrsbfyjnrix-nlbaigux 50-325 -40 MG tablet Indications: Chronic migraine without aura, not intractable, without status migrainosus (CMS/HCC) , Chronic migraine without aura (CMS/HCC) TAKE 1 TABLET BY MOUTH EVERY 4 HOURS NEEDED 60 tablet 4 05/01/2023 06/30/2023 Discontinued acetaminophen 325 mg / oxyCODONE hydrochloride 10 mg oral tablet (20 sources) Opioid Agonist Start: 12-09-2023 End: 05-19-2024 take 1 tablet by mouth four times daily as needed for pain oxyCODONE-acetaminophen (Percocet) 10-325 MG tablet Indications: Primary osteoarthritis of ankles, bilateral Take 1 tablet by mouth 4 (four) times a day as needed for severe pain 120 tablet 01/12/2024 02/11/2024 Active Start: 05-22-2023 End: 06-23-2023 take 1 tablet by mouth four times daily as needed for pain oxyCODONE-acetaminophen (Percocet) 10-32 5 MG tablet Indications: Primary osteoarthritis of ankles, bilateral Take 1 tablet by mouth 4 (four) times a day as needed for severe pain 120 tablet 0 06/23/2023 Active amitriptyline hydrochloride 25 mg oral tablet (17 sources) Tricyclic Antidepressant Start: 08-10-2023 take 1 tablet by mouth once daily at bedtime amitriptyline (Elavil) 25 MG tablet Indications: Chronic midline low back pain without sciatica TAKE 1 TABLET BY MOUTH EVERYDAY AT BEDTIME 90 tablet 5 08/10/2023 Active take 1 tablet by mouth at bedtim e amitriptyline (Elavil) 25 MG tablet Take 1 tablet by mouth at bedtime. 0 Active amLODIPine 5 mg oral tablet (17 sources) Dihydropyridine Calcium Channel Santiago Start: 01-25-2024 take 1 tablet by mouth once daily amLODIPine (Norvasc) 5 MG tablet Indications: Essential (primary) hypertension (CMS/HCC) , Benign essential hypertension (CMS/HCC) TAKE 1 TABLET BY MOUTH EVERY DAY 90 tablet 3 01/25/2024 Active take 1 tablet by mouth in the mo rning amLODIPine (Norvasc) 5 MG tablet Take 1 tablet by mouth in the morning. Active atorvastatin 20 mg oral tablet (17 sources) HMG-CoA Reductase Inhibitor Start: 08-10-2023 take 1 tablet by mouth once daily atorvastatin (Lipitor) 20 MG tablet Indications: Type 2 diabetes mellitus with hyperglycemia, without long-term current use of insulin (CMS/HCC) TAKE 1 TABLET BY MOUTH EVERY DAY 90 tablet 5 08/10/2023 Active take 1 tablet by mouth in the mo rning atorvastatin (Lipitor) 20 MG tablet Take 1 tablet by mouth in the morning. 0 Active BD Disp Miles 21G X 1-1/2 misc (3 sources) Start: 06-24-2022 BD Disp Miles 21G X 1-1/2 misc USE DIRECTED TWICE A MONTH 0 06/24/2022 Active glipiZIDE 10 mg oral tablet (17 sources) Sulfonylurea Start: 06-01-2023 take 1 tablet by mouth twice daily glipiZIDE (Glucotrol) 10 MG tablet Indications: Type 2 diabetes mellitus with hyperglycemia (CMS/HCC) TAKE 1 TABLET BY MOUTH TWICE A DAY 180 tablet 3 06/01/2023 Active hydroCHLOROthiazide 25 mg / lisinopril 20 mg oral tablet (17 sources) Thiazide Diuretic, Angiotensin Converting Enzyme Inhibitor Start: 04-25-2024 take 2 tablets by mouth once daily lisinopril-hydroC HLOROthiazide 20-25 MG tablet Indications: Essential (primary) hypertension (CMS/HCC) , Benign essential hypertension (CMS/HCC) TAKE 2 TABLETS BY MOUTH EVERY DAY 180 tablet 3 04/25/2024 Active Start: 04-28-2023 take 2 tablets by mouth once daily lisinopril-hydroCHLOROthiazide 20-25 MG tablet Indications: Essential (primary) hypertension (CMS/HCC) , Benign essential hypertension ([facility] [place]) TAKE 2 TABLETS BY MOUTH EVERY DAY 180 tablet 3 04/28/2023 Active levoFLOXacin 750 mg oral tablet (1 source) Quinolone Antimicrobial Start: 04-13-2024 End: 04-20-2024 take 1 tablet by mouth once daily levoFLOXacin (Levaquin) 750 MG tablet Indications: Upper respiratory tract infection, unspecified type Take 1 tablet (750 mg) by mouth Daily for 7 days 7 tablet 04/13/2024 04/20/2024 Active lidocaine 50 mg/ml rectal cream (14 sources) Antiarrhythmic, Amide Local Anesthetic Start: 04-18-2024 End: 05-02-2024 AneCream5 5 % cream Indications: Low back pain, unspecified , Low back pain APPLY TO AFFECTED AREA 4 TIMES A DAY NEEDED 30 g 7 04/18/2024 05/02/2024 Discontinued Start: 10-29-2023 End: 04-18-2024 AneCream5 5 % cream Indicati ons: Low back pain, unspecified , Low back pain APPLY TO AFFECTED AREA 4 TIMES A DAY NEEDED 60 g 3 10/29/2023 04/18/2024 Discontinued 24 hr metFORMIN hydrochloride 500 mg extended release oral tablet (20 sources) Biguanide Start: 06-23-2023 take 2 tablets by mouth twice daily metFORMIN XR (Glucophage-XR) 500 MG 24 hr tablet Indications: Type 2 diabetes mellitus with hyperglycemia, without long-term current use of insulin ([facility] [place]) TAKE 2 TABLETS BY MOUTH TWICE A DAY 360 tablet 3 06/23/2023 Active End: 05-02-2024 take 2 tablets by mouth in the morning metFORMIN (Glucophage) 500 MG tablet Take 2 tablets by mouth in the morning and 2 tablets in the evening. Take with meals. 05/02/2024 Discontinued Needle, Disp, (BD Disp Miles) 21G X 1-1/2 misc (14 sources) Start: 11-23-2023 Needle, Disp, (BD Disp Miles) 21G X 1-1/2 misc Indications: Hypogonadism in male For use with testosterone 50 each 2 11/23/2023 Active polyethylene glycol 3350 50866 mg powder for oral solution (20 sources) Osmotic Laxative Start: 11-17-2023 End: 02-08-2024 polyethylene glycol, PEG, 3350 (Glycolax) 17 GM/SCOOP powder Indications: Chronic constipation MIX 1 CAPFUL INTO 8OZ OF LIQUID AND TAKE BY MOUTH ONCE A DAY 510 g 5 11/17/2023 Active tadalafil 5 mg oral tablet (17 sources) Phosphodiesterase 5 Inhibitor take 1 tablet by mouth in the morning tadalafil (Cialis) 5 MG tablet Take 1 tablet by mouth in the morning. Active 1 ml testosterone cypionate 200 mg/ml injection (14 sources) Androgen Start: 03-22-2024 testosterone cypionate (Depo-Testosteron e) 200 MG/ML injection Indications: Other specified abnormal findings of blood chemistry Inject 0.5 mL (100 mg) into the shoulder, thigh, or buttocks every 14 (fourteen) days 1 mL 3 03/22/2024 Active Start: 11-23-2023 End: 02-08-2024 testosterone cypionate (Depo -Testosterone) 200 MG/ML injection Indications: Other specified abnormal findings of blood chemistry Inject 0.5 mL (100 mg) into the shoulder, thigh, or buttocks every 14 (fourteen) days 11/23/2023 02/08/2024 Discontinued Start: 06-29-2023 testosterone c ypionate (Depo-Testosterone) 200 MG/ML injection Indications: Other specified abnormal findings of blood chemistry INJECT 1 ML INTRAMUSCULLARLY EVERY 2 WEEKS 10 mL 0 06/29/2023 Active End: 06-29-2023 testosterone cypionate (Depo -Testosterone) 200 MG/ML injection Inject 1 mL into the shoulder, thigh, or buttocks every 14 (fourteen) days. 0 06/29/2023 Discontinued Tirzepatide (Mounjaro) 10 MG/0.5ML solution pen-injector (14 sources) Start: 11-09-2023 inject 10 mg by subcutaneous injection every week Tirzepatide (Mounjaro) 10 MG/0.5ML solution pen-injector Indications: Type 2 diabetes mellitus with hyperglycemia, without long-term current use of insulin ([facility] [place]) Inject 10 mg under the skin 1 (one) time per week 2 mL 5 11/09/2023 Active Tirzepatide (Mounjaro) 5 MG/0.5ML solution pen-injector (3 sources) Start: 04-28-2023 inject 0.5 mL by subcutaneous injection every week Tirzepatide (Mounjaro) 5 MG/0.5ML solution pen-injector Indications: Type 2 diabetes mellitus with hyperglycemia, without long-term current use of insulin ([facility] [place]) Inject 0.5 mL under the skin 1 (one) time per week 2 mL 5 04/28/2023 Active tiZANidine 4 mg oral tablet (17 sources) Central alpha-2 Adrenergic Agonist Start: 01-25-2024 take 1 tablet by mouth three times daily as needed tiZANidine (Zanaflex) 4 MG tablet Indications: Chronic midline low back pain without sciatica TAKE 1 TABLET BY MOUTH THREE TIMES A DAY NEEDED 60 tablet 5 01/25/2024 Active Start: 08-10-2023 take 1 tablet by raheel th three times daily as needed tiZANidine (Zanaflex) 4 MG tablet Indications: Chronic midline low back pain without sciatica TAKE 1 TABLET BY MOUTH THREE TIMES A DAY NEEDED 60 tablet 5 08/10/2023 Active take 1 tablet by raheel th every eight hours as needed tiZANidine (Zanaflex) 4 MG tablet Take 1 tablet by mouth every 8 (eight) hours if needed for muscle spasms. 0 Active topiramate 50 mg oral tablet (17 sources) Start: 06-23-2023 take 1 tablet by mouth twice daily topiramate 50 MG tablet Indications: Chronic migraine without aura with status migrainosus, not intractable (CMS/HCC) TAKE 1 TABLET BY MOUTH TWICE A DAY 180 tablet 3 06/23/2023 Active traZODone hydrochloride 150 mg oral tablet (17 sources) Serotonin Reuptake Inhibitor Start: 08-10-2023 take 1 tablet by mouth at bedtime traZODone (Desyrel) 150 MG tablet Indications: Primary insomnia Take 1 tablet (150 mg) by mouth at bedtime 90 tablet 3 08/10/2023 Active Start: 06-23-2023 take 1 tablet by raheel th once daily at bedtime traZODone (Desyrel) 100 MG tablet Indications: Primary insomnia TAKE 1 TABLET BY MOUTH EVERYDAY AT BEDTIME 90 tablet 3 06/23/2023 Active Problems Active Problems Problem Classification Problem Date Documented Date Episodic/Chronic Acute and unspecified renal failure (1 source) Acute kidney failure, unspecified; Translations: [ACUTE KIDNEY FAILURE UNSPECIFIED] Onset: 07-07-2022 Episodic Diabetes mellitus with complications (20 sources) Type 2 diabetes mellitus with hyperglycemia; Translations: [Type 2 diabetes mellitus] Onset: 07-03-2022 Chronic Diabetes mellitus without complication (1 source) Type 2 diabetes mellitus without complications; Translations: [TYPE 2 DM WITHOUT COMPLICATIONS] Onset: 05-07-2022 Chronic Disorders of lipid metabolism (18 sources) Hyperlipidemia, unspecified; Translations: [Dyslipidemia] Onset: 07-07-2022 04-20-2023 Chronic Essential hypertension (20 sources) Essential (primary) hypertension; Translations: [Benign hypertension] Onset: 05-05-2022 Chronic Fluid and electrolyte disorders (1 source) Dehydration; Translations: [DEHYDRATION] Onset: 07-07-2022 Episodic Headache; including migraine (20 sources) Migraine without aura, not refractory ; Translations: [Chronic migraine without aura, not intractable, with status migrainosus] Onset: 04-20-2023 04-20-2023 Chronic Miscellaneous mental health disorders (19 sources) Primary insomnia; Translations: [Primary insomnia] Onset: 04-20-2023 04-20-2023 Chronic Osteoarthritis (20 sources) Primary osteoarthritis, right ankle and foot; Translations: [Primary osteoarthritis of ankle] Onset: 07-07-2022 06-23-2023 Chronic Other aftercare (1 source) 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; Translations: [GEOLOGIST PETROLEUM USE ORAL HYPOGLYCEMIC DX] Onset: 07-07-2022 Episodic Other aftercare (1 source) Other custodial (current) drug therapy; Translations: [OTH HALFWAY CURRENT DRUG THERAPY] Onset: 07-07-2022 Episodic Other endocrine disorders (16 sources) Male hypogonadism; Translations: [Testicular hypofunction] Onset: 11-09-2023 11-09-2023 Chronic Other male genital disorders (17 sources) Secondary erectile dysfunction; Translations: [Male erectile dysfunction, unspecified] Onset: 04-20-2023 04-20-2023 Chronic Other nutritional; endocrine; and metabolic disorders (1 source) Morbid (severe) obesity due to excess calories; Translations: [MORBID SEVERE OBES D/T EXCESS ANDI] Onset: 06-25-2022 Chronic Other nutritional; endocrine; and metabolic disorders (1 source) Body mass index (BMI) 40.0-44.9, adult; Translations: [BODY MASS INDEX BMI 40.0-44.9 ADULT] Onset: 06-25-2022 Chronic Other nutritional; endocrine; and metabolic disorders (17 sources) Morbid obesity; Translations: [Morbid (severe) obesity due to excess calories] Onset: 04-20-2023 04-20-2023 Chronic Other nutritional; endocrine; and metabolic disorders (2 sources) Severe obesity; Translations: [Class 3 severe obesity due to excess calories with serious comorbidity and body mass index (BMI) of 40.0 to 44.9 in adult] Onset: 04-20-2023 05-02-2024 Chronic Other upper respiratory infections (17 sources) Chronic pansinusitis; Translations: [Chronic pansinusitis] Onset: 04-20-2023 04-20-2023 Chronic Other upper respiratory infections (2 sources) Acute upper respiratory infection, unspecified; Translations: [Upper respiratory infection] Onset: 05-02-2022 04-13-2024 Episodic Residual codes; unclassified (1 source) Obstructive sleep apnea (adult) (pediatric); Translations: [OBSTRUCTIVE SLEEP APNEA] Onset: 07-07-2022 Chronic Residual codes; unclassified (17 sources) Obstructive sleep apnea syndrome; Translations: [Obstructive sleep apnea (adult) (pediatric)] Onset: 04-20-2023 04-20-2023 Chronic Spondylosis; intervertebral disc disorders; other back problems (20 sources) Dorsalgia, unspecified; Translations: [Lumbago with sciatica, unspecified side] Onset: 08-14-2021 04-20-2023 Episodic Unclassified (3 sources) LOW BACK PAIN, UNSPECIFIED; Translations: [LOW BACK PAIN, UNSPECIFIED] Onset: 08-01-2022 Unclassified (1 source) GEOLOGIST PETROLEUM INJECT NONINSULN ANTIDIAB; Translations: [HALFWAY INJECT NONINSULN ANTIDIAB] Onset: 07-07-2022 Unclassified (1 source) CONTACT W/AND (SUSP) EXPOS COVID-19; Translations: [CONTACT W/AND (SUSP) EXPOS COVID-19] Onset: 05-02-2022 Viral infection (1 source) COVID-19; Translations: [COVID-19] Onset: 07-07-2022 Past or Other Problems Problem Classification Problem Date Documented Da te Episodic/Chronic Mood disorders (14 sources) Recurrent major depression; Translations: [Major depressive disorder, recurrent, unspecified] Onset: 08-10-2023 Resolved: 08-10-2023 08-10-2023 Chronic Nonspecific chest pain (4 sources) Chest pain, unspecified; Translations: [CHEST PAIN UNSPECIFIED] Onset: 02-05-2022 Episodic Other aftercare (13 sources) Long-term current use of drug therapy; Translations: [Other custodial (current) drug therapy] Onset: 11-09-2023 11-09-2023 Episodic Other aftercare (1 source) Patient encounter status; Translations: [Other custodial (current) drug therapy] Onset: 11-09-2023 11-09-2023 Episodic Other connective tissue disease (1 source) [...] Onset: 08-21-2021 Episodic Other connective tissue disease (17 sources) Muscle pain; Translations: [Myalgia, unspecified site] Onset: 04-20-2023 04-20-2023 Episodic Other gastrointestinal disorders (17 sources) Chronic constipation; Translations: [Other constipation] Onset: 04-20-2023 04-20-2023 Episodic Other inflammatory condition of skin (17 sources) Seborrheic dermatitis; Translations: [Seborrheic dermatitis, unspecified] Onset: 04-20-2023 04-20-2023 Episodic Other non-traumatic joint disorders (4 sources) [...] IN RIGHT KNEE] Onset: 08-14-2021 Episodic Other non-traumatic joint disorders (17 sources) Joint pain; Translations: [Pain in unspecified joint] Onset: 04-20-2023 04-20-2023 Episodic Other screening for suspected conditions (not mental disorders or infectious disease) (19 sources) Other specified abnormal findings of blood chemistry; Translations: [Encounter for screening for malignant neoplasm of prostate] Onset: 06-25-2022 06-26-2023 Episodic Other upper respiratory disease (17 sources) Deviated nasal septum; Translations: [Deviated nasal septum] Onset: 04-20-2023 04-20-2023 Episodic Sprains and strains (9 sources) Sprain [...] Test Name Value Interpretation Reference Range Facility ALL TESTOSTERONEon Interpretation and review of laboratory results Abnormal [facility] Testosterone [Mass/Vol] 114 ng/dL Abnormal 264 - 916 ng/dL [facility] Comment on above: Adult male reference interval is based on a population of healthy nonobese males (BMI <30) between 19 and 39 years old. [place], et.al. JCEM 2017,102;[id number]. PMID: [id number]. Performed at: [facility] [id number] Link Cutter: Kenny Lee PhD, Phone: [phone] [facility] CBC AUTO DIFFon 07-03-2022 BASO # 0.0 103/ul Normal 0.0-0.1 [facility] Comment on above: Performed By: #### [facility] #### [facility] [address] [address] [address] Sheela Zhang Basophils/100 WBC (Bld) 0.2 % Normal 0.2-2.0 [facility] Comment on above: Performed By: #### C VDTBH #### [facility] [address] [place] [address] Dr. Sheela Zhang EO # 0.0 103/ul Normal 0.0-0.7 [facility] Comment on above: Performed By: #### C VDTBH #### [facility] [address] [place] [address] Dr. Sheela Zhang Eosinophils/100 WBC (Bld) 0.0 % Critically low 0.9-7.0 [facility] Comment on above: Performed By: #### C VDTBH #### [facility] [address] [place] [address] Dr. Sheela Zhang Erythrocyte distribution width (RBC) [Ratio] 13.3 % Normal 11.0-15.0 [facility] Comment on above: Performed By: #### C VDTBH #### [facility] [address] [place] [address] Dr. Sheela Zhang Hematocrit (Bld) [Volume fraction] 45.2 % Normal 42.0-54.0 [facility] Comment on above: Performed By: #### C VDTBH #### [facility] [address] [place] [address] Dr. Sheela Zhang Hemoglobin (Bld) [Mass/Vol] 15.4 g/dL Normal 14.0-18.0 [facility] Comment on above: Performed By: #### C VDTBH #### [facility] [address] [place] [address] Dr. Sheela Zhang IG # 0.04 10e3/ul Critically high 0.00-0.03 [facility] Comment on above: Performed By: #### C VDTBH #### [facility] [address] [place] [address] Dr. Sheela Zhang IG % 0.3 % Normal 0.0-0.5 [facility] Comment on above: Performed By: #### C VDTBH #### [facility] [address] [place] [address] Dr. Sheela Zhang LYMPH # 2.2 103/ul Normal 1.2-3.8 [facility] Comment on above: Performed By: #### C VDTBH #### [facility] [address] [place] [address] Dr. Sheela Zhang Lymphocytes/100 WBC (Bld) 17.4 % Critically low 20.5-60.0 [facility] Comment on above: Performed By: #### C VDTBH #### [facility] [address] [place] [address] Dr. Sheela Zhang MANUAL DIFF REQ NO Normal [facility] Comment on above: Performed By: #### C VDTBH #### [facility] [address] [place] [address] Dr. Sheela Zhang MCH (RBC) [Entitic mass] 29.2 pg Normal 25.9-34.0 [facility] Comment on above: Performed By: #### C VDTBH #### [facility] [address] [place] [address] Dr. Sheela Zhang MCHC (RBC) [Mass/Vol] 34.1 g/dL Normal 29.9-35.2 [facility] Comment on above: Performed By: #### C VDTBH #### [facility] [address] [place] [address] Dr. Sheela Zhang MCV (RBC) [Entitic vol] 85.6 fL Normal 80.0-94.0 [facility] Comment on above: Performed By: #### C VDTBH #### [facility] [address] [place] [address] Dr. Sheela Zhang MONO # 0.8 103/ul Normal 0.3-0.8 [facility] Comment on above: Performed By: #### C VDTBH #### [facility] [address] [place] [address] Dr. Sheela Zhang Monocytes/100 WBC (Bld) 6.1 % Normal 1.7-12.0 [facility] Comment on above: Performed By: #### C VDTBH #### [facility] [address] [place] [address] Dr. Sheela Zhang NEUT # 9.5 103/ul Critically high 1.4-6.5 [facility] Comment on above: Performed By: #### C VDTBH #### [facility] [address] [place] [address] Dr. Sheela Zhang Neutrophils/100 WBC (Bld) 76.0 % Critically high 43.0-75.0 [facility] Comment on above: Performed By: #### C VDTBH #### [facility] [address] [place] [address] Dr. Sheela Zhang Platelet mean volume (Bld) [Entitic vol] 9.7 fL Normal 9.5-13.5 [facility] Comment on above: Performed By: #### C VDTBH #### [facility] [address] [place] [address] Dr. Sheela Zhang PLT 273 103/ul Normal 150-450 [facility] Comment on above: Performed By: #### C VDTBH #### [facility] [address] [place] [address] Dr. Sheela Zhang RBC 5.28 106/ul Normal 4.70-6.10 [facility] Comment on above: Performed By: #### C VDTBH #### [facility] [address] [place] [address] Dr. Sheela Zhang WBC 12.4 103/ul Critically high 4.0-11.0 [facility] Rehabilitation Comment on above: Performed By: #### C VDTBH #### [facility] [address] [place] [address] CHEST WO CONon [...] MADDI BENTLEY Date: 2022-07-03 08:23 Normal [facility] Covid-19 PCR (CVDTBH)on 06-18 SARS-CoV-2 (COVID-19) RNA KOREY+probe Ql (Unsp spec) Detected Abnormal NOT DETECTED [facility] Comment on above: Result Comment: This test is not yet approved or cleared by the [place] FDA. When there are no FDA-approved or cleared tests available, and other criteria are met, FDA can make tests available under an emergency access mechanism called an Emergency Use Authorization (EUA). The EUA for this test is supported by the En[employer]isher of Health and Human Service's declaration that [...] used). Performed By: #### C VDTBH #### [facility] [address] [address] [address] Sheela Zhang POINT OF CARE GLUCOSEon 06-18 Glucose [Mass/Vol] 268 mg/dL Critically high -106 [facility] Comment on above: Performed By: #### C VDTBH #### [facility] [id number] Sheela Zhang Glucose [Mass/Vol] 258 mg/dL Critically high -106 [facility] Comment on above: Performed By: #### P OCGLUC ####[facility] [address] [place], [place] [address]KtDr. Sheela Zhang Glucose [Mass/Vol] 336 mg/dL Critically high 74-106 [facility] Comment on above: Performed By: #### P OCGLUC #### [facility] [address] [address] [address] Sheela Zhang Glucose [Mass/Vol] 403 mg/dL Critically high -106 [facility] Comment on above: Performed By: #### C VDTBH #### [facility] [address] [address] [address] Sheela Zhang Glucose [Mass/Vol] 458 mg/dL Critically high 74-106 [facility] Comment on above: Performed By: #### P OCGLUC ####[facility] [address] [address]Dr. Sheela Zhang PROF 14(COMP METB)on 023 Albumin [Mass/Vol] 4.0 g/dL Normal 3.4-5.0 [facility] Comment on above: Performed By: #### C VDTBH #### [facility] [address] [address] [address] Sheela Zhang Albumin/Globulin [Mass ratio] 1.1 {ratio} Normal [facility] Comment on above: Performed By: #### C VDTBH #### [facility] [address] [address] [address] Sheela Zhang ALP [Catalytic activity/Vol] 105 U/L Normal 46-116 [facility] Comment on above: Performed By: #### C VDTBH #### [facility] [address] [address] [address] Sheela Zhang ALT [Catalytic activity/Vol] 34 U/L Normal 16-63 [facility] Comment on above: Performed By: #### C VDTBH #### [facility] [address] [address] [address] Sheela Zhang Anion gap [Moles/Vol] 13.4 mmol/L Normal [facility] Comment on above: Performed By: #### C VDTBH #### [facility] [address] [address] [address] Sheela Zhang AST [Catalytic activity/Vol] 20 U/L Normal 15-37 [facility] Comment on above: Performed By: #### C VDTBH #### [facility] [address] [place] [address] Dr. Sheela Zhang Bilirubin [Mass/Vol] 0.3 mg/dL Normal 0.2-1.0 [facility] Comment on above: Performed By: #### C VDTBH #### [facility] [address] [place] [address] Dr. Sheela Zhang Calcium [Mass/Vol] 9.0 mg/dL Normal 8.5-10.1 [facility] Comment on above: Performed By: #### C VDTBH #### [facility] [address] [place] [address] Dr. Sheela Zhang Chloride [Moles/Vol] 97 mmol/L Critically low 98-107 [facility] Comment on above: Performed By: #### C VDTBH #### [facility] [address] [place] [address] Dr. Sheela Zhang CO2 [Moles/Vol] 28.2 mmol/L Normal 21.0-32.0 [facility] Comment on above: Performed By: #### C VDTBH #### [facility] [address] [place] [address] Dr. Sheela Zhang Creatinine [Mass/Vol] 1.15 mg/dL Normal 0.70-1.30 [facility] Comment on above: Performed By: #### C VDTBH #### [facility] [address] [place] [address] Dr. Sheela Zhang EGFR-AF NEPALESE >60 Normal >=60 [facility] Comment on above: Performed By: #### C VDTBH #### [facility] [address] [place] [address] Dr. Sheela Zhang EGFR-NON AF NEPALESE >60 Normal >=60 [facility] Comment on above: Performed By: #### C VDTBH #### [facility] [address] [place] [address] Dr. Sheela Zhang Globulin (S) [Mass/Vol] 3.5 g/dL Normal [facility] Comment on above: Performed By: #### C VDTBH #### [facility] [address] [address] [address] Sheela Zhang Glucose [Mass/Vol] 311 mg/dL Critically high 74-106 T [facility] Comment on above: Performed By: #### C VDTBH #### [facility] [address] [address] [address] Sheela Zhang Potassium [Moles/Vol] 3.6 mmol/L Normal 3.5-5.1 [facility] Comment on above: Performed By: #### C VDTBH #### [facility] [address] [address] [address] Sheela Zhang Protein [Mass/Vol] 7.5 g/dL Normal 6.4-8.2 [facility] Comment on above: Performed By: #### C VDTBH #### [facility] [address] [address] [address] Sheela Zhang Sodium [Moles/Vol] 135 mmol/L Critically low 136-145 Th [facility] Comment on above: Performed By: #### C VDTBH #### [facility] [address] [address] [address] Sheela Zhang Urea nitrogen [Mass/Vol] 18.0 mg/dL Normal 7.0-18.0 [facility] Comment on above: Performed By: #### C VDTBH #### [facility] [address] [address] [address] Sheela Zhang Urea nitrogen/Creatinine [Mass ratio] 15.7 mg/mg Normal [facility] Comment on above: Performed By: #### C VDTBH #### [facility] [address] [address] [address] Sheela Zhang SED RATE WESTERGRENon 2022 SED RATE 32 mm/hr Critically high <=20 [facility] Comment on above: Performed By: #### P SASC #### [facility] [address] [address] [address] Sheela Zhang ACETONE SERUMon 07-02-2022 ACETONE Negative Normal NEGATIVE [facility] Comment on above: Performed By: #### C VDTBH #### [facility] [address] [place] [address] Dr. Sheela Zhang CBC AUTO DIFFon 07-02-2022 BASO # 0.0 103/ul Normal 0.0-0.1 [facility] Comment on above: Performed By: #### C BC #### [facility] [address] [place] [address] Dr. Sheela Zhang Basophils/100 WBC (Bld) 0.1 % Critically low 0.2-2.0 [facility] Comment on above: Performed By: #### C BC #### [facility] [address] [place] [address] Dr. Sheela Zhang EO # 0.0 103/ul Normal 0.0-0.7 [facility] Comment on above: Performed By: #### C BC #### [facility] [address] [place] [address] Dr. Sheela Zhang Eosinophils/100 WBC (Bld) 0.2 % Critically low 0.9-7.0 [facility] Comment on above: Performed By: #### C BC #### [facility] [address] [place] [address] Dr. Sheela Zhang Erythrocyte distribution width (RBC) [Ratio] 13.2 % Normal 11.0-15.0 [facility] Comment on above: Performed By: #### C BC #### [facility] [address] [place] [address] Dr. Sheela Zhang Hematocrit (Bld) [Volume fraction] 46.6 % Normal 42.0-54.0 [facility] Comment on above: Performed By: #### C BC #### [facility] [address] [place] [address] Dr. Sheela Zhang Hemoglobin (Bld) [Mass/Vol] 16.0 g/dL Normal 14.0-18.0 [facility] Comment on above: Performed By: #### C BC #### [facility] [address] [place] [address] Dr. Sheela Zhang IG # 0.04 10e3/ul Critically high 0.00-0.03 [facility] Comment on above: Performed By: #### C BC #### [facility] [address] [place] [address] Dr. Sheela Zhang IG % 0.4 % Normal 0.0-0.5 [facility] Comment on above: Performed By: #### C BC #### [facility] [address] [place] [address] Dr. Sheela hZang LYMPH # 1.4 103/ul Normal 1.2-3.8 [facility] Comment on above: Performed By: #### C BC #### [facility] [address] [place] [address] Dr. Sheela Zhagn Lymphocytes/100 WBC (Bld) 15.8 % Critically low 20.5-60.0 [facility] Comment on above: Performed By: #### C BC #### [facility] [address] [place] [address] Dr. Sheela Zhang MANUAL DIFF REQ NO Normal [facility] Comment on above: Performed By: #### C BC #### [facility] [address] [place] [address] Dr. Sheela Zhang MCH (RBC) [Entitic mass] 29.5 pg Normal 25.9-34.0 [facility] Comment on above: Performed By: #### C BC #### [facility] [address] [place] [address] Dr. Sheela Zhang MCHC (RBC) [Mass/Vol] 34.3 g/dL Normal 29.9-35.2 [facility] Comment on above: Performed By: #### C BC #### [facility] [address] [place] [address] Dr. Sheela Zhang MCV (RBC) [Entitic vol] 86.0 fL Normal 80.0-94.0 [facility] Comment on above: Performed By: #### C BC #### [facility] [address] [place] [address] Dr. Sheela Zhang MONO # 0.4 103/ul Normal 0.3-0.8 [facility] Comment on above: Performed By: #### C BC #### [facility] [address] [place] [address] Dr. Sheela Zhang Monocytes/100 WBC (Bld) 4.6 % Normal 1.7-12.0 [facility] Comment on above: Performed By: #### C BC #### [facility] [address] [place] [address] Dr. Sheela Zhang NEUT # 7.1 103/ul Critically high 1.4-6.5 [facility] Comment on above: Performed By: #### C BC #### [facility] [address] [place] [address] Dr. Sheela Zhang Neutrophils/100 WBC (Bld) 78.9 % Critically high 43.0-75.0 [facility] Comment on above: Performed By: #### C BC #### [facility] [address] [place] [address] Dr. Sheela Zhang Platelet mean volume (Bld) [Entitic vol] 10.1 fL Normal 9.5-13.5 [facility] Comment on above: Performed By: #### C BC #### [facility] [address] [place] [address] Dr. Sheela Zhang PLT 269 103/ul Normal 150-450 [facility] Comment on above: Performed By: #### C BC #### [facility] [address] [place] [address] Dr. Sheela Zhang RBC 5.42 106/ul Normal 4.70-6.10 [facility] Comment on above: Performed By: #### C BC #### [facility] [address] [place] [address] Dr. Sheela Zhang WBC 8.9 103/ul Normal 4.0-11.0 [facility] Comment on above: Performed By: #### C BC #### [facility] [address] [place] [address] Dr. Sheela Zhang ER URINE PROFILEon 3 Bilirubin Ql (U) Negative Normal NEGATIVE [facility] Comment on above: Performed By: #### E RUR ####[facility] [address] [place], [place] [address]Dr. Aissatouisidro Zhang Clarity (U) CLEAR Normal CLEAR [facility] Comment on above: Performed By: #### E RUR ####[facility] [address] [place], [place] [address]Dr. Aissatouisidro Zhang Color (U) LT. YELLOW Normal YELLOW [facility] Comment on above: Performed By: #### E RUR ####[facility] [address] [place], [place] [address]Dr. Sheela Zhang ERUAHD A micrscopic examination will be performed if indicated. Normal [facility] Comment on above: Performed By: #### E RUR ####[facility] [address] [place], [place] [address]Dr. Sheela Zhang Glucose Ql (U) >1000 Abnormal NEGATIVE [facility] Comment on above: Performed By: #### E RUR ####[facility] [address] [place], [place] [address]Dr. Aissatouisidro Vicente Hemoglobin Ql (U) Negative Normal NEGATIVE [facility] Comment on above: Performed By: #### E RUR ####[facility] [address] [place], [place] [address]Dr. Aissatouisidro Vicente Ketones Ql (U) Negative Normal NEGATIVE [facility] Comment on above: Performed By: #### E RUR ####[facility] [address] [place], [place] [address]Dr. Sheela Zhang LEUKOCYTES Negative Normal NEGATIVE [facility] Comment on above: Performed By: #### E RUR ####[facility] [address] [place], [place] [address]Dr. Sheela Zhang Nitrite Ql (U) Negative Normal NEGATIVE [facility] Comment on above: Performed By: #### E RUR ####[facility] [address] [place], [place] [address]Dr. Sheela Zhang pH (U) 5.5 [pH] Normal 5-9 [facility] Comment on above: Performed By: #### E RUR ####[facility] [address] [address]Dr. Sheela Zhang SPEC GRAVITY <=1.005 Abnormal 1.005-<=1.025 [facility] Comment on above: Performed By: #### E RUR ####[facility] [address] [address]Dr. Sheela Zhang UA PROTEIN Negative Normal NEGATIVE/ TRACE [facility] Comment on above: Performed By: #### E RUR ####[facility] [address] [address]Dr. Sheela Zhang UR MICRO IND NOT INDICATED Normal [facility] Comment on above: Performed By: #### E RUR ####[facility] [address] [address]Dr. Sheela Zhang Urobilinogen Qn (U) 0.2 {Emanuel'U}/dL Normal 0.2 - 1. 0 [facility] Comment on above: Performed By: #### E RUR ####[facility] [address] [address]Dr. Sheela Zhang LACTATE/LACTIC ACIDon 2022 Lactate [Moles/Vol] 3.7 mmol/L Critically high 0.4-1.9 [facility] Comment on above: Performed By: #### L ACT ####[facility] [address] [address]Dr. Sheela Zhang Lactate [Moles/Vol] 4.5 mmol/L Critically high 0.4-1.9 [facility] Comment on above: Performed By: #### L ACT #### [facility] [address] [address] [address] Sheela Zhang LIPASEon 07-02-2022 Lipase [Catalytic activity/Vol] 95.0 U/L Normal 73.0-393.0 [facility] Comment on above: Performed By: #### C MP, HSTROPN, LIPA ####[facility] [address] [address]DrDaynaara Zhang PH VENOUS BLOODon 07-02-2022 PCO2 VENOUS 34.4 mmHg Critically low 40.0-52.0 [facility] Comment on above: Performed By: #### P HVEN ####[facility] [address] [address]DrDayanara Zhang pH VENOUS 7.387 Normal 7.330-7.430 [facility] Comment on above: Performed By: #### P HVEN ####[facility] [address] [address]DrDayanara Zhang POINT OF CARE GLUCOSEon 06-18 Glucose [Mass/Vol] 518 mg/dL Critically high 74-106 [facility] Comment on above: Result Comment: Prev iously Confirmed Performed By: #### P OCGLUC ####[facility] [address] [address]DrDayanara Zhang POCGLUC >600 Critically high 74-106 [facility] Comment on above: Result Comment: Prev iously Confirmed Performed By: #### C VDTBH #### [facility] [address] [address] [address] Sheela Zhang POCGLUC >600 Critically high 74-106 [facility] Comment on above: Result Comment: Prev iously Confirmed Performed By: #### P OCGLUC ####[facility] [address] [place], [place] [address]DrDayanara Zhang PROF 14(COMP METB)on 023 Albumin [Mass/Vol] 4.0 g/dL Normal 3.4-5.0 [facility] Comment on above: Performed By: #### C FATUMA, HSTROPN, LIPA ####[facility] [address] [address]DrDayanara Zhang Albumin/Globulin [Mass ratio] 1.1 {ratio} Normal [facility] Comment on above: Performed By: #### C MP, HSTROPN, LIPA ####[facility] [address] [address]DrDayanara Zhang ALP [Catalytic activity/Vol] 114 U/L Normal 46-116 [facility] Comment on above: Performed By: #### C MP, HSTROPN, LIPA ####[facility] [address] [address]Dr. Sheela Zhang ALT [Catalytic activity/Vol] 36 U/L Normal 16-63 [facility] Comment on above: Performed By: #### C MP, HSTROPN, LIPA ####[facility] [address] [address]Dr. Sheela Zhang Anion gap [Moles/Vol] 18.1 mmol/L Normal [facility] Comment on above: Performed By: #### C MP, HSTROPN, LIPA ####[facility] [address] [place], [place] [address]Dr. Sheela Zhang AST [Catalytic activity/Vol] 15 U/L Normal 15-37 [facility] Comment on above: Performed By: #### C MP, HSTROPN, LIPA ####[facility] [address] [place], [place] [address]Dr. Sheela Zhang Bilirubin [Mass/Vol] 0.4 mg/dL Normal 0.2-1.0 [facility] Comment on above: Performed By: #### C MP, HSTROPN, LIPA ####[facility] [address] [place], [place] [address]Dr. Sheela Zhang Calcium [Mass/Vol] 9.1 mg/dL Normal 8.5-10.1 [facility] Comment on above: Performed By: #### C MP, HSTROPN, LIPA ####[facility] [address] [place], [place] [address]Dr. Sheela Zhang Chloride [Moles/Vol] 92 mmol/L Critically low 98-107 [facility] Comment on above: Performed By: #### C MP, HSTROPN, LIPA ####[facility] [address] [place], [place] [address]Dr. Sheela Zhang CO2 [Moles/Vol] 23.7 mmol/L Normal 21.0-32.0 [facility] Comment on above: Performed By: #### C MP, HSTROPN, LIPA ####[facility] [address] [address]Dr. Sheela Zhang Creatinine [Mass/Vol] 1.53 mg/dL Critically high 0.70-1.30 [facility] Comment on above: Performed By: #### C MP, HSTROPN, LIPA ####[facility] [address] [address]Dr. Sheela Zhang EGFR-AF NEPALESE 58 mL/min/1.73m2 Critically low >=60 [facility] Comment on above: Performed By: #### C MP, HSTROPN, LIPA ####[facility] [address] [address]Dr. Sheela Zhang EGFR-NON AF NEPALESE 48 mL/min/1.73m2 Critically low >=60 [facility] Comment on above: Performed By: #### C MP, HSTROPN, LIPA ####[facility] [address] [address]Dr. Sheela Zhang Globulin (S) [Mass/Vol] 3.7 g/dL Normal [facility] Comment on above: Performed By: #### C MP, HSTROPN, LIPA ####[facility] [address] [address]Dr. Sheela Zhang Glucose [Mass/Vol] 669 mg/dL Critically high 74-106 T [facility] Comment on above: Performed By: #### C MP, HSTROPN, LIPA ####[facility] [address] [address]Dr. Sheela Zhang Potassium [Moles/Vol] 3.8 mmol/L Normal 3.5-5.1 [facility] Comment on above: Performed By: #### C MP, HSTROPN, LIPA ####[facility] [address] [address]Dr. Sheela Zhang Protein [Mass/Vol] 7.7 g/dL Normal 6.4-8.2 [facility] Comment on above: Performed By: #### C MP, HSTROPN, LIPA ####[facility] [address] [id number]. Sheela Zhang Sodium [Moles/Vol] 130 mmol/L Critically low 136-145 Th [facility] Comment on above: Performed By: #### C MP, HSTROPN, LIPA ####[facility] [address] [place], [place] [address]Xe. Sheela Zhang Urea nitrogen [Mass/Vol] 24.0 mg/dL Critically high 7.0-18.0 [facility] Comment on above: Performed By: #### C MP, HSTROPN, LIPA ####[facility] [address] [id number]. Sheela Zhang Urea nitrogen/Creatinine [Mass ratio] 15.7 mg/mg Normal [facility] Comment on above: Performed By: #### C MP, HSTROPN, LIPA ####[facility] [address] [address]Dr. Sheela Zhang TROPONIN, HIGH SENSITIVITYon 07-02-2022 HSTROP 15.7 pg/mL Normal 4.0-76.1 [facility] Comment on above: Result Comment: CUT- OFF POINTS HAVE BEEN ESTABLISHED BASED ON THE FOURTH UNIVERSAL DEFINITIONS OF MYOCARDIAL INFARCTION. THE UPPER REFERENCE LIMIT (URL) OF TROPONIN, DEFINED THE 99TH PERCENTILE OF cTnI DISTRIBUTION IN A REFERENCE POPULATION, HAS BEEN CONFIRMED THE DECISION THRESHOLD FOR UT DIAGNOSIS. Performed By: #### C MP, HSTROPN, LIPA ####[facility] [address] [id number]. Sheela Zhang XR CHEST 1 Von 07-02-2022 [...] Amauri LOPEZ Date: 2022-07-02 19:37 Normal [facility] TESTOSTERONE, TOTALon 2022 Testosterone [Mass/Vol] 259 ng/dL Critically low 264-916 [facility] Comment on above: Result Comment: Adul t male reference interval is based on a population of healthy nonobese males (BMI <30) between 19 and 39 years old. [place] et.al. JCEM 2017,102;6537-0475. PMID: [id number]. Performed By: #### C VDTBH #### [facility] [address] [place] [address] Dr. Sheela Zhang CBC AUTO DIFFon 06-24-2022 BASO # 0.1 103/ul Normal 0.0-0.1 [facility] Comment on above: Performed By: #### P SASC #### [facility] [address] [place] [address] Dr. Sheela Zhang Basophils/100 WBC (Bld) 0.9 % Normal 0.2-2.0 [facility] Comment on above: Performed By: #### P SASC #### [facility] [address] [place] [address] Dr. Sheela Zhang EO # 0.3 103/ul Normal 0.0-0.7 [facility] Comment on above: Performed By: #### P SASC #### [facility] [address] [address] [address] Sheela Zhang Eosinophils/100 WBC (Bld) 2.4 % Normal 0.9-7.0 [facility] Comment on above: Performed By: #### P SASC #### [facility] [address] [place] [address] Dr. Sheela Zhang Erythrocyte distribution width (RBC) [Ratio] 13.7 % Normal 11.0-15.0 [facility] Comment on above: Performed By: #### P SASC #### [facility] [address] [place] [address] Dr. Sheela Zhang Hematocrit (Bld) [Volume fraction] 51.2 % Normal 42.0-54.0 [facility] Comment on above: Performed By: #### P SASC #### [facility] [address] [place] [address] Dr. Sheela Zhang Hemoglobin (Bld) [Mass/Vol] 16.6 g/dL Normal 14.0-18.0 [facility] Comment on above: Performed By: #### P SASC #### [facility] [address] [place] [address] Dr. Sheela Zhang IG # 0.06 10e3/ul Critically high 0.00-0.03 [facility] Comment on above: Performed By: #### P SASC #### [facility] [address] [place] [address] Dr. Sheela Zhang IG % 0.5 % Normal 0.0-0.5 [facility] Comment on above: Performed By: #### P SASC #### [facility] [address] [place] [address] Dr. Sheela Zhang LYMPH # 3.2 103/ul Normal 1.2-3.8 [facility] Comment on above: Performed By: #### P SASC #### [facility] [address] [place] [address] Dr. Sheela Zhang Lymphocytes/100 WBC (Bld) 28.8 % Normal 20.5-60.0 [facility] Comment on above: Performed By: #### P SASC #### [facility] [address] [place] [address] Dr. Sheela Zhang MANUAL DIFF REQ NO Normal [facility] Comment on above: Performed By: #### P SASC #### [facility] [address] [place] [address] Dr. Sheela Zhang MCH (RBC) [Entitic mass] 29.1 pg Normal 25.9-34.0 [facility] Comment on above: Performed By: #### P SASC #### [facility] [address] [place] [address] Dr. Sheela Zhang MCHC (RBC) [Mass/Vol] 32.4 g/dL Normal 29.9-35.2 [facility] Comment on above: Performed By: #### P SASC #### [facility] [address] [place] [address] Dr. Sheela Zhang MCV (RBC) [Entitic vol] 89.7 fL Normal 80.0-94.0 [facility] Comment on above: Performed By: #### P SASC #### [facility] [address] [address] [address] Sheela Zhang MONO # 0.9 103/ul Critically high 0.3-0.8 [facility] Comment on above: Performed By: #### P SASC #### [facility] [address] [place] [address] Dr. Sheela Zhang Monocytes/100 WBC (Bld) 8.3 % Normal 1.7-12.0 [facility] Comment on above: Performed By: #### P SASC #### [facility] [address] [place] [address] Dr. Sheela Zhang NEUT # 6.7 103/ul Critically high 1.4-6.5 [facility] Comment on above: Performed By: #### P SASC #### [facility] [address] [place] [address] Dr. Sheela Zhang Neutrophils/100 WBC (Bld) 59.1 % Normal 43.0-75.0 [facility] Comment on above: Performed By: #### P SASC #### [facility] [address] [place] [address] Dr. Sheela Zhang Platelet mean volume (Bld) [Entitic vol] 10.2 fL Normal 9.5-13.5 [facility] Comment on above: Performed By: #### P SASC #### [facility] [address] [place] [address] Dr. Sheela Zhang PLT 269 103/ul Normal 150-450 [facility] Comment on above: Performed By: #### P SASC #### [facility] [address] [place] [address] Dr. Sheela Zhang RBC 5.71 106/ul Normal 4.70-6.10 [facility] Comment on above: Performed By: #### P SASC #### [facility] [address] [address] [address] Sheela Zhang WBC 11.3 103/ul Critically high 4.0-11.0 [facility] Comment on above: Performed By: #### P SASC #### [facility] [address] [address] [address] Sheela Zhang GLYCOHEMOGLOBIN A1Con 2022 ADA RECOMMENDATION SEE BELOW Normal [facility] Comment on above: Result Comment: ADA RECOMMENDED LIMIT 4.0 - 6.0 ADA THERAPEUTIC TARGET < 7.0 ACTION SUGGESTED > 7.0 Performed By: #### A 1C #### [facility] [address] [place] [address] Dr. Sheela Zhang Glucose [Mass/Vol] 229 mg/dL Normal [facility] Comment on above: Performed By: #### A 1C #### [facility] [address] [place] [address] Dr. Sheela Zhang HbA1c (Bld) [Mass fraction] 9.6 % Critically high 4.5-6.2 [facility] Comment on above: Performed By: #### A 1C #### [facility] [address] [place] [address] Dr. Sheela Zhang LIPID PROFILEon 06-24-2022 CHOL-HDL RATIO NORM SEE BELOW Normal [facility] Comment on above: Result Comment: 3.3 - 4.4 LOW RISK 4.4 - 7.1 AVERAGE RISK 7.1 - 11.0 MODERATE RISK >11.0 HIGH RISK Performed By: #### P SASC #### [facility] [address] [address] [address] Sheela Zhang Cholesterol [Mass/Vol] 154 mg/dL Normal <=200 [facility] Comment on above: Performed By: #### P SASC #### [facility] [address] [address] [address] Sheela Zhang Cholesterol in HDL [Mass/Vol] 34 mg/dL Critically low 40-60 [facility] Comment on above: Performed By: #### P SASC #### [facility] [address] [address] [address] Sheela Zhang Cholesterol in LDL [Mass/Vol] 64.6 mg/dL Normal [facility] Comment on above: Performed By: #### P SASC #### [facility] [address] [address] [address] Sheela Zhang Cholesterol.total/Ch olesterol in HDL [Mass ratio] 4.5 {ratio} Normal [facility] Comment on above: Performed By: #### P SASC #### [facility] [address] [address] [address] Sheela Zhang HDL NORMAL > or = 60 mg/dl - LO W CARDIOVASCULAR RISK <40 mg/dl - HIGH CARDIOVASCULAR RISK Normal [facility] Comment on above: Performed By: #### P SASC #### [facility] [address] [address] [address] Sheela Zhang LDL CALC NORMAL SEE BELOW Normal [facility] Comment on above: Result Comment: <100 mg/dl OPTIMAL 100 - 129 mg/dl NEAR OR ABOVE OPTIMAL 130 - 159 mg/dl BORDERLINE HIGH 160 - 189 mg/dl HIGH >190 mg/dl VERY HIGH Performed By: #### P SASC #### [facility] [address] [place] [address] Dr. Sheela Zhang Triglyceride [Mass/Vol] 277 mg/dL Critically high <=150 [facility] Comment on above: Performed By: #### P SASC #### [facility] [address] [place] [address] Dr. Sheela Zhang VLDL CALC 55.4 mg/dL Normal [facility] Comment on above: Performed By: #### P SASC #### [facility] [address] [address] [address] Sheela Zhang LIVER PROFILEon 06-24-2022 Albumin [Mass/Vol] 4.4 g/dL Normal 3.4-5.0 [facility] Comment on above: Performed By: #### P SASC #### [facility] [address] [address] [address] Sheela Zhang Albumin/Globulin [Mass ratio] 1.1 {ratio} Normal [facility] Comment on above: Performed By: #### P SASC #### [facility] [address] [place] [address] Dr. Sheela Zhang ALP [Catalytic activity/Vol] 103 U/L Normal 46-116 [facility] Comment on above: Performed By: #### P SASC #### [facility] [address] [address] [address] Sheela Zhang ALT [Catalytic activity/Vol] 43 U/L Normal 16-63 [facility] Comment on above: Performed By: #### P SASC #### [facility] [address] [place] [address] Dr. Sheela Zhang AST [Catalytic activity/Vol] 24 U/L Normal 15-37 [facility] Comment on above: Performed By: #### P SASC #### [facility] [address] [place] [address] Dr. Sheela Zhang BILI, CONJUGATED 0.1 mg/dL Normal 0.0-0.2 [facility] Comment on above: Performed By: #### P SASC #### [facility] [address] [place] [address] Dr. Sheela Zhang Bilirubin [Mass/Vol] 0.4 mg/dL Normal 0.2-1.0 [facility] Comment on above: Performed By: #### P SASC #### [facility] [address] [place] [address] Dr. Sheela Zhang Globulin (S) [Mass/Vol] 4.0 g/dL Normal [facility] Comment on above: Performed By: #### P SASC #### [facility] [address] [place] [address] Dr. Sheela Zhang Protein [Mass/Vol] 8.4 g/dL Critically high 6.4-8.2 [facility] Comment on above: Performed By: #### P SASC #### [facility] [address] [place] [address] Dr. Sheela Zhang MICROALBUMIN, RAND URon 02-0 mALB 3.0 mg/L Normal <=30.0 [facility] Comment on above: Performed By: #### P SASC #### [facility] [address] [address] [address] Sheela Zhang PROF CHEM 8 (BAS METB)on Anion gap [Moles/Vol] 14.2 mmol/L Normal [facility] Comment on above: Performed By: #### P SASC #### [facility] [address] [address] [address] Sheela Zhang Calcium [Mass/Vol] 10.1 mg/dL Normal 8.5-10.1 [facility] Comment on above: Performed By: #### P SASC #### [facility] [address] [place] [address] Dr. Sheela Zhang Chloride [Moles/Vol] 99 mmol/L Normal 98-107 [facility] Comment on above: Performed By: #### P SASC #### [facility] [address] [address] [address] Sheela Zhang CO2 [Moles/Vol] 29.4 mmol/L Normal 21.0-32.0 [facility] Comment on above: Performed By: #### P SASC #### [facility] [address] [place] [address] Dr. Sheela Zhang Creatinine [Mass/Vol] 1.04 mg/dL Normal 0.70-1.30 [facility] Comment on above: Performed By: #### P SASC #### [facility] [address] [address] [address] Sheela Zhang EGFR-AF NEPALESE >60 Normal >=60 [facility] Comment on above: Performed By: #### P SASC #### [facility] [address] [address] [address] Sheela Zhang EGFR-NON AF NEPALESE >60 Normal >=60 [facility] Comment on above: Performed By: #### P SASC #### [facility] [address] [address] [address] Sheela Zhang Glucose [Mass/Vol] 233 mg/dL Critically high 74-106 T [facility] Comment on above: Performed By: #### P SASC #### [facility] [address] [address] [address] Sheela Zhang Potassium [Moles/Vol] 3.6 mmol/L Normal 3.5-5.1 [facility] Comment on above: Performed By: #### P SASC #### [facility] [address] [address] [address] Sheela Zhang Sodium [Moles/Vol] 139 mmol/L Normal 136-145 [facility] Comment on above: Performed By: #### P SASC #### [facility] [address] [place] [address] Dr. Sheela Zhang Urea nitrogen [Mass/Vol] 12.0 mg/dL Normal 7.0-18.0 [facility] Comment on above: Performed By: #### P SASC #### [facility] [address] [place] [address] Dr. Sheela Zhang Urea nitrogen/Creatinine [Mass ratio] 11.5 mg/mg Normal [facility] Comment on above: Performed By: #### P SASC #### [facility] [address] [place] [address] Dr. Sheela Zhang TSHon 06-24-2022 TSH 1.570 uIU/mL Normal 0.358-3.740 [facility] Comment on above: Performed By: #### P SASC #### [facility] [address] [place] [address] Dr. Sheela Zhang CBC AUTO DIFFon 05-05-2022 BASO # 0.1 103/ul Normal 0.0-0.1 [facility] Comment on above: Performed By: #### C BC ####[facility] [address] [address]Dr. Sheela Zhang Basophils/100 WBC (Bld) 0.8 % Normal 0.2-2.0 [facility] Comment on above: Performed By: #### C BC ####[facility] [address] [id number]. Sheela Zhang EO # 0.4 103/ul Normal 0.0-0.7 [facility] Comment on above: Performed By: #### C BC ####[facility] [address] [id number]. Sheela Zhang Eosinophils/100 WBC (Bld) 2.7 % Normal 0.9-7.0 [facility] Comment on above: Performed By: #### C BC ####[facility] [address] [place], [place] [address]Dr. Sheela Zhang Erythrocyte distribution width (RBC) [Ratio] 12.8 % Normal 11.0-15.0 [facility] Comment on above: Performed By: #### C BC ####[facility] [address] [place], [place] [address]Dr. Sheela Zhang Hematocrit (Bld) [Volume fraction] 50.3 % Normal 42.0-54.0 [facility] Comment on above: Performed By: #### C BC ####[facility] [address] [place], [place] [address]Dr. Sheela Zhang Hemoglobin (Bld) [Mass/Vol] 17.0 g/dL Normal 14.0-18.0 [facility] Comment on above: Performed By: #### C BC ####[facility] [address] [place], [place] [address]Dr. Sheela Zhang IG # 0.05 10e3/ul Critically high 0.00-0.03 [facility] Comment on above: Performed By: #### C BC ####[facility] [address] [place], [place] [address]Dr. Sheela Zhang IG % 0.4 % Normal 0.0-0.5 [facility] Comment on above: Performed By: #### C BC ####[facility] [address] [place], [place] [address]Dr. Sheela Zhang LYMPH # 3.6 103/ul Normal 1.2-3.8 [facility] Comment on above: Performed By: #### C BC ####[facility] [address] [id number]. Sheela Vicente Lymphocytes/100 WBC (Bld) 26.0 % Normal 20.5-60.0 [facility] Comment on above: Performed By: #### C BC ####[facility] [address] [id number]. Sheela Zhang MANUAL DIFF REQ NO Normal [facility] Comment on above: Performed By: #### C BC ####[facility] [address] [id number]. Sheela Vicente MCH (RBC) [Entitic mass] 30.0 pg Normal 25.9-34.0 [facility] Comment on above: Performed By: #### C BC ####[facility] [address] [place], [place] [address]Dr. Sheela Zhang MCHC (RBC) [Mass/Vol] 33.8 g/dL Normal 29.9-35.2 [facility] Comment on above: Performed By: #### C BC ####[facility] [address] [place], [place] [address]Dr. Aissatouisidro Zhang MCV (RBC) [Entitic vol] 88.7 fL Normal 80.0-94.0 [facility] Comment on above: Performed By: #### C BC ####[facility] [address] [address]Dr. Sheela Zhang MONO # 1.2 103/ul Critically high 0.3-0.8 [facility] Comment on above: Performed By: #### C BC ####[facility] [address] [place], [place] [address]Dr. Sheela Zhang Monocytes/100 WBC (Bld) 8.4 % Normal 1.7-12.0 [facility] Comment on above: Performed By: #### C BC ####[facility] [address] [place], [place] [address]Dr. Sheela Zhang NEUT # 8.6 103/ul Critically high 1.4-6.5 [facility] Comment on above: Performed By: #### C BC ####[facility] [address] [address]Dr. Sehela Zhang Neutrophils/100 WBC (Bld) 61.7 % Normal 43.0-75.0 [facility] Comment on above: Performed By: #### C BC ####[facility] [address] [address]Dr. Sheela Zhang Platelet mean volume (Bld) [Entitic vol] 9.6 fL Normal 9.5-13.5 [facility] Comment on above: Performed By: #### C BC ####[facility] [address] [address]Dr. Sheela Zhang PLT 275 103/ul Normal 150-450 [facility] Comment on above: Performed By: #### C BC ####[facility] [address] [address]Dr. Sheela Zhang RBC 5.67 106/ul Normal 4.70-6.10 [facility] Comment on above: Performed By: #### C BC ####[facility] [address] [address]Dr. Sheela Zhang WBC 13.9 103/ul Critically high 4.0-11.0 [facility] Comment on above: Performed By: #### C BC ####[facility] [address] [address]Dr. Sheela Zhang PROF 14(COMP METB)on 022 Albumin [Mass/Vol] 4.3 g/dL Normal 3.4-5.0 [facility] Comment on above: Performed By: #### T VICENTE CARRENO, CMP ####[facility] [address] [address]Dr. Sheela Zhang Albumin/Globulin [Mass ratio] 1.1 {ratio} Normal [facility] Comment on above: Performed By: #### T CASTILLO CARRENOTRANDRY, CMP ####[facility] [address] [id number]. Sheela Zhang ALP [Catalytic activity/Vol] 118 U/L Critically high 46-116 [facility] Comment on above: Performed By: #### T CASTILLO CARRENOTROPKuldeep, CMP ####[facility] [address] [address]Dr. Sheela Zhang ALT [Catalytic activity/Vol] 30 U/L Normal 16-63 [facility] Comment on above: Performed By: #### T CASTILLO CARRENOTROPN, CMP ####[facility] [address] [address]Dr. Sheela Zhang Anion gap [Moles/Vol] 11.6 mmol/L Normal [facility] Comment on above: Performed By: #### T CASTILLO CARRENOTRANDRY, CMP ####[facility] [address] [place], [place] [address]Dr. Sheela Zhang AST [Catalytic activity/Vol] 19 U/L Normal 15-37 [facility] Comment on above: Performed By: #### T CASTILLO CARRENOTRANDRY, CMP ####[facility] [address] [place], [place] [address]Dr. Sheela Zhang Bilirubin [Mass/Vol] 0.3 mg/dL Normal 0.2-1.0 [facility] Comment on above: Performed By: #### T VICENTE CARRENO, CMP ####[facility] [address] [address]Dr. Sheela Zhang Calcium [Mass/Vol] 9.6 mg/dL Normal 8.5-10.1 [facility] Comment on above: Performed By: #### T CASTILLO CARRENOTRANDRY, CMP ####[facility] [address] [address]Dr. Sheela Zhang Chloride [Moles/Vol] 102 mmol/L Normal 98-107 [facility] Comment on above: Performed By: #### T VICENTE CARRENO, CMP ####[facility] [address] [address]Dr. Sheela Zhang CO2 [Moles/Vol] 28.5 mmol/L Normal 21.0-32.0 [facility] Comment on above: Performed By: #### T VICENTE CARRENO, CMP ####[facility] [address] [address]Dr. Sheela Zhang Creatinine [Mass/Vol] 0.92 mg/dL Normal 0.70-1.30 [facility] Comment on above: Performed By: #### T SH, HSTROPN, CMP ####[facility] [address] [address]Dr. Sheela Zhang EGFR-AF NEPALESE >60 Normal >=60 [facility] Comment on above: Performed By: #### T SH, HSTROPN, CMP ####[facility] [address] [address]Dr. Sheela Zhang EGFR-NON AF NEPALESE >60 Normal >=60 [facility] Comment on above: Performed By: #### T SH, HSTROPN, CMP ####[facility] [address] [address]Dr. Sheela Zhang Globulin (S) [Mass/Vol] 3.8 g/dL Normal [facility] Comment on above: Performed By: #### T SH, HSTROPN, CMP ####[facility] [address] [place], [place] [address]Dr. Sheela Zhang Glucose [Mass/Vol] 130 mg/dL Critically high 74-106 [facility] Comment on above: Performed By: #### T SH, HSTROPN, CMP ####[facility] [address] [address]Dr. Sheela Zhang Potassium [Moles/Vol] 4.1 mmol/L Normal 3.5-5.1 [facility] Comment on above: Performed By: #### T SH, HSTROPN, CMP ####[facility] [address] [address]Dr. Sheela Zhang Protein [Mass/Vol] 8.1 g/dL Normal 6.4-8.2 [facility] Comment on above: Performed By: #### T SH, HSTROPN, CMP ####[facility] [address] [place], [place] [address]Dr. Sheela Zhang Sodium [Moles/Vol] 138 mmol/L Normal 136-145 [facility] Comment on above: Performed By: #### T VICENTE CARRENO CMP ####[facility] [address] [place], [place] [address]Dr. Sheela Zhang Urea nitrogen [Mass/Vol] 11.0 mg/dL Normal 7.0-18.0 [facility] Comment on above: Performed By: #### T VICENTE CARRENO, CMP ####[facility] [address] [place], [place] [address]Dr. Sheela Zhang Urea nitrogen/Creatinine [Mass ratio] 12.0 mg/mg Normal [facility] Comment on above: Performed By: #### T VICENTE CARRENO CMP ####[facility] [address] [place], [place] [address]Dr. Sheela Zhang PROTIMEon 05-05-2022 INR Coag (PPP) [Relative time] 0.97 {INR} Normal [facility] Comment on above: Performed By: #### P T, PTT ####[facility] [address] [place], [place] [address]Dr. Sheela Zhang INR GUIDELINES SEE BELOW Normal [facility] Comment on above: Result Comment: FRANCISCO JAVIER RED INR: 2.0 - 3.0 CONDITIONS NOT LISTED BELOW 2.5 - 3.5 FOR PROSTHETIC HEART VALVE REPLACEMENT 2.5 - 3.5 RECURRENT THROMBOSIS Performed By: #### P T, PTT ####[facility] [address] [place], [place] [address]Dr. Sheela Zhang PT Coag (PPP) [Time] 10.5 s Normal 9.0-11.6 [facility] Comment on above: Performed By: #### P T, PTT ####[facility] [address] [place], [place] [address]Dr. Sheela Zhang PTTon 05-05-2022 aPTT Coag (Bld) [Time] 27.2 s Normal 22.3-36.2 [facility] Comment on above: Performed By: #### P T, PTT ####[facility] [address] [place], [place] [address]El. Sheela Zhang TROPONIN, HIGH SENSITIVITYon 05-05-2022 HSTROP 21.3 pg/mL Normal 4.0-76.1 [facility] Comment on above: Result Comment: CUT- OFF POINTS HAVE BEEN ESTABLISHED BASED ON THE FOURTH UNIVERSAL DEFINITIONS OF MYOCARDIAL INFARCTION. THE UPPER REFERENCE LIMIT (URL) OF TROPONIN, DEFINED THE 99TH PERCENTILE OF cTnI DISTRIBUTION IN A REFERENCE POPULATION, HAS BEEN CONFIRMED THE DECISION THRESHOLD FOR UT DIAGNOSIS. Performed By: #### T SH, HSTROPN, CMP ####[facility] [address] [place], [place] [address]SfDayanara Zhang TSHon 05-05-2022 TSH 2.155 uIU/mL Normal 0.358-3.740 [facility] Comment on above: Performed By: #### T SH, HSTROPN, CMP ####[facility] [address] [place], [place] [address]OgDr. Sheela Zhang XR CHEST 1 Von 05-05-2022 [...] JOHN BENTON Date: 2022-05-05 19:25 Normal [facility] CBC AUTO DIFFon 04-30-2022 BASO # 0.1 103/ul Normal 0.0-0.1 [facility] Comment on above: Performed By: #### C VDTBH #### [facility] [address] [address] [address] Sheela Zhang Basophils/100 WBC (Bld) 0.9 % Normal 0.2-2.0 [facility] Comment on above: Performed By: #### C VDTBH #### [facility] [address] [address] [address] Sheela Zhang EO # 0.2 103/ul Normal 0.0-0.7 [facility] Comment on above: Performed By: #### C VDTBH #### [facility] [address] [place] [address] Dr. Sheela Zhang Eosinophils/100 WBC (Bld) 1.7 % Normal 0.9-7.0 [facility] Comment on above: Performed By: #### C VDTBH #### [facility] [address] [place] [address] Dr. hSeela Zhang Erythrocyte distribution width (RBC) [Ratio] 13.0 % Normal 11.0-15.0 [facility] Comment on above: Performed By: #### C VDTBH #### [facility] [address] [place] [address] Dr. Sheela Zhang Hematocrit (Bld) [Volume fraction] 51.3 % Normal 42.0-54.0 [facility] Comment on above: Performed By: #### C VDTBH #### [facility] [address] [place] [address] Dr. Sheela Zhang Hemoglobin (Bld) [Mass/Vol] 17.2 g/dL Normal 14.0-18.0 [facility] Comment on above: Performed By: #### C VDTBH #### [facility] [address] [place] [address] Dr. Sheela Zhang IG # 0.08 10e3/ul Critically high 0.00-0.03 [facility] Comment on above: Performed By: #### C VDTBH #### [facility] [address] [place] [address] Dr. Sheela Zhang IG % 0.6 % Critically high 0.0-0.5 [facility] Comment on above: Performed By: #### C VDTBH #### [facility] [address] [place] [address] Dr. Sheela Zhang LYMPH # 3.2 103/ul Normal 1.2-3.8 [facility] Comment on above: Performed By: #### C VDTBH #### [facility] [address] [place] [address] Dr. Sheela Zhang Lymphocytes/100 WBC (Bld) 24.5 % Normal 20.5-60.0 [facility] Comment on above: Performed By: #### C VDTBH #### [facility] [address] [place] [address] Dr. Sheela Zhang MANUAL DIFF REQ NO Normal [facility] Comment on above: Performed By: #### C VDTBH #### [facility] [address] [place] [address] Dr. Sheela Zhang MCH (RBC) [Entitic mass] 29.5 pg Normal 25.9-34.0 [facility] Comment on above: Performed By: #### C VDTBH #### [facility] [address] [place] [address] Dr. Sheela Zhang MCHC (RBC) [Mass/Vol] 33.5 g/dL Normal 29.9-35.2 [facility] Comment on above: Performed By: #### C VDTBH #### [facility] [address] [place] [address] Dr. Sheela Zhang MCV (RBC) [Entitic vol] 88.0 fL Normal 80.0-94.0 [facility] Comment on above: Performed By: #### C VDTBH #### [facility] [address] [place] [address] Dr. Sheela Zhang MONO # 0.9 103/ul Critically high 0.3-0.8 [facility] Comment on above: Performed By: #### C VDTBH #### [facility] [address] [place] [address] Dr. Sheela Zhang Monocytes/100 WBC (Bld) 6.9 % Normal 1.7-12.0 [facility] Comment on above: Performed By: #### C VDTBH #### [facility] [address] [place] [address] Dr. Sheela Zhang NEUT # 8.7 103/ul Critically high 1.4-6.5 [facility] Comment on above: Performed By: #### C VDTBH #### [facility] [address] [place] [address] Dr. Sheela Zhang Neutrophils/100 WBC (Bld) 65.4 % Normal 43.0-75.0 [facility] Comment on above: Performed By: #### C VDTBH #### [facility] [address] [place] [address] Dr. Sheela Zhang Platelet mean volume (Bld) [Entitic vol] 10.0 fL Normal 9.5-13.5 [facility] Comment on above: Performed By: #### C VDTBH #### [facility] [address] [place] [address] Dr. Sheela Zhang PLT 285 103/ul Normal 150-450 [facility] Comment on above: Performed By: #### C VDTBH #### [facility] [address] [place] [address] Dr. Sheela Zhang RBC 5.83 106/ul Normal 4.70-6.10 [facility] Comment on above: Performed By: #### C VDTBH #### [facility] [address] [place] [address] Dr. Sheela Zhang WBC 13.2 103/ul Critically high 4.0-11.0 [facility] Comment on above: Performed By: #### C VDTBH #### [facility] [address] [place] [address] Dr. Sheela Zhang Covid-19 PCR ([facility])on 04-17 SARS-CoV-2 (COVID-19) RNA KOREY+probe Ql (Unsp spec) Not detected Normal NOT DETECTED [facility] Comment on above: Result Comment: This test is not yet approved or cleared by the [place] FDA. When there are no FDA-approved or cleared tests available, and other criteria are met, FDA can make tests available under an emergency access mechanism called an Emergency Use Authorization (EUA). The EUA for this test is supported by the [place] of Health and Human Service's (HHS's) declaration [...] SARS-CoV-2. Performed By: #### C VDTBH #### [facility] [address] [place] [address] Dr. Sheela Zhang INFLUENZA A AND B AGon 04-30 INFLUANE SEE BELOW Normal [facility] Comment on above: Result Comment: Nega tive for Flu A protein angiten. Infection due to Flu A cannot be ruled out. Flu A angiten in the sample may be below the detection limit of the test. Performed By: #### I NFLUAB #### [facility] [address] [place] [address] Dr. She[address] [facility] Normal [facility] Comment on above: Result Comment: Nega tive for Flu B protein antigen. Infection due to Flu B cannot be ruled out. Flu B antigen in the sample may be below the detection limit of the test. Performed By: #### I NFLUAB #### [facility] [address] [place] [address] Dr. Sheela Zhang INFLUENZA A AG Negative Normal NEGATIVE SEE COMMENT [facility] Comment on above: Performed By: #### I NFLUAB #### [facility] [address] [place] [address] Dr. Sheela Zhang INFLUENZA B AG Negative Normal NEGATIVE SEE COMMENT [facility] Comment on above: Performed By: #### I NFLUAB #### [facility] [address] [place] [address] Dr. Sheela Zhang INTERNAL CONTROLS Within Normal Limits Normal Wi thin Normal Limits [facility] Comment on above: Performed By: #### I NFLUAB #### [facility] [address] [place] [address] Dr. Sheela Zhang PROF CHEM 8 (BAS METB)on Anion gap [Moles/Vol] 14.1 mmol/L Normal [facility] Comment on above: Performed By: #### P SASC #### [facility] [address] [address] [address] Sheela Zhang Calcium [Mass/Vol] 9.7 mg/dL Normal 8.5-10.1 [facility] Comment on above: Performed By: #### P SASC #### [facility] [address] [address] [address] Sheela Zhang Chloride [Moles/Vol] 102 mmol/L Normal 98-107 [facility] Comment on above: Performed By: #### P SASC #### [facility] [address] [address] [address] Sheela Zhang CO2 [Moles/Vol] 26.5 mmol/L Normal 21.0-32.0 [facility] Comment on above: Performed By: #### P SASC #### [facility] [address] [address] [address] Sheela Zhang Creatinine [Mass/Vol] 0.90 mg/dL Normal 0.70-1.30 [facility] Comment on above: Performed By: #### P SASC #### [facility] [address] [address] [address] Sheela Zhang EGFR-AF NEPALESE >60 Normal >=60 [facility] Comment on above: Performed By: #### P SASC #### [facility] [address] [address] [address] Sheela Zhang EGFR-NON AF NEPALESE >60 Normal >=60 [facility] Comment on above: Performed By: #### P SASC #### [facility] [address] [address] [address] Sheela Zhang Glucose [Mass/Vol] 125 mg/dL Critically high 74-106 [facility] Comment on above: Performed By: #### P SASC #### [facility] [address] [address] [address] Sheela Zhang Potassium [Moles/Vol] 3.6 mmol/L Normal 3.5-5.1 [facility] Comment on above: Performed By: #### P SASC #### [facility] [address] [place], [place] [address] Dr. Sheela Zhang Sodium [Moles/Vol] 139 mmol/L Normal 136-145 [facility] Comment on above: Performed By: #### P SASC #### [facility] [address] [place], [place] [address] Dr. Sheela Zhang Urea nitrogen [Mass/Vol] 11.0 mg/dL Normal 7.0-18.0 [facility] Comment on above: Performed By: #### P SASC #### [facility] [address] [address] [address] Sheela Zhang Urea nitrogen/Creatinine [Mass ratio] 12.2 mg/mg Normal [facility] Comment on above: Performed By: #### P SASC #### [facility] [address] [address] [address] Sheela Zhang NM STRESS/REST MULTIon 02-05 NM STRESS/REST MULTI Patient: Toshia MURRAY. Exam Date: 02/05/2022 : 1970 Gender:M Ordering : DR BLAYNE LOVE . Admission #: [id number] Family : Order #: [id number] CLICK HERE TO VIEW EXAM RADIOLOGY REPORT [...] MD on 02/06/2022 at 10:51 Normal [facility] GLYCOHEMOGLOBIN A1Con 2021 ADA RECOMMENDATION SEE BELOW Normal [facility] Comment on above: Result Comment: ADA RECOMMENDED LIMIT 4.0 - 6.0 ADA THERAPEUTIC TARGET < 7.0 ACTION SUGGESTED > 7.0 Performed By: #### A 1C ####[facility] [address] [address]Dr. Sheela Zhang Glucose [Mass/Vol] 258 mg/dL Normal [facility] Comment on above: Performed By: #### A 1C ####[facility] [address] [place], [place] [address]Dr. Sheela Zhang HbA1c (Bld) [Mass fraction] 10.6 % Critically high 4.5-6.2 [facility] Comment on above: Performed By: #### A 1C ####[facility] [address] [place], [place] [address]Dr. Sheela Zhang XR FOOT SANIA MIN 3 [...] by: MERT BAH Date: 2021-08-29 13:51 Normal [facility] MRI ANKLE LT WO CONon 2021 [...] by: ROSEMARY ENG Date: 2021-08-17 12:14 Normal [facility] GLYCOHEMOGLOBIN A1Con 2021 ADA RECOMMENDATION ADA THERAPEUTIC TARG ET 6.0 - 7.0 ACTION SUGGESTED > 7.0 Normal [facility] Comment on above: Performed By: #### C VDTBH #### [facility] [address] [address] [address] Sheela Zhang Glucose [Mass/Vol] 186 mg/dL Normal [facility] Comment on above: Performed By: #### C VDTBH #### [facility] [address] [address] [address] Sheela Zhang HbA1c (Bld) [Mass fraction] 8.1 % Critically high <=6.0 [facility] Comment on above: Performed By: #### C VDTBH #### [facility] [address] [address] [address] Sheela Zhang XR LSPINE 2_3 VIEWSon [...] by: MADDI BENTLEY Date: 2021-08-08 17:25 Normal [facility] Vital Signs Date Time Vital Sign Value Performing Clinician Jazmyne ball 05-02-2024 09:20-0500 Body height 182.9 cm Blayne Love MD Work Phone: [facility] 05-02-2024 09:20-0500 Body mass index (BMI) [Ratio] 42.86 kg/m2 Blayne Love MD Work Phone: [facility] 05-02-2024 09:20-0500 Body temperature 97.11 [degF] Blayne Love MD Work Phone: [facility] 05-02-2024 09:20-0500 Body weight 143.34 kg Blayne Love MD Work Phone: [facility] 05-02-2024 09:20-0500 Diastolic blood pressure 70 mm[Hg] Blayne Love MD Work Phone: [facility] 05-02-2024 09:20-0500 Heart rate 95 /min Blayne Love MD Work Phone: [facility] 05-02-2024 09:20-0500 Respiratory rate 18 /min Blayne Love MD Work Phone: [facility] 05-02-2024 09:20-0500 SaO2% (BldA) [Mass fraction] 96 % Blayne Love MD Work Phone: [facility] 05-02-2024 09:20-0500 Systolic blood pressure 128 mm[Hg] Blayne Love MD Work Phone: [facility] 02-08-2024 10:30-0400 Body height 182.9 cm Blayne Love MD Work Phone: [facility] 02-08-2024 10:30-0400 Body mass index (BMI) [Ratio] 41.37 kg/m2 Blayne Love MD Work Phone: [facility] 02-08-2024 10:30-0400 Body temperature 97.11 [degF] Blayne Love MD Work Phone: [facility] 02-08-2024 10:30-0400 Body weight 138.35 kg Blayne Love MD Work Phone: [facility] 02-08-2024 10:30-0400 Diastolic blood pressure 54 mm[Hg] Blayne Love MD Work Phone: [facility] 02-08-2024 10:30-0400 Heart rate 93 /min Blayne Love MD Work Phone: [facility] 02-08-2024 10:30-0400 Respiratory rate 20 /min Blayne Love MD Work Phone: [facility] 02-08-2024 10:30-0400 SaO2% (BldA) [Mass fraction] 98 % Blayne Love MD Work Phone: [facility] 02-08-2024 10:30-0400 Systolic blood pressure 98 mm[Hg] Blayne Love MD Work Phone: [facility] Healthcare Encounters Encounter Date Encounter Type Care Provider Facility Start: 05-02-2024 End: 05-02-2024 Bamboo flowsheet Blayne Love MD Work Phone: [facility] Start: 05-02-2024 End: 05-02-2024 Bamboo flowsheet Blayne Love MD Work Phone: [facility] Start: 05-02-2024 End: 05-02-2024 Office outpatient visit 25 minutes Blayne Love MD Work Phone: [facility] Comment on above: Type 2 diabetes leonardo itus with hyperglycemia, without long-term current use of insulin (CMS/HCC) (Primary Dx); Benign hypertension (CMS/HCC); Chronic bilateral thoracic back pain; Migraine without aura and with status migrainosus, not intractable (CMS/HCC); Chronic bilateral low back pain with bilateral sciatica Start: 05-02-2024 End: 05-02-2024 ambulatory BLAYNE LOVE Not Available Start: 04-11-2024 End: 04-11-2024 Orders Only Blayne Love MD Work Phone: [facility] Comment on above: Chronic migraine wit hout aura, not intractable, without status migrainosus (CMS/HCC); Chronic migraine without aura (CMS/HCC) Start: 04-08-2024 End: 04-19-2024 Refill Blayne Love MD Work Phone: [facility] Comment on above: Upper respiratory tr act infection, unspecified type (Primary Dx); Chronic migraine without aura, not intractable, without status migrainosus (CMS/HCC); Chronic migraine without aura (CMS/HCC); Primary osteoarthritis of ankles, bilateral Start: 03-22-2024 End: 03-22-2024 Refill Blayne Love MD Work Phone: [facility] Comment on above: Other specified abno rmal findings of blood chemistry Start: 03-21-2024 End: 03-21-2024 Refill Blayne Love MD Work Phone: [facility] Comment on above: 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, bilateral Start: 02-22-2024 End: 02-22-2024 Refill Blayne Love MD Work Phone: [facility] Comment on above: Chronic migraine wit hout aura, not intractable, without status migrainosus (CMS/HCC); Chronic migraine without aura (CMS/HCC) Start: 02-15-2024 End: 02-16-2024 Clinisync Result Encounter Blayne Love MD Work Phone: [facility] Unsolicited Start: 02-15-2024 End: 02-16-2024 Clinisync Result Encounter Blayne Love MD Work Phone: [facility] Unsolicited Start: 02-15-2024 End: 02-15-2024 Refill Blayne Love MD Work Phone: [facility] Comment on above: 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/HCC) (Primary Dx); Benign hypertension (CMS/HCC); Chronic bilateral thoracic back pain; Migraine without aura and with status migrainosus, not intractable ([facility]/HCC); Primary insomnia; Morbid obesity due to excess calories ([facility]); Hypogonadism in male Start: 02-08-2024 End: 02-08-2024 ambulatory BLAYNE LOVE Not Available Start: 01-12-2024 End: 01-12-2024 Refill Greta Mae [facility] Comment on above: 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, bilateral Start: 11-09-2023 End: 11-09-2023 ambulatory BLAYNE LOVE Not Available Start: 08-10-2023 End: 08-10-2023 ambulatory BLAYNE LOVE Not Available Start: 06-30-2023 Refill Blayne Diego Work Phone: [facility] Comment on above: Chronic migraine wit hout aura, not intractable, without status migrainosus (CMS/HCC); Chronic migraine without aura (CMS/HCC) Start: 06-26-2023 Refill Blayne Diego Work Phone: [facility] Comment on above: Other specified abno rmal findings of blood chemistry Start: 06-23-2023 Refill Blayne Diego Work Phone: [facility] Comment on above: 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, bilateral Start: 08-01-[address] BLAYNE LOVE Facil [...] Start: 04-20-2017 End: 04-21-2017 Ambulatory DEFAULT PHYSICIAN Facility:[facility] Start: 04-15-2017 End: 04-16-2017 Ambulatory DEFAULT PHYSICIAN Facility:[facility] Procedures Date Procedure Procedure Detail Performing Clinician Start: 02-15-2024 ALL TESTOSTERONE Blayne saul MD Work Phone: Start: 06-24-[address] BLAYNE SAUL Comment on above: Performed By: #### P [facility] #### [facility] [address] [place] [address] Dr. Sheela Zhang Plan of Treatment Date Care Activity Detail Author Start: 01-12-2027 Screening for malign ant neoplasm of colon [facility] Healthcare Start: 12-22-2024 Glaucoma screening Diabetes: R etinopathy Screening [facility] Start: 11-12-2024 Urine screening for protein Diabetes: Urine Protein Screening [facility] Start: 05-14-2024 Hemoglobin A1c measurement Diabetes: Hemoglobin A1C [facility] Start: 05-02-2024 End: 05-02-2025 Hemoglobin A1c/Hemoglobin.total in Blood Hemoglobin A1c Lab Routine Type 2 diabetes mellitus with hyperglycemia, without long-term current use of insulin ([facility]) Expected: 05/02/2024 (Approximate), Expires: 05/02/2025 [facility] Work Phone: Comment on above: Expected: 05/02/2024 (Approximate), Expires: 05/02/2025 Start: 05-02-2024 End: 05-02-2024 Patient encounter procedure [facility] Comment on above: Arrived Start: 04-13-2024 End: 04-13-2024 Patient encounter procedure 04/13/2024 3:00 PM EST Office Visit [facility] [place] [facility] [address] [place] [id number] Elkin ManzoleDO [address] [place] [address] [facility] [address] Start: 02-08-2024 End: 02-07-2025 Testosterone [Mass/volume] in Serum or Plasma Testosterone Lab Routine Hypogonadism in male Expected: 02/08/2024 (Approximate), Expires: 02/07/2025 [facility] Work Phone: Comment on above: Expected: 02/08/2024 (Approximate), Expires: 02/07/2025 Start: 02-08-2024 End: 02-08-2024 Patient encounter procedure [facility] Comment on above: Arrived Start: 01-17-2024 Influenza vaccination Influenza Vacc ine (#1) [facility] Start: 10-20-2023 Hemoglobin A1c measurement Diabetes: Hemoglobin A1C [facility] Start: 08-10-2023 End: 08-10-2023 Patient encounter procedure 08/10/2023 11:45 AM EDT Office Visit [facility] [address] [place] [id number] Blayne Love MD [address] [place] [id number] [facility] Start: 06-24-2023 Urine screening for protein Diabetes: Urine Protein Screening [facility] Start: 01-16-2023 Influenza vaccination Influenza Vacc ine (#1) [facility] Start: 1981 Glaucoma screening Diabetes: R etinopathy Screening [facility] Start: 1970 Hemoglobin A1c measurement Diabetes: Hemoglobin A1C [facility] Start: 1970 Screening for malign ant neoplasm of colon [facility] Immunizations Immunization Date Immunization Notes Care Provider Fa cility 03-18-2023 influenza virus vacc ine, unspecified formulation Greta Mae [facility] 07-02-2022 influenza virus vacc ine, unspecified formulation Blayne Love MD Work Phone: [facility] Payers Date Payer Category Payer Unknown 2017 Medicaid [employer] [place] [id number] 2017-Present [address] [place] [address] [id number] 2017 Private Health Insurance [facility] MEDICAID [id number] 1970 Unknown [id number] 2..[id number]. 593 1970 Unknown [id number] 2.840.1.198171.3.579.2. 593 1971 Unknown [id number] 2.840.1.410057.3.579.2. 593 1971 Unknown [id number] 2.16840.1.906177.3.579.2. 593 1971 Unknown [id number] 2.16840.1.959793.3.579.2. 593 1971 Unknown [id number] 2..840.1.944343.3.579.2. 593 1971 Unknown [id number] 2.16.840.1.609814.3.579.2. 593 1971 Unknown [id number] 2.16.840.1.625242.3.579.2. 593 1971 Unknown [id number] 2.16.840.1.886022.3.579.2. 593 1971 Unknown [id number] 2.16.840.1.215379.3.579.2. 593 1971 Unknown [id number] 2.16.840.1.638742.3.579.2. 593 1971 Unknown [id number] 2.16.840.1.391930.3.579.2. 593 1971 Unknown [id number] 2.16.840.1.389506.3.579.2. 1259 1971 Unknown [id number] 2.16.840.1.868536.3.579.2. 1259 1971 Unknown [id number] 2.16.840.1.665724.3.579.2. 1259 1971 Unknown [id number] 2.16.840.1.552678.3.579.2. 1259 1959 Unknown [id number] 1959 Unknown [id number] 1959 Unknown [id number] Social History Date Type Detail Facility Start: 04-20-2023 Tobacco smoking status [facility] Never sm oked tobacco [facility] Start: 04-20-2023 Tobacco use and exposure Smoke less tobacco non-user [facility] Start: 04-20-2023 End: 02-08-2024 Alcohol intake Lifetime non-drinker (finding) [facility] Start: 04-16-2023 End: 02-08-2024 History of Social function [facility] Start: 04-16-2023 End: 02-08-2024 Humiliation, Afraid, Rape, and Kick questionnaire [HARK] [...] At Not on file [facility] Medical Equipment Procedure Code Equipment Code Equipment Origin al Text Equipment Identifier Dates [id number] Start: 12-30-2022 USE 1 A DAY [id number] Start: 03-07-2023 TEST ONCE A DAY [id number] Start: 04-12-2023 TEST ONCE A DAY [id number] Start: 07-08-2023 USE 1 A DAY [id number] Start: 02-22-2024 Clinical Notes 08-08-2021 to 05-02-2024 Blayne Love MD - 05/02/2024 9:57 AM Chi Love MD - 05/02/2024 9:57 AM Chi Love MD - 05/02/2024 9:57 AM Chi Love MD - 05/02/2024 9:57 AM EST Note Date & Type Note Facility 05-02-2024 History of Presen t illness Narrative Associated Problem(s): Type 2 diabetes mellitus with hyperglycemia, without long-term current use of insulin ([facility]) Not checking BS but and due for A1C. Continue mounjaro. Stick to ADA diet and limit carbs. Associated Problem(s): Migraine without aura and with status migrainosus, not intractable (CMS/HCC) ROSS stable with topamax and continue. Use OTC PRN. Associated Problem(s): Chronic bilateral thoracic back pain Pain getting worse and refer to pain management for evaluation. Use percocet PRN. Associated Problem(s): Chronic bilateral low back pain with bilateral sciatica Pain getting worse and refer to pain management for evaluation. Use percocet PRN. Associated Problem(s): Benign hypertension (CMS/HCC) BP controlled and monitor PRN. Images from the original note were not included. Subjective Patient ID: Elroy Murray is a 54 y.o. male who presents for Follow-up (3m f/up). Follow up DM, HTN, back pain, and migraines. Patient stable. Not checking BS away from office. Tries to eat well and stick to ADA diet. Denies signs of elevated BS such as polyuria, polyphagia or polydipsia. Checking BP PRN and typically controlled. BP normal today. Taking medication daily and tolerating without side effects. Back pain getting worse. Increased pain in mid thoracic region and between scapula. Pain occasionally radiates to ribs. Pain in low back and across top hips. Pain radiates into both gluteal region and down legs. Pain worse with walking and standing. Using percocet and mild relief. Migraines stable. ROSS 2-3 times a month. Throbbing pain in entire head associated with photophobia, phonophobia and nausea. Using fioricet PRN and helps. Review of Systems Constitutional: Negative for fatigue. Respiratory: Negative for cough, shortness of breath and wheezing. Cardiovascular: Negative for chest pain and palpitations. Gastrointestinal: Negative for abdominal pain, diarrhea, nausea and vomiting. Genitourinary: Negative for dysuria. Objective Physical Exam Constitutional: General: He is not in acute distress. Appearance: Normal appearance. HENT: Head: Normocephalic. Right Ear: Tympanic membrane and ear canal normal. Left Ear: Tympanic membrane and ear canal normal. Eyes: Extraocular Movements: Extraocular movements intact. Pupils: Pupils are equal, round, and reactive to light. Cardiovascular: Rate and Rhythm: Normal rate and regular rhythm. Heart sounds: No murmur heard. No friction rub. No gallop. Pulmonary: Breath sounds: Normal breath sounds. No wheezing, rhonchi or rales. Abdominal: General: Bowel sounds are normal. There is no distension. Palpations: Abdomen is soft. Tenderness: There is no abdominal tenderness. There is no guarding or rebound. Musculoskeletal: Left lower leg: No edema. Neurological: Mental Status: He is alert. Assessment/Plan Problem List Items Addressed This Visit Benign hypertension (CMS/HCC) BP controlled and monitor PRN. Chronic bilateral thoracic back pain Pain getting worse and refer to pain management for evaluation. Use percocet PRN. Relevant Orders Ambulatory referral to Pain Medicine Migraine without aura and with status migrainosus, not intractable (CMS/HCC) ROSS stable with topamax and continue. Use OTC PRN. Type 2 diabetes mellitus with hyperglycemia, without long-term current use of insulin (CMS/HCC) - Primary Not checking BS but and due for A1C. Continue mounjaro. Stick to ADA diet and limit carbs. Relevant Orders Hemoglobin A1c Chronic bilateral low back pain with bilateral sciatica Pain getting worse and refer to pain management for evaluation. Use percocet PRN. Relevant Orders Ambulatory referral to Pain Medicine documented in this encounter [facility] 04-19-2024 Telephone encount er Note [facility] 04-19-2024 Miscellaneous Notes Formattin g of this note might be different from the original. Script sent. Signs would be SOB, worsening cough, and fever. If no better over next few days will need seen. MAN PATIENT CALLED AND STATED HE HAS AN UPPER RESPIRATORY INFECTION AND WOULD LIKE SOMETHING CALLED IN. HE WOULD LIKE TO KNOW THE SIGNS FOR WALKING PNEUMONIA. AN documented in this encounter [facility] 04-13-2024 Telephone encount er Note Script sent. Signs would be SOB, worsening cough, and fever. If no better over next few days will need seen. MAN [facility] 04-13-2024 Telephone encount er Note PATIENT CALLED AND STATED HE HAS AN UPPER RESPIRATORY INFECTION AND WOULD LIKE SOMETHING CALLED IN. HE WOULD LIKE TO KNOW THE SIGNS FOR WALKING PNEUMONIA. AN [facility] 02-08-2024 History of Presen t illness Narrative Associated Problem(s): Type 2 diabetes mellitus with hyperglycemia, without long-term current use of insulin (CMS/HCC) Not checking BS but recent A1C 5.1. Continue mounjaro. Stick to ADA diet and limit carbs. Associated Problem(s): Primary insomnia Not sleeping and continue trazodone. Associated Problem(s): Morbid obesity due to excess calories (CMS/HCC) Weight down 9 pounds. Associated Problem(s): Hypogonadism in male Increased fatigue since off testosterone and repeat labs. Associated Problem(s): Migraine without aura and with status migrainosus, not intractable (CMS/HCC) ROSS stable with topamax and continue. Use OTC PRN. Associated Problem(s): Chronic bilateral thoracic back pain Pain stable and continue home PT exercises. Use medication PRN. Associated Problem(s): Benign hypertension (CMS/HCC) BP low and monitor PRN. Images from the original note were not included. Subjective Patient ID: Elroy Murray is a 53 y.o. male who presents for Follow-up (3 m) and Toe Injury. Follow up DM, HTN, back pain, migraines, and insomnia. Not checking BS away from office but last A1C 5.1. Tries to eat well and stick to ADA diet. Denies signs of elevated BS such as polyuria, polyphagia or polydipsia. Increased mounjaro and weight down 9 pounds. Checking BP PRN and typically controlled. BP low today. Taking medication daily and tolerating without side effects. Still not sleeping well. Taking trazodone but not helping as well. Added melatonin and helps. Some nights keeps thinking and can't clear mind. Not rested in am and tired during day. Upper back pain unchanged. Pain in upper back between scapula. Pain over center of spine and radiates round left ribs to left side. Pain with reaching, bending, and lifting. Spasms tolerable with zanaflex. Using percocet PRN and mild relief. Hard to stay active around house or complete ADLs due to pain. Migraines unchanged. ROSS 2-3 times a week. Throbbing pain in entire head associated with photophobia, phonophobia and nausea. Using medication PRN which helps. Review of Systems Constitutional: Negative for fatigue. Respiratory: Negative for cough, shortness of breath and wheezing. Cardiovascular: Negative for chest pain and palpitations. Gastrointestinal: Negative for abdominal pain, diarrhea, nausea and vomiting. Genitourinary: Negative for dysuria. Objective Physical Exam Constitutional: General: He is not in acute distress. Appearance: Normal appearance. HENT: Head: Normocephalic. Right Ear: Tympanic membrane and ear canal normal. Left Ear: Tympanic membrane and ear canal normal. Eyes: Extraocular Movements: Extraocular movements intact. Pupils: Pupils are equal, round, and reactive to light. Cardiovascular: Rate and Rhythm: Normal rate and regular rhythm. Heart sounds: No murmur heard. No friction rub. No gallop. Pulmonary: Breath sounds: Normal breath sounds. No wheezing, rhonchi or rales. Abdominal: General: Bowel sounds are normal. There is no distension. Palpations: Abdomen is soft. Tenderness: There is no abdominal tenderness. There is no guarding or rebound. Musculoskeletal: Left lower leg: No edema. Neurological: Mental Status: He is alert. Assessment/Plan Problem List Items Addressed This Visit Benign hypertension (CMS/HCC) BP low and monitor PRN. Chronic bilateral thoracic back pain Pain stable and continue home PT exercises. Use medication PRN. Migraine without aura and with status migrainosus, not intractable (CMS/HCC) ROSS stable with topamax and continue. Use OTC PRN. Type 2 diabetes mellitus with hyperglycemia, without long-term current use of insulin (CMS/HCC) - Primary Not checking BS but recent A1C 5.1. Continue mounjaro. Stick to ADA diet and limit carbs. Primary insomnia Not sleeping and continue trazodone. Morbid obesity due to excess calories (CMS/HCC) Weight down 9 pounds. Hypogonadism in male Increased fatigue since off testosterone and repeat labs. Relevant Orders Testosterone documented in this encounter [facility] 08-08-2021 Note PROCEDURE: XR KNEE R T 3V HISTORY: Pain of right knee joint COMPARISON: None. FINDINGS: BONES:No fracture, acute abnormality, or significant arthropathy. SOFT TISSUES:No visible soft tissue swelling. EFFUSION:None visible. OTHER: Negative. IMPRESSION: 1. No acute bone abnormality or significant degenerative changes. Electronically authenticated by: MADDI BENTLEY Date: 2021-08-08 17:55 [facility] 08-08-2021 Note PROCEDURE: XR ANKLE RT MIN [...] authenticated by: MADDI BENTLEY Date: 2021-08-08 17:26 [facility] 08-08-2021 Note PROCEDURE: XR ANKLE RT MIN [...] by: MADDI BENTLEY Date: 2021-08-08 17:26 [facility] Evaluation note Diagnosis Primary osteoarthritis of ankles, bilateral [facility] Diagnosis Other specified abnormal findings of blood chemistry [facility]* Diagnosis Chronic migraine without aura, not intractable, without status migrainosus (CMS/HCC) Chronic migraine without aura (CMS/HCC) Chronic migraine without aura, without mention of intractable migraine without mention of status migrainosus [facility]* Diagnosis Chronic migraine without aura, not intractable, without status migrainosus (CMS/HCC) Chronic migraine without aura (CMS/HCC) Chronic migraine without aura, without mention of intractable migraine without mention of status migrainosus documented [facility]* Diagnosis Type 2 diabetes mellitus with hyperglycemia, without long-term current use of insulin (CMS/HCC)- Primary Benign hypertension (CMS/HCC) Essential hypertension, benign Chronic bilateral thoracic back pain Primary osteoarthritis of ankles, bilateral Chronic migraine without aura with status migrainosus, not intractable (CMS/HCC) Primary insomnia Persistent disorder of initiating or maintaining sleep Type 2 diabetes mellitus with hyperglycemia, without long-term current use of insulin (CMS/HCC)- Primary Benign hypertension (CMS/HCC) Essential hypertension, benign Chronic bilateral thoracic back pain Primary osteoarthritis of ankles, bilateral Migraine without aura and with status migrainosus, not intractable (CMS/HCC) Primary insomnia Persistent disorder of initiating or maintaining sleep Morbid obesity (CMS/HCC) Morbid obesity Body mass index [BMI] 40.0-44.9, adult (Z68.41) Type 2 diabetes mellitus with hyperglycemia, without long-term current use of insulin (CMS/HCC)- Primary Benign hypertension (CMS/HCC) Essential hypertension, benign Colon cancer screening Special screening for malignant neoplasms, colon Chronic bilateral thoracic back pain Primary osteoarthritis of ankles, bilateral Migraine without aura and with status migrainosus, not intractable (CMS/HCC) Primary insomnia Persistent disorder of initiating or maintaining sleep Morbid obesity due to excess calories (CMS/HCC) Hypogonadism in male Encounter for long-term current use of medication Screening PSA (prostate specific antigen) Special screening for malignant neoplasm of prostate Dyslipidemia (CMS/HCC) Other and unspecified hyperlipidemia Type 2 diabetes mellitus with other specified complication (CMS/HCC) Male erectile dysfunction, unspecified Type 2 diabetes mellitus with hyperglycemia, without long-term current use of insulin (CMS/HCC)- Primary Benign hypertension (CMS/HCC) Essential hypertension, benign Chronic bilateral thoracic back pain Migraine without aura and with status migrainosus, not intractable (CMS/HCC) Primary insomnia Persistent disorder of initiating or maintaining sleep Morbid obesity due to excess calories (CMS/HCC) Hypogonadism in male Primary osteoarthritis of ankles, bilateral [facility] Diagnosis Type 2 diabetes mellitus with hyperglycemia, without long-term current use of insulin (CMS/HCC)- Primary Benign hypertension (CMS/HCC) Essential hypertension, benign Chronic bilateral thoracic back pain Primary osteoarthritis of ankles, bilateral Chronic migraine without aura with status migrainosus, not intractable (CMS/HCC) Primary insomnia Persistent disorder of initiating or maintaining sleep Type 2 diabetes mellitus with hyperglycemia, without long-term current use of insulin (CMS/HCC)- Primary Benign hypertension (CMS/HCC) Essential hypertension, benign Chronic bilateral thoracic back pain Primary osteoarthritis of ankles, bilateral Migraine without aura and with status migrainosus, not intractable (CMS/HCC) Primary insomnia Persistent disorder of initiating or maintaining sleep Morbid obesity (CMS/HCC) Morbid obesity Body mass index [BMI] 40.0-44.9, adult (Z68.41) Type 2 diabetes mellitus with hyperglycemia, without long-term current use of insulin (CMS/HCC)- Primary Benign hypertension (CMS/HCC) Essential hypertension, benign Colon cancer screening Special screening for malignant neoplasms, colon Chronic bilateral thoracic back pain Primary osteoarthritis of ankles, bilateral Migraine without aura and with status migrainosus, not intractable (CMS/HCC) Primary insomnia Persistent disorder of initiating or maintaining sleep Morbid obesity due to excess calories (CMS/HCC) Hypogonadism in male Encounter for long-term current use of medication Screening PSA (prostate specific antigen) Special screening for malignant neoplasm of prostate Dyslipidemia (CMS/HCC) Other and unspecified hyperlipidemia Type 2 diabetes mellitus with other specified complication (CMS/HCC) Male erectile dysfunction, unspecified Type 2 diabetes mellitus with hyperglycemia, without long-term current use of insulin (CMS/HCC)- Primary Benign hypertension (CMS/HCC) Essential hypertension, benign Chronic bilateral thoracic back pain Migraine without aura and with status migrainosus, not intractable (CMS/HCC) Primary insomnia Persistent disorder of initiating or maintaining sleep Morbid obesity due to excess calories (CMS/HCC) Hypogonadism in male Other specified abnormal findings of blood chemistry documented in this encounter [facility]* Diagnosis Type 2 diabetes mellitus with hyperglycemia, without long-term current use of insulin (CMS/HCC)- Primary Benign hypertension (CMS/HCC) Essential hypertension, benign Chronic bilateral thoracic back pain Primary osteoarthritis of ankles, bilateral Chronic migraine without aura with status migrainosus, not intractable (CMS/HCC) Primary insomnia Persistent disorder of initiating or maintaining sleep Type 2 diabetes mellitus with hyperglycemia, without long-term current use of insulin (CMS/HCC)- Primary Benign hypertension (CMS/HCC) Essential hypertension, benign Chronic bilateral thoracic back pain Primary osteoarthritis of ankles, bilateral Migraine without aura and with status migrainosus, not intractable (CMS/HCC) Primary insomnia Persistent disorder of initiating or maintaining sleep Morbid obesity (CMS/HCC) Morbid obesity Body mass index [BMI] 40.0-44.9, adult (Z68.41) Type 2 diabetes mellitus with hyperglycemia, without long-term current use of insulin (CMS/HCC)- Primary Benign hypertension (CMS/HCC) Essential hypertension, benign Colon cancer screening Special screening for malignant neoplasms, colon Chronic bilateral thoracic back pain Primary osteoarthritis of ankles, bilateral Migraine without aura and with status migrainosus, not intractable (CMS/HCC) Primary insomnia Persistent disorder of initiating or maintaining sleep Morbid obesity due to excess calories (CMS/HCC) Hypogonadism in male Encounter for long-term current use of medication Screening PSA (prostate specific antigen) Special screening for malignant neoplasm of prostate Dyslipidemia (CMS/HCC) Other and unspecified hyperlipidemia Type 2 diabetes mellitus with other specified complication (CMS/HCC) Male erectile dysfunction, unspecified Type 2 diabetes mellitus with hyperglycemia, without long-term current use of insulin (CMS/HCC)- Primary Benign hypertension (CMS/HCC) Essential hypertension, benign Chronic bilateral thoracic back pain Migraine without aura and with status migrainosus, not intractable (CMS/HCC) Primary insomnia Persistent disorder of initiating or maintaining sleep Morbid obesity due to excess calories (CMS/HCC) Hypogonadism in male Chronic migraine without aura, not intractable, without status migrainosus (CMS/HCC) Chronic migraine without aura (CMS/HCC) Chronic migraine without aura, without mention of intractable migraine without mention of status migrainosus [facility]* Diagnosis Type 2 diabetes mellitus with hyperglycemia, without long-term current use of insulin (CMS/HCC)- Primary Benign hypertension (CMS/HCC) Essential hypertension, benign Chronic bilateral thoracic back pain Primary osteoarthritis of ankles, bilateral Chronic migraine without aura with status migrainosus, not intractable (CMS/HCC) Primary insomnia Persistent disorder of initiating or maintaining sleep Type 2 diabetes mellitus with hyperglycemia, without long-term current use of insulin (CMS/HCC)- Primary Benign hypertension (CMS/HCC) Essential hypertension, benign Chronic bilateral thoracic back pain Primary osteoarthritis of ankles, bilateral Migraine without aura and with status migrainosus, not intractable (CMS/HCC) Primary insomnia Persistent disorder of initiating or maintaining sleep Morbid obesity (CMS/HCC) Morbid obesity Body mass index [BMI] 40.0-44.9, adult (Z68.41) Type 2 diabetes mellitus with hyperglycemia, without long-term current use of insulin (CMS/HCC)- Primary Benign hypertension (CMS/HCC) Essential hypertension, benign Colon cancer screening Special screening for malignant neoplasms, colon Chronic bilateral thoracic back pain Primary osteoarthritis of ankles, bilateral Migraine without aura and with status migrainosus, not intractable (CMS/HCC) Primary insomnia Persistent disorder of initiating or maintaining sleep Morbid obesity due to excess calories (CMS/HCC) Hypogonadism in male Encounter for long-term current use of medication Screening PSA (prostate specific antigen) Special screening for malignant neoplasm of prostate Dyslipidemia (CMS/HCC) Other and unspecified hyperlipidemia Type 2 diabetes mellitus with other specified complication (CMS/HCC) Male erectile dysfunction, unspecified Type 2 diabetes mellitus with hyperglycemia, without long-term current use of insulin (CMS/HCC)- Primary Benign hypertension (CMS/HCC) Essential hypertension, benign Chronic bilateral thoracic back pain Migraine without aura and with status migrainosus, not intractable (CMS/HCC) Primary insomnia Persistent disorder of initiating or maintaining sleep Morbid obesity due to excess calories (CMS/HCC) Hypogonadism in male Upper respiratory tract infection, unspecified type- Primary Chronic migraine without aura, not intractable, without status migrainosus (CMS/HCC) Chronic migraine without aura (CMS/HCC) Chronic migraine without aura, without mention of intractable migraine without mention of status migrainosus Primary osteoarthritis of ankles, bilateral documented in this encounter [facility]* Diagnosis Type 2 diabetes mellitus with hyperglycemia, without long-term current use of insulin (CMS/HCC)- Primary Benign hypertension (CMS/HCC) Essential hypertension, benign Chronic bilateral thoracic back pain Primary osteoarthritis of ankles, bilateral Chronic migraine without aura with status migrainosus, not intractable (CMS/HCC) Primary insomnia Persistent disorder of initiating or maintaining sleep Type 2 diabetes mellitus with hyperglycemia, without long-term current use of insulin (CMS/HCC)- Primary Benign hypertension (CMS/HCC) Essential hypertension, benign Chronic bilateral thoracic back pain Primary osteoarthritis of ankles, bilateral Migraine without aura and with status migrainosus, not intractable (CMS/HCC) Primary insomnia Persistent disorder of initiating or maintaining sleep Morbid obesity (CMS/HCC) Morbid obesity Body mass index [BMI] 40.0-44.9, adult (Z68.41) Type 2 diabetes mellitus with hyperglycemia, without long-term current use of insulin (CMS/HCC)- Primary Benign hypertension (CMS/HCC) Essential hypertension, benign Colon cancer screening Special screening for malignant neoplasms, colon Chronic bilateral thoracic back pain Primary osteoarthritis of ankles, bilateral Migraine without aura and with status migrainosus, not intractable (CMS/HCC) Primary insomnia Persistent disorder of initiating or maintaining sleep Morbid obesity due to excess calories (CMS/HCC) Hypogonadism in male Encounter for long-term current use of medication Screening PSA (prostate specific antigen) Special screening for malignant neoplasm of prostate Dyslipidemia (CMS/HCC) Other and unspecified hyperlipidemia Type 2 diabetes mellitus with other specified complication (CMS/HCC) Male erectile dysfunction, unspecified Type 2 diabetes mellitus with hyperglycemia, without long-term current use of insulin (CMS/HCC)- Primary Benign hypertension (CMS/HCC) Essential hypertension, benign Chronic bilateral thoracic back pain Migraine without aura and with status migrainosus, not intractable (CMS/HCC) Primary insomnia Persistent disorder of initiating or maintaining sleep Morbid obesity due to excess calories (CMS/HCC) Hypogonadism in male Type 2 diabetes mellitus with hyperglycemia, without long-term current use of insulin (CMS/HCC)- Primary Benign hypertension (CMS/HCC) Essential hypertension, benign Chronic bilateral thoracic back pain Migraine without aura and with status migrainosus, not intractable (CMS/HCC) Chronic bilateral low back pain with bilateral sciatica [facility]* Diagnosis Primary osteoarthritis of ankles, bilateral documented [facility]* Diagnosis Type 2 diabetes mellitus with hyperglycemia, without long-term current use of insulin (CMS/HCC)- Primary Benign hypertension (CMS/HCC) Essential hypertension, benign Chronic bilateral thoracic back pain Migraine without aura and with status migrainosus, not intractable (CMS/HCC) Primary insomnia Persistent disorder of initiating or maintaining sleep Morbid obesity due to excess calories (CMS/HCC) Hypogonadism in male documented [facility]* Diagnosis Primary osteoarthritis of ankles, bilateral documented in this encounter [facility] Summary [...] section and content) DATE CREATED AUTHOR 11/10/2017 [facility] DATE CREATED AUTHOR AUTHOR'S ORGANIZ ATION 08/08/2022 [facility] DATE CREATED AUTHOR AUTHOR'S ORGANIZ ATION 05/03/2024 [facility] Reason for Visit (unrecogniz ed section and content) Reason Onset Date Comments Med Refill 06/23/2023 Reason Comments Med Refill Reason Onset Date Comments Med Refill 02/22/2024 Reason Onset Date Comments Med Refill 03/21/2024 Reason Onset Date Comments Med Refill 03/22/2024 Reason Comments Follow-up 3m f/up Reason Onset Date Comments Med Refill 01/12/2024 Reason Comments Follow-up 3 m Toe Injury Reason Onset Date Comments Med Refill 02/15/2024 Care Teams (unrecognized sec tion and content) Customer Service Voice Relationship Specialty Start Date End Date Blayne Love MD PCP - General Family Medicine 05/18/22 Customer Service Voice Relationship Specialty Start Date End Date Blayne Love MD PCP - General Family Medicine 05/18/22 Customer Service Voice Relationship Specialty Start Date End Date Blayne Love MD [address] [place] [phone] PCP - General Family Medicine 08/10/23 Customer Service Voice Relationship Specialty Start Date End Date Blayne Love MD [address] [place] [phone] PCP - General Family Medicine 08/10/23 Customer Service Voice Relationship Specialty Start Date End Date Blayne Love MD [address] [place] [phone] PCP - General Family Medicine 08/10/23 Customer Service Voice Relationship Specialty Start Date End Date Blayne Love MD [address] [place] [phone] PCP - General Family Medicine 08/10/23 Customer Service Voice Relationship Specialty Start Date End Date Blayne Love MD [address] [place] [phone] PCP - General Family Medicine 08/10/23 Customer Service Voice Relationship Specialty Start Date End Date Blayne Love MD [address] [place] [phone] PCP - General Family Medicine 08/10/23 Customer Service Voice Relationship Specialty Start Date End Date Blayne Love MD [address] [place] [phone] PCP - General Family Medicine 08/10/23 Customer Service Voice Relationship Specialty Start Date End Date Blayne Love MD [address] [place] [phone] PCP - General Family Medicine 08/10/23 Customer Service Voice Relationship Specialty Start Date End Date Blayne Love MD [address] [place] [phone] PCP - General Family Medicine 08/10/23 Customer Service Voice Relationship Specialty Start Date End Date Blayne Love MD [address] [place] [phone] PCP - General Family Medicine 08/10/23 Customer Service Voice Relationship Specialty Start Date End Date Blayne Love MD [address] [place] [phone] PCP - General Family Medicine 08/10/23 Customer Service Voice Relationship Specialty Start Date End Date Blayne Love MD [address] [place] [phone] PCP - General Family Medicine 08/10/23 FOR RECORDS PERTAINING TO PATIENTS WHO ARE [...] BE BASED ON THE PRIMARY CLINICAL RECORDS. [facility] [employer], [facility]. provides no warranty or guarantee of the accuracy or completeness of information in this document.
[2024-06-03 14:08] LABS: Estimated Average Glucose 123 mg/dL; Glycohemoglobin A1C 5.9 % (4.5-6.2)
== END 2024-06-03 13:15 | disposition home or self-care (01) ==
LOC: LAB 13:16
PROVIDERS: PCP Family Medicine; Visit Provider Family Medicine
DX: E11.65 Type 2 diabetes mellitus with hyperglycemia (principal)
CPT/HCPCS: 36415; 83036

== ENCOUNTER 2024-11-29 11:37 | Outpatient (OUT) | payer OTHER, SELFPAY ==
[2024-11-29 12:20] LABS: Microalbum Creatinine Ratio Ur 46.2 mg/g (0.0-29.9)
[2024-11-29 12:25] LABS: Hematocrit 49.7 % (42.0-54.0); Hemoglobin 17.1 g/dL (14.0-18.0); Immature Granulocytes Abs Auto 0.08 10^3/uL (0.00-0.03); Immature Granulocytes Pct Auto 0.7 % (0.0-0.5); Lymphocytes Absolute Auto 3.2 10^3/uL (1.2-3.8); Mean Corpuscular HGB Conc 34.4 g/dL (29.9-35.2); Mean Corpuscular Hemoglobin 30.5 pg (25.9-34.0); Mean Corpuscular Volume 88.8 fL (80.0-94.0); Platelet Count 262 10^3/uL (150-450); Red Blood Count 5.60 10^6/uL (4.70-6.10); White Blood Count 11.8 10^3/uL (4.0-11.0)
[2024-11-29 12:56] LABS: Alanine Aminotransferase 56 U/L (16-63); Albumin Globulin Ratio 1.2; Albumin Level 4.5 g/dL (3.4-5.0); Alkaline Phosphatase 117 U/L (46-116); Anion Gap 18.9; Aspartate Amino Transferase 38 U/L (15-37); Blood Urea Nitrogen 18.0 mg/dL (7.0-18.0); Calcium 9.6 mg/dL (8.5-10.1); Carbon Dioxide 25.1 mmol/L (21.0-32.0); Chloride 99 mmol/L (98-107); Cholesterol 168 mg/dL (<=200); Estimated GFR (African America >60 (>=60 mL/min/1.73m^2); Estimated GFR (Non-African Ame >60 (>=60 mL/min/1.73m^2); Globulin 3.8 g/dL; Glucose 317 mg/dL (74-106); HDL Cholesterol 42 mg/dL (40-60); Potassium 4.0 mmol/L (3.5-5.1); Sodium 139 mmol/L (136-145); Thyroid Stimulating Hormone 1.698 uIU/mL (0.358-3.740); Total Protein 8.3 g/dL (6.4-8.2); Triglycerides 346 mg/dL (<=150); VLDL CHOLESTEROL 69.2 mg/dL
== END 2024-11-29 11:38 | disposition home or self-care (01) ==
LOC: LAB 11:40
PROVIDERS: PCP Family Medicine; Visit Provider Family Medicine
DX: E11.65 Type 2 diabetes mellitus with hyperglycemia (principal); I10 Essential (primary) hypertension; Z79.899 Other long term (current) drug therapy; E78.5 Hyperlipidemia, unspecified; Z12.5 Encounter for screening for malignant neoplasm of prostate; E66.813 Obesity, class 3; E66.01 Morbid (severe) obesity due to excess calories; Z68.41 Body mass index [BMI] 40.0-44.9, adult
CPT/HCPCS: 36415; 80048; 80061; 80076; 82043; 82570; 84443; 85025; G0103